=== PATIENT | female | born 1940 | race Caucasian/White ===

== ENCOUNTER → 2016-12-31 | Outpatient (CLI) | payer MEDICARE ==
--- NOTE | 2016-12-31 15:59 | US ---
EXAMINATION TYPE: US kidneys/renal and bladder DATE OF EXAM: 12/31/2016 COMPARISON: NONE CLINICAL HISTORY: N13.2 HYDRONEPHROSIS. Right back pain EXAM MEASUREMENTS: Right Kidney: 10.2 x 4.4 x 5.4 cm Left Kidney: 10.6 x 5.3 x 3.9 cm Right Kidney: multiple stones with largest = 1.4cm, anechoic area anteriorly = 3.8 x 2.4 x 3.7cm Left Kidney: probable stones lower pole, largest = 0.8cm Bladder: not fully distended Bilateral Jets seen: no Incidental finding: cholelithiasis IMPRESSION: 1. Right renal stones without hydronephrosis. 2. Cholelithiasis. 3. Left renal stones without hydronephrosis.
== END | disposition home or self-care (01) ==
LOC: RADUSWWP 14:54
PROVIDERS: ATTEND Internal Medicine Hematology & Oncology
DX: C34.91 Malignant neoplasm of unspecified part of right bronchus or lung (principal); E03.9 Hypothyroidism, unspecified; N20.0 Calculus of kidney; K80.20 Calculus of gallbladder without cholecystitis without obstruction
CPT/HCPCS: 76770

== ENCOUNTER 2019-08-23 21:12 | Inpatient (IN) | payer MEDICARE ==
[2019-08-23] MEDS ORDERED: SODIUM CHLORIDE 0.9% 1,000 ML IV STA (21:58)
[2019-08-23 22:15] LABS: Basophils # (A) 0.1 k/uL (0-0.2); Basophils % (A) 0 %; Eosinophils # (A) 0.2 k/uL (0-0.7); Eosinophils % (A) 1 %; HCT 41.9 % (34.0-46.0); HGB 13.5 gm/dL (11.4-16.0); Hypochromasia Slight; Lymphocytes # (A) 1.1 k/uL (1.0-4.8); Lymphocytes % (A) 7 %; MCH 28.8 pg (25.0-35.0); MCHC 32.3 g/dL (31.0-37.0); MCV 89.4 fL (80.0-100.0); Mean Platelet Volume 8.4; Monocytes % (A) 6 %; Neutrophils # (A) 12.8 k/uL (1.3-7.7); Neutrophils % (A) 84 %; Platelet Count 363 k/uL (150-450); RBC 4.68 m/uL (3.80-5.40); RDW 15.7 % (11.5-15.5); WBC 15.3 k/uL (3.8-10.6)
[2019-08-23 22:24] LABS: Albumin 3.9 g/dL (3.5-5.0); Calcium 9.3 mg/dL (8.4-10.2); Potassium 4.8 mmol/L (3.5-5.1); Total Bilirubin 1.3 mg/dL (0.2-1.3); Total Protein 7.3 g/dL (6.3-8.2)
--- NOTE | 2019-08-23 22:27 | XR ---
EXAMINATION TYPE: XR chest 2V DATE OF EXAM: 08/23/2019 COMPARISON: 04/29/2016 HISTORY: Difficulty breathing. TECHNIQUE: FINDINGS: There is extensive coarse interstitial infiltrate throughout the lungs. There is slight smiley vated right diaphragm. There is right shoulder prosthesis. There are chest leads. There is some bulki ness of the pulmonary selena. I do not suspect heart failure. IMPRESSION: Extensive pulmonary fibrosis similar to old exam. There is probably some bronchial adenop athy. Sarcoidosis is possible.
[2019-08-23 22:52] LABS: INR 1.1 (<1.2); Partial Thromboplastin Time 22.5 sec (22.0-30.0); Prothrombin Time 11.5 sec (9.0-12.0)
[2019-08-23] MEDS ORDERED: methylPREDNISolone SOD SUCCI 125 MG/2 ML VIAL IV STA (23:12)
[2019-08-23] MEDS ORDERED: cefTRIAXone IN SWFI 1,000 MG/10 ML SYRINGE IVP STA (23:12)
[2019-08-23] MEDS ORDERED: IPRATROPIUM-ALBUTEROL 3 ML NEB INHALATION STA (23:12)
--- NOTE | 2019-08-23 23:12 | ED ---
SOB HPI - General Chief Complaint: Shortness of Breath Stated Complaint: HERNAN, fever Time Seen by Provider: 08/23/19 21:44 Source: patient, family, RN notes reviewed, old records reviewed Mode of arrival: wheelchair Limitations: no limitations - History of Present Illness Initial Comments: This 79-year-old female history of COPD and interstitial lung disease who states she's had progressively worsening shortness of breath or past couple days with fever cough with green-yellow phlegm no overt chest pain however. She has had sweats today. States her temperature was up to 100.6 or higher. She was noted have 80% saturation on room air she does not use of grass or nebulizers she states or inhalers. She did recently have a left jugular vein clot and was treated [facility] approximately 2 weeks ago. No other complaints or modifying factors at this time MD Complaint: shortness of breath, cough - Related Data Allergies Allergy/AdvReac Type Severity Reaction Status Date / Time amlodipine Allergy Swelling Verified 08/23/19 21:40 atorvastatin Allergy Unknown Verified 08/23/19 21:40 meperidine [From Demerol] Allergy Nausea & Verified 08/23/19 21:40 Vomiting Review of Systems ROS Statement: Those systems with pertinent positive or pertinent negative responses have been documented in the HPI. ROS Other: All systems not noted in ROS Statement are negative. Past Medical History Past Medical History: Cancer, GERD/Reflux, Hyperlipidemia, Hypertension, Pneumonia Additional Past Medical History / Comment(s): lung cancer History of Any Multi-Drug Resistant Organisms: None Reported Past Surgical History: Joint Replacement Additional Past Surgical History / Comment(s): right upper lobe removal from lung cancer 2005, bilat knee, R shoulder Past Psychological History: No Psychological Hx Reported Smoking Status: Never smoker Past Alcohol Use History: Occasional Past Drug Use History: None Reported General Exam - General Exam Comments Initial Comments: This is a well-developed well-nourished awake alert oriented 3 female Limitations: no limitations General appearance: alert, anxious Head exam: Present: atraumatic, normocephalic, normal inspection Eye exam: Present: normal appearance, PERRL, EOMI. Absent: scleral icterus, conjunctival injection, periorbital swelling ENT exam: Present: normal exam, mucous membranes moist Neck exam: Present: normal inspection. Absent: tenderness, meningismus, lymphadenopathy Respiratory exam: Present: wheezes, decreased breath sounds. Absent: respiratory distress, rales, rhonchi, stridor Cardiovascular Exam: Present: regular rate, normal rhythm, normal heart sounds. Absent: systolic murmur, diastolic murmur, rubs, gallop, clicks GI/Abdominal exam: Present: soft, normal bowel sounds. Absent: distended, tenderness, guarding, rebound, rigid Extremities exam: Present: normal inspection, full ROM, normal capillary refill. Absent: tenderness, pedal edema, joint swelling, calf tenderness Back exam: Present: normal inspection Neurological exam: Present: alert, oriented X3, CN II-XII intact Psychiatric exam: Present: normal affect, normal mood Skin exam: Present: warm, intact, normal color, diaphoretic. Absent: rash Course Vital Signs 08/23/19 08/23/19 08/23/19 21:33 22:21 22:53 Temperature 99.7 F H 99.2 F Pulse Rate 96 Respiratory 22 20 18 Rate Blood Pressure 120/70 131/73 O2 Sat by Pulse 82 L 97 Oximetry Medical Decision Making - Medical Decision Making Reevaluation patient reveals she still dyspneic and wheezing x-ray shows evidence of interstitial lung disease no definitive pneumonia though somewhat was suspected. I did discuss findings with the patient she'll be admitted she has evidence of pneumonitis as well as asthmatic bronchitis and fever patient be admitted to Dr. Sanchez with Dr. Briceno on consult - Lab Data Result diagrams: 08/23/19 22:02 08/23/19 22:02 Lab Results 08/23/19 08/23/19 08/23/19 Range/Units 22:02 22:02 22:02 WBC 15.3 H (3.8-10.6) k/uL RBC 4.68 (3.80-5.40) m/uL Hgb 13.5 (11.4-16.0) gm/dL Hct 41.9 (34.0-46.0) % MCV 89.4 (80.0-100.0) fL MCH 28.8 (25.0-35.0) pg MCHC 32.3 (31.0-37.0) g/dL RDW 15.7 H (11.5-15.5) % Plt Count 363 (150-450) k/uL Neutrophils % 84 % Lymphocytes % 7 % Monocytes % 6 % Eosinophils % 1 % Basophils % 0 % Neutrophils # 12.8 H (1.3-7.7) k/uL Lymphocytes # 1.1 (1.0-4.8) k/uL Monocytes # 1.0 (0-1.0) k/uL Eosinophils # 0.2 (0-0.7) k/uL Basophils # 0.1 (0-0.2) k/uL Hypochromasia Slight PT 11.5 (9.0-12.0) sec INR 1.1 (<1.2) APTT 22.5 (22.0-30.0) sec Sodium 136 L (137-145) mmol/L Potassium 4.8 (3.5-5.1) mmol/L Chloride 99 (98-107) mmol/L Carbon Dioxide 25 (22-30) mmol/L Anion Gap 12 mmol/L BUN 25 H (7-17) mg/dL Creatinine 1.48 H (0.52-1.04) mg/dL Est GFR (CKD-EPI)AfAm 38 (>60 ml/min/1.73 sqM) Est GFR (CKD-EPI)NonAf 33 (>60 ml/min/1.73 sqM) Glucose 128 H (74-99) mg/dL Plasma Lactic Acid Ruben (0.7-2.0) mmol/L Calcium 9.3 (8.4-10.2) mg/dL Magnesium 2.0 (1.6-2.3) mg/dL Total Bilirubin 1.3 (0.2-1.3) mg/dL AST 24 (14-36) U/L ALT 15 (4-34) U/L Alkaline Phosphatase 178 H (38-126) U/L Creatine Kinase 82 (30-135) U/L Troponin I (0.000-0.034) ng/mL NT-Pro-B Natriuret Pep pg/mL Total Protein 7.3 (6.3-8.2) g/dL Albumin 3.9 (3.5-5.0) g/dL 08/23/19 08/23/19 08/23/19 Range/Units 22:02 22:02 22:02 WBC (3.8-10.6) k/uL RBC (3.80-5.40) m/uL Hgb (11.4-16.0) gm/dL Hct (34.0-46.0) % MCV (80.0-100.0) fL MCH (25.0-35.0) pg MCHC (31.0-37.0) g/dL RDW (11.5-15.5) % Plt Count (150-450) k/uL Neutrophils % % Lymphocytes % % Monocytes % % Eosinophils % % Basophils % % Neutrophils # (1.3-7.7) k/uL Lymphocytes # (1.0-4.8) k/uL Monocytes # (0-1.0) k/uL Eosinophils # (0-0.7) k/uL Basophils # (0-0.2) k/uL Hypochromasia PT (9.0-12.0) sec INR (<1.2) APTT (22.0-30.0) sec Sodium (137-145) mmol/L Potassium (3.5-5.1) mmol/L Chloride (98-107) mmol/L Carbon Dioxide (22-30) mmol/L Anion Gap mmol/L BUN (7-17) mg/dL Creatinine (0.52-1.04) mg/dL Est GFR (CKD-EPI)AfAm (>60 ml/min/1.73 sqM) Est GFR (CKD-EPI)NonAf (>60 ml/min/1.73 sqM) Glucose (74-99) mg/dL Plasma Lactic Acid Ruben 1.4 (0.7-2.0) mmol/L Calcium (8.4-10.2) mg/dL Magnesium (1.6-2.3) mg/dL Total Bilirubin (0.2-1.3) mg/dL AST (14-36) U/L ALT (4-34) U/L Alkaline Phosphatase (38-126) U/L Creatine Kinase (30-135) U/L Troponin I <0.012 (0.000-0.034) ng/mL NT-Pro-B Natriuret Pep 1340 pg/mL Total Protein (6.3-8.2) g/dL Albumin (3.5-5.0) g/dL - EKG Data -: EKG Interpreted by Ms EKG shows normal: sinus rhythm EKG Comments: Sinus tachycardia 102 QRS 90 QT since QTC 3:30/440 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
[2019-08-23] MEDS ORDERED: PNEUMONIA PROTOCOL UTILIZED 1 EACH MISC PO PRN (23:24)
[2019-08-23] MEDS ORDERED: AZITHROMYCIN 500 MG in SODIUM CHLORIDE 0.9% 250 ML IVPB STA (23:24)
[2019-08-23] MEDS: IPRATROPIUM-ALBUTEROL 3 ML NEB INHALATION SCH (23:37)
[2019-08-24 00:47] LABS: Appearance,Urine Cloudy (Clear); Bacteria,Urine Occasional /hpf; Bilirubin,Urine Negative (Negative); Blood,Urine Trace (Negative); Calcium Oxalate Crystals,Urine Few /hpf; Color,Urine Yellow; Glucose,Urine (UA) Negative (Negative); Hyaline Casts,Urine 3 /lpf (0-2); Ketones,Urine Negative (Negative); Leukocyte Esterase,Urine Large (Negative); Nitrite,Urine Negative (Negative); PH, Urine 6.5 (5.0-8.0); Protein,Urine 1+ (Negative); RBC,Urine 29 /hpf (0-5); Specific Gravity,Urine 1.014 (1.001-1.035); Squamous Epithelial Cell,Urine 3 /hpf (0-4); WBC,Urine 87 /hpf (0-5)
[2019-08-24] MEDS: SODIUM CHLORIDE 0.9% 1,000 ML IV SCH ×2 (00:48→10:41)
[2019-08-24] MEDS: methylPREDNISolone SOD SUCCI 125 MG/2 ML VIAL IV SCH ×5 (00:53→23:28)
[2019-08-24] MEDS: IPRATROPIUM-ALBUTEROL 3 ML NEB INHALATION SCH ×5 (06:03→21:29)
--- NOTE | 2019-08-24 07:14 | XR ---
EXAMINATION TYPE: XR chest 2V DATE OF EXAM: 08/24/2019 COMPARISON: Chest x-ray 08/23/2019, 04/29/2016 HISTORY: Pneumonia TECHNIQUE: Frontal and lateral views of the chest are obtained. FINDINGS: There is no pleural effusion or pneumothorax seen. The cardiac silhouette size is stable. Patchy perihilar density is present with prominence of interstitium, some and like areas of increa sed attenuation are present at the lung bases likely subsegmental atelectatic change. The osseous str uctures are intact, patient is status post right shoulder arthroplasty, lumbar fusion, there is an S- shaped thoracic lumbar scoliosis. There are overlying cardiac leads. Prominence of the pulmonary miguel ry could be indicative of pulmonary artery hypertension. IMPRESSION: Correlate for pulmonary artery hypertension. Possible interstitial lung disease, atelect asis or scarring, atelectasis. Additional findings above.
[2019-08-24] MEDS ORDERED: FUROSEMIDE 10 MG/ML 2 ML VIAL IV ONE (10:17)
--- NOTE | 2019-08-24 11:57 | P.CNPUL ---
History of Present Illness Consult date: 08/24/19 Requesting physician: Didi Sanchez Reason for consult: dyspnea, abnormal CXR/CT Chief complaint: Shortness of breath, fever, phlegm production History of present illness: This is a very pleasant 79-year-old female patient who follows with Dr. Redd as her primary care provider. She has a history of lung cancer with previous right upper lobe ectomy in 2006, hyperlipidemia, GERD, hypertension. Lifelong nonsmoker. She was recently found to have a blood clot in a blood vessel in the left neck and was placed on Eliquis. During this workup some pulmonary nodules were noted. She follows with Dr. Collier in our office for COPD. She is maintained on Symbicort, Incruse, albuterol. She was just there 08/17/2019. At that time she had recently had a CAT scan of the chest that Pepper Lind that mentioned possible lung nodules. He had set her up for a PET scan next week. She presented here to the emergency room yesterday with complaints of increasing shortness of breath, fever, greenish yellow sputum production. Chest x-ray shows possible pulmonary artery hypertension, interstitial lung disease, atelectasis or scarring. She was initiated on DuoNeb inhalations, IV Solu-Medro l, antibiotics in the form of ceftriaxone and azithromycin. She is seen today in consultation on the regular medical floor. She is awake and alert in no acute distress. She states she is feeling quite a bit better today as compared to yesterday. She is maintaining O2 saturations in the low 90s on 4 L/m per nasal cannula. She's afebrile. Hemodynamically stable. Urine culture pending. White count 15.3. Hemoglobin 13.5. Sodium 136. Potassium 4.8. Creatinine 1.48. Troponin negative. ProBNP 1340. Isaacs virus screen pending. Review of Systems REVIEW OF SYSTEMS: CONSTITUTIONAL: Denies any recent significant weight loss or weight gain. EYES: Denies change in vision. EARS, NOSE, MOUTH, THROAT: Denies headaches, denies sore throat. CARDIOVASCULAR: Denies chest pain, palpitations or syncopal episodes. RESPIRATORY: Positive for shortness of breath, cough, congestion no hemoptysis. GASTROINTESTINAL: Denies change in appetite, denies abdominal pain GENITOURINARY: Denies hematuria, denies infections. MUSKULOSKELETAL: Denies pain, denies swelling. INTEGUMENTARY: Denies rash, denies eczema. NEUROLOGICAL: Denies recent memory loss, no recent seizure activity. PSYCHIATRIC: Denies anxiety, denies depression. HEMATOLOGIC/LYMPHATIC: Denies anemia, denies enlarged lymph nodes. Past Medical History Past Medical History: Cancer, GERD/Reflux, Hyperlipidemia, Hypertension, Pneumonia Additional Past Medical History / Comment(s): lung cancer History of Any Multi-Drug Resistant Organisms: None Reported Past Surgical History: Joint Replacement Additional Past Surgical History / Comment(s): right upper lobe removal from lung cancer 2005, bilat knee, R shoulder Past Psychological History: No Psychological Hx Reported Smoking Status: Never smoker Past Alcohol Use History: Occasional Past Drug Use History: None Reported Medications and Allergies Home Medications Medication Instructions Recorded Confirmed Type Albuterol Inhaler [Ventolin Hfa 2 puff INHALATION RT-QID PRN 08/23/19 08/23/19 History Inhaler] Allopurinol [Zyloprim] 100 mg PO BID 08/23/19 08/23/19 History Apixaban [Eliquis] 5 mg PO BID 08/23/19 08/23/19 History Aspirin EC [Ecotrin Low Dose] 81 mg PO HS 08/23/19 08/23/19 History Budesonide/Formoterol Fumarate 2 puff INHALATION RT-BID 08/23/19 08/23/19 History [Symbicort 160-4.5 Mcg Inhaler] Cholecalciferol [Vitamin D3 (25 1,000 unit PO DAILY 08/23/19 08/23/19 History Mcg = 1000 Iu)] Cyanocobalamin (Vitamin B-12) 1,000 mcg PO DAILY 08/23/19 08/23/19 History [Vitamin B-12] Doxazosin [Cardura] 4 mg PO HS 08/23/19 08/23/19 History Furosemide [Lasix] 20 mg PO DAILY 08/23/19 08/23/19 History Levothyroxine Sodium [Synthroid] 150 mcg PO DAILY 08/23/19 08/23/19 History Montelukast Sodium [Singulair] 10 mg PO HS 08/23/19 08/23/19 History Omeprazole [PriLOSEC] 20 mg PO DAILY 08/23/19 08/23/19 History Pravastatin Sodium [Pravachol] 40 mg PO HS 08/23/19 08/23/19 History Tolterodine ER [Detrol LA] 4 mg PO DAILY 08/23/19 08/23/19 History Umeclidinium Sharon [Incruse 1 puff INHALATION RT-DAILY 08/23/19 08/23/19 History Ellipta] Vit C/E/Zn/Coppr/Lutein/Zeaxan 2 cap PO DAILY 08/23/19 08/23/19 History [Preservision Areds 2 Softgel] Allergies Allergy/AdvReac Type Severity Reaction Status Date / Time amlodipine Allergy Swelling Verified 08/23/19 23:43 atorvastatin Allergy Unknown Verified 08/23/19 23:43 meperidine [From Demerol] Allergy Nausea & Verified 08/23/19 23:43 Vomiting Physical Exam Vitals: Vital Signs Temp Pulse Pulse Resp BP BP Pulse Ox 08/24/19 08:00 82 18 08/24/19 06:18 88 08/24/19 06:10 82 08/24/19 03:46 97.6 F 82 18 144/83 92 L 08/24/19 00:15 98.3 F 77 20 139/79 97 08/23/19 23:51 90 08/23/19 23:43 90 08/23/19 23:35 98.2 F 114 H 20 154/82 94 L 08/23/19 23:26 91 135 H 135/87 97 08/23/19 22:53 99.2 F 96 18 131/73 97 08/23/19 22:21 20 08/23/19 21:33 99.7 F H 22 120/70 82 L Intake and Output 08/23/19 08/24/19 08/24/19 22:59 06:59 14:59 Intake Total 240 Output Total 900 Balance -900 240 Intake: Oral 240 Output: Urine 900 Other: # Voids 1 Weight 117.934 kg 117.934 kg GENERAL EXAM: Alert, active, very pleasant 79-year-old female patient, on 4 L nasal cannula comfortable in no apparent distress. HEAD: Normocephalic. EYES: Normal reaction of pupils, equal size. NOSE: Clear with pink turbinates. THROAT: No erythema or exudates. NECK: No masses, no JVD. CHEST: No chest wall deformity. LUNGS: Equal air entry with bilateral scattered rhonchi, end expiratory wheeze, crackles in the posterior bases CVS: S1 and S2 normal with no audible murmur, regular rhythm. ABDOMEN: No hepatosplenomegaly, normal bowel sounds, no guarding or rigidity. SPINE: No scoliosis or deformity SKIN: No rashes CENTRAL NERVOUS SYSTEM: No focal deficits, tone is normal in all 4 extremities. EXTREMITIES: There is no peripheral edema. No clubbing, no cyanosis. Peripheral pulses are intact. Results - Laboratory Findings CBC and BMP: 08/23/19 22:02 08/23/19 22:02 PT/INR, D-dimer PT 11.5 sec (9.0-12.0) 08/23/19 22:02 INR 1.1 (<1.2) 08/23/19 22:02 Abnormal lab findings: Abnormal Labs 08/23/19 08/23/19 08/23/19 21:58 22:02 22:02 WBC 15.3 H RDW 15.7 H Neutrophils # 12.8 H Sodium 136 L BUN 25 H Creatinine 1.48 H Glucose 128 H Alkaline Phosphatase 178 H Urine Appearance Cloudy H Urine Protein 1+ H Urine Blood Trace H Ur Leukocyte Esterase Large H Urine RBC 29 H Urine WBC 87 H Calcium Oxalate Crystal Few H Urine Bacteria Occasional H Hyaline Casts 3 H - Diagnostic Findings Chest x-ray: image reviewed Assessment and Plan Assessment: 1 Acute on chronic obstructive pulmonary disease, complicated by purulent tracheobronchitis. Chest x-ray revealing possible interstitial lung disease, pulmonary hypertension, atelectasis/scarring. 2 Acute hypoxic respiratory failure secondary to above 3 History of lung cancer status post right upper lobectomy and recent findings of pulmonary nodules on CAT scan done at [facility], PET scan pending for next week. 4 Recent diagnosis of a blood clot in the blood vessel of the left neck, currently on Eliquis 5 Hyperlipidemia 6 Hypertension 7 Osteoarthritis with previous joint replacements 8 Acute kidney injury, creatinine 1.48. Plan: The patient was seen and evaluated by Dr. Briceno Chest x-ray and labs reviewed CoVID 19 screen pending Obtain pro-calcitonin level Continue current treatment plan Give one dose of Lasix 20 mg IVP 1 Repeat chest x-ray in a.m. We will continue to follow and make further recommendations based on her clinical status. I, the cosigning physician, performed a history & physical examination of the patient. Lungs sounds with few scattered rhonchi, crackles in bilateral posterior bases, end expiratory wheeze, diminished. Maintaining good O2 saturations in the 90s on 4 L/m per nasal cannula. I discussed the assessment and plan of care with my nurse practitioner, Kristi Rodas. I attest to the above note as dictated by her.
[2019-08-24] MEDS ORDERED: VIT A,C & E-LUTEIN-MINERALS 1 EACH TAB PO SCH (13:30)
[2019-08-24] MEDS: OXYBUTYNIN 10 MG TAB.ER.24 PO SCH (15:12)
[2019-08-24] MEDS: LEVOTHYROXINE 75 MCG TAB PO SCH (15:12)
[2019-08-24] MEDS: PANTOPRAZOLE 40 MG TABLET PO SCH (15:12)
[2019-08-24] MEDS ORDERED: IPRATROPIUM-ALBUTEROL 3 ML NEB INHALATION PRN (15:46)
[2019-08-24] MEDS ORDERED: HYDROcodone/APAP 5-325MG 1 EACH TAB PO PRN (15:47)
--- NOTE | 2019-08-24 16:32 | CT ---
EXAMINATION TYPE: CT chest wo con DATE OF EXAM: 08/24/2019 COMPARISON: Radiographs same day HISTORY: 79-year-old female Interstitial pneumonia. TECHNIQUE: Contiguous axial scanning of the chest without IV contrast. Coronal and sagittal reconstru ctions performed. CT DLP: 847 mGycm Automated exposure control for dose reduction was used. FINDINGS: Heart normal size without pericardial effusion. Extensive three-vessel coronary artery calcifications are present. Additional aortic valvular calcifications. 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 Mild to moderate atherosclerotic arch calcifications with conventi onal arch vessel branching anatomy. Tortuous descending thoracic aorta. Aneurysmal distal descending thoracic aorta at 3.2 cm. Ectatic infrarenal abdominal aorta partially visualized measuring up to at least 2.9 cm. Underlying a neurysm lower down is not excluded. Partially visualized 1.7 cm calcification possibly within the right renal collecting system. Partiall y visualized gallstone measuring at least 9 mm. Breathing motion artifact in the abdomen. Large caliber to the main right and left pulmonary arteries at 3.2 and 3.1 cm, respectively, suggesti ng underlying pulmonary hypertension. Scattered nonenlarged and mildly enlarged mediastinal lymph nodes are present measuring up to 1.1 cm in the AP window and 1.3 cm in the low right paratracheal region. Patchy peripheral groundglass opacities. Some opacities also extend along the left upper lobe broncho vascular bundles. Some nodular areas are also present, for example in the posterior right lower lobe measuring 9 mm axial image 30, 8 mm anterior right midlung, axial image 21, and 1.5 x 1.1 cm in the a nterior left upper lobe, axial image 16. Fat-containing left Bochdalek hernia. Bones: Partially visualized reverse right shoulder arthroplasty. S-shaped scoliosis with extensive f usion hardware within the lumbar spine. IMPRESSION: 1. PATCHY PERIPHERAL INFILTRATES AND GROUNDGLASS WELL SCATTERED NODULAR AREAS. SOME GROUNDGLASS ALSO EXTENDS ALONG THE BRONCHOVASCULAR BUNDLES. DIFFERENTIAL CONSIDERATIONS INCLUDE ATYPICAL PNEUMON IAS (INCLUDING COVID PNEUMONIA) AND INTERSTITIAL PNEUMONITIS SUCH HEEL SEWER. CLINICALLY CORRELATE. 2. GIVEN THE MORE NODULAR AREAS MEASURING UP TO 1.5 CM, FOLLOW-UP IN 3 MONTHS AFTER TREATMENT TO ENSU RE CLEARANCE. 3. BORDERLINE AND MILDLY ENLARGED MEDIASTINAL LYMPH NODES MEASURING UP TO 1.3 CM, PROBABLY REACTIVE. THESE SHOULD ALSO BE REASSESSED AT THE 3 MONTH FOLLOW-UP. 4. 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
--- NOTE | 2019-08-24 17:09 | HP ---
HISTORY AND PHYSICAL DATE OF SERVICE: 08/24/2019 CHIEF COMPLAINT: Shortness of breath and fever. HISTORY OF PRESENT ILLNESS: This 79-year-old woman, being followed Dr. Oscar Redd in the outpatient setting, is living in the [facility]. The patient has a previous history of hypertension, hyperlipidemia, history of pneumonia, lung cancer, GERD. Patient has a history of apparent interstitial lung disease also. Patient worsening of her shortness of breath and fever for the last several days. The patient came to [facility]. Saturation was only 80% oxygen and temperature was 100.6. The patient on evaluation white count is elevated at 15.3, and creatinine is 1.48. The baseline creatinine was 1.27. The UA was also abnormal. There is no history of any recent travel at this time. She is being closely monitored. The most recent chest x-ray, which was personally reviewed by me, showed bilateral shadows indicating possibly pneumonia and interstitial pneumonia bilateral, right more the left. PAST MEDICAL HISTORY: Reviewed. REVIEW OF SYSTEMS: CARDIOVASCULAR SYSTEM: As mentioned earlier. GI: As mentioned earlier. : No dysuria or retention. NERVOUS SYSTEM: No numbness or weakness. CURRENT MEDICATIONS: 1. DuoNeb q.i.d. 2. Zyloprim. 3. Eliquis. 4. Aspirin. 5. Zithromax. 6. Rocephin 1 gram. 7. Cardura. 8. Synthroid. 9. Solu-Medrol. 10.Ditropan. 11.Pravachol. PHYSICAL EXAM: Patient is alert, oriented x3. Pulse 76, blood pressure 140/56 respiration 20, temp normal, pulse ox 98% on 4 L. HEENT: Conjunctivae normal. Oral mucosa moist. NECK: No jugular venous distention. No carotid bruits. No lymph node enlargement. CARDIOVASCULAR SYSTEMS: S1 and S2. RESPIRATION: Breath sounds diminished at the bases with scattered rhonchi and expiratory wheezing. ABDOMEN: Soft, obese, nontender. LEGS: No edema, no swelling. NERVOUS SYSTEM: No focal deficits. LAB STUDIES: WBC 15.2, sodium 136, creatinine is 1.48. ASSESSMENT: 1. Chronic obstructive pulmonary disease with acute exacerbation with bilateral pneumonia, possibly interstitial pneumonia, possibly gram-negative pneumonia with acute hypoxic respiratory failure. 2. Increased WBC. 3. Hyponatremia. 4. Increased creatinine with acute renal failure with acute on chronic renal failure with chronic kidney disease, possible stage III baseline. 5. Rule out urinary tract infection. 6. History of gastroesophageal reflux disease. 7. History of hypertension. 8. History of hyperlipidemia. 9. History of pneumonia. 10.History of lung cancer. 11.History of right upper lobe lobectomy for lung cancer in 2005. 12.Degenerative joint disease. 13.Obesity with body mass index of 38.4. RECOMMENDATIONS AND DISCUSSION: This is an 79-year-old woman who presented with multiple complex medical issues, we will monitor the patient closely. Continue the current management and continue the steroids, current bronchodilators, empiric antibiotics. Also recommend a CT scan of the chest. Otherwise, closely follow with Pulmonary. DVT prophylaxis. Guarded prognosis. Further recommendations to follow. MMODL / IJN: [id number] /
[2019-08-24] MEDS: FUROSEMIDE 10 MG/ML 4 ML VIAL IV SCH (18:01)
[2019-08-24] MEDS: CYANOCOBALAMIN 500 MCG TAB PO SCH (18:05)
[2019-08-24] MEDS: ASPIRIN 81 MG PO SCH (19:59)
[2019-08-24] MEDS: DOXAZOSIN 4 MG TAB PO SCH (19:59)
[2019-08-24] MEDS: APIXABAN 5 MG TAB PO SCH (19:59)
[2019-08-24] MEDS: ALLOPURINOL 100 MG TAB PO SCH (19:59)
[2019-08-24] MEDS: MONTELUKAST 10 MG TAB PO SCH (19:59)
[2019-08-24] MEDS: PRAVASTATIN SODIUM 40 MG TAB PO SCH (19:59)
[2019-08-24] MEDS: FORMOTEROL FUMARATE 20 MCG/2 ML NEBU INHALATION SCH (21:29)
[2019-08-24] MEDS: BUDESONIDE 1 MG/2 ML NEBU INHALATION SCH (21:29)
[2019-08-24] MEDS: AZITHROMYCIN 500 MG TAB PO SCH (23:29)
[2019-08-25] MEDS: IPRATROPIUM-ALBUTEROL 3 ML NEB INHALATION SCH ×7 (00:27→19:31)
[2019-08-25] MEDS: LEVOTHYROXINE 75 MCG TAB PO SCH (06:32)
[2019-08-25] MEDS: PANTOPRAZOLE 40 MG TABLET PO SCH (06:32)
[2019-08-25] MEDS: methylPREDNISolone SOD SUCCI 125 MG/2 ML VIAL IV SCH ×4 (06:32→23:17)
[2019-08-25 07:14] LABS: Anisocytosis Slight; Basophils % (A) 0 %; Eosinophils % (A) 0 %; HCT 40.4 % (34.0-46.0); HGB 12.3 gm/dL (11.4-16.0); Hypochromasia Slight; Lymphocytes # (A) 0.7 k/uL (1.0-4.8); Lymphocytes % (A) 6 %; MCH 27.2 pg (25.0-35.0); MCHC 30.4 g/dL (31.0-37.0); MCV 89.7 fL (80.0-100.0); Mean Platelet Volume 8.2; Monocytes # (A) 0.4 k/uL (0-1.0); Monocytes % (A) 4 %; Neutrophils # (A) 9.8 k/uL (1.3-7.7); Neutrophils % (A) 89 %; Platelet Count 398 k/uL (150-450)
[2019-08-25 07:21] LABS: Calcium 8.9 mg/dL (8.4-10.2); Potassium 4.5 mmol/L (3.5-5.1)
[2019-08-25] MEDS: FORMOTEROL FUMARATE 20 MCG/2 ML NEBU INHALATION SCH ×2 (08:05→19:31)
[2019-08-25] MEDS: BUDESONIDE 1 MG/2 ML NEBU INHALATION SCH ×2 (08:05→19:31)
[2019-08-25] MEDS: FUROSEMIDE 10 MG/ML 4 ML VIAL IV SCH (08:59)
[2019-08-25] MEDS: OXYBUTYNIN 10 MG TAB.ER.24 PO SCH (09:00)
[2019-08-25] MEDS: CYANOCOBALAMIN 500 MCG TAB PO SCH (09:00)
[2019-08-25] MEDS: ALLOPURINOL 100 MG TAB PO SCH ×2 (09:00→21:00)
[2019-08-25] MEDS ORDERED: CHOLECALCIFEROL 1,000 UNIT TAB PO SCH (09:00)
[2019-08-25] MEDS: APIXABAN 5 MG TAB PO SCH ×2 (09:00→19:43)
--- NOTE | 2019-08-25 09:10 | XR ---
EXAMINATION TYPE: XR chest 1V portable DATE OF EXAM: 08/25/2019 COMPARISON: 08/24/2019 INDICATION: Short of breath, pneumonia TECHNIQUE: Single frontal view of the chest is obtained. FINDINGS: The heart size is normal. The pulmonary vasculature is normal. There is some mild patchy infiltrate through the right peripheral lung. This is similar to prior stud y. Consider pneumonia. Consider atypical pneumonia. Diaphragm appears stable. A focal eventration is present. Scoliosis is noted within the thoracic spine. Prominence of the main pulmonary arteries whi ch can be associated with pulmonary hypertension. Some surgical clips may be at the right hilar regio n IMPRESSION: 1. Patchy infiltrates in the periphery of the right lung. Correlate for pneumonia and atypical pneumo kali.
--- NOTE | 2019-08-25 13:22 | P.PN ---
Subjective Progress Note Date: 08/25/19 Principal diagnosis: Community-acquired pneumonia of the right lung This is a very pleasant 79-year-old female patient who follows with Dr. Redd as her primary care provider. She has a history of lung cancer with previous right upper lobe ectomy in 2006, hyperlipidemia, GERD, hypertension. Lifelong nonsmoker. She was recently found to have a blood clot in a blood vessel in the left neck and was placed on Eliquis. During this workup some pulmonary nodules were noted. She follows with Dr. Collier in our office for COPD. She is maintained on Symbicort, Incruse, albuterol. She was just there 08/17/2019. At that time she had recently had a CAT scan of the chest that Pepper Lind that mentioned possible lung nodules. He had set her up for a PET scan next week. She presented here to the emergency room yesterday with complaints of increasing shortness of breath, fever, greenish yellow sputum production. Chest x-ray shows possible pulmonary artery hypertension, interstitial lung disease, atelectasis or scarring. She was initiated on DuoNeb inhalations, IV Solu- Medrol, antibiotics in the form of ceftriaxone and azithromycin. She is seen today in consultation on the regular medical floor. She is awake and alert in no acute distress. She states she is feeling quite a bit better today as compared to yesterday. She is maintaining O2 saturations in the low 90s on 4 L/m per nasal cannula. She's afebrile. Hemodynamically stable. Urine culture pending. White count 15.3. Hemoglobin 13.5. Sodium 136. Potassium 4.8. Creatinine 1.48. Troponin negative. ProBNP 1340. Isaacs virus screen pending. The patient is seen today 08/25/2019 in follow-up on the regular medical floor. She is currently sitting up in a chair at the bedside. Awake and alert in no acute distress. She continues with use nonproductive cough. No fever chills. Maintain O2 saturations in the 90s on 2 L/m per nasal cannula. She's afebrile. Hemodynamically stable. Urine culture positive for group D enterococcus, Pseudomonas species, Aerococcus urinae. Blood culture reveals no growth to date. White count 11.0. Hemoglobin 12.3. Sodium 139. Potassium 4.5. Creatin ine 1.36. Isaacs virus not detected. Remains on ceftriaxone and azithromycin along with IV Solu-Medrol and bronchodilators. Anticoagulated with Eliquis. Objective - Vital Signs Vital signs: Vital Signs Temp 97.6 F 08/25/19 08:45 Pulse 90 08/25/19 12:13 Resp 18 08/25/19 12:13 BP 138/68 08/25/19 08:45 Pulse Ox 94 L 08/25/19 08:45 Intake & Output 08/24/19 08/25/19 08/25/19 18:59 06:59 18:59 Intake Total 720 780 Output Total 375 Balance 345 780 Intake: Oral 720 780 Output: Urine 375 Other: Voiding Method Toilet # Voids 3 2 - Exam GENERAL EXAM: Alert, active, very pleasant 79-year-old female patient, on 2 L nasal cannula comfortable in no apparent distress. HEAD: Normocephalic. EYES: Normal reaction of pupils, equal size. NOSE: Clear with pink turbinates. THROAT: No erythema or exudates. NECK: No masses, no JVD. CHEST: No chest wall deformity. LUNGS: Equal air entry with bilateral scattered rhonchi, end expiratory wheeze, crackles in the posterior bases CVS: S1 and S2 normal with no audible murmur, regular rhythm. ABDOMEN: No hepatosplenomegaly, normal bowel sounds, no guarding or rigidity. SPINE: No scoliosis or deformity SKIN: No rashes CENTRAL NERVOUS SYSTEM: No focal deficits, tone is normal in all 4 extremities. EXTREMITIES: There is no peripheral edema. No clubbing, no cyanosis. Peripheral pulses are intact. - Labs CBC & Chem 7: 08/25/19 06:20 08/25/19 06:20 Labs: Abnormal Lab Results - Last 24 Hours (Table) 08/23/19 08/25/19 08/25/19 Range/Units 22:02 06:20 06:20 WBC 11.0 H (3.8-10.6) k/uL MCHC 30.4 L (31.0-37.0) g/dL RDW 16.0 H (11.5-15.5) % Neutrophils # 9.8 H (1.3-7.7) k/uL Lymphocytes # 0.7 L (1.0-4.8) k/uL BUN 35 H (7-17) mg/dL Creatinine 1.36 H (0.52-1.04) mg/dL Glucose 195 H (74-99) mg/dL Procalcitonin 0.29 H (0.02-0.09) ng/mL Microbiology - Last 24 Hours (Table) 08/23/19 21:58 Urine Culture - Preliminary Urine,Clean Catch Group D Enterococcus Pseudomonas spec Aerococcus urinae 08/23/19 22:38 Blood Culture - Preliminary Blood No Growth after 24 hours Assessment and Plan Assessment: 1 Acute on chronic obstructive pulmonary disease, complicated by purulent tracheobronchitis. Computed tomography scan of the chest reveals patchy peripheral infiltrates and ground glass as well as scattered nodular areas. Some ground glass also extends along the bronchovascular bundles. Differential considerations include atypical pneumonias and interstitial pneumonitis. Covid screen negative. There is also enlarged mediastinal lymph nodes measuring up to 1.3 cm. 2 Acute hypoxic respiratory failure secondary to above 3 History of lung cancer status post right upper lobectomy and recent findings of pulmonary nodules on CAT scan, PET scan pending for next week. 4 Recent diagnosis of a blood clot in the blood vessel of the left neck, currently on Eliquis 5 Hyperlipidemia 6 Hypertension 7 Osteoarthritis with previous joint replacements 8 Acute kidney injury, creatinine 1.48. Plan: The patient was seen and evaluated by Dr. Briceno CAT scan, Chest x-ray and labs reviewed CoVID 19 ruled out Pro-calcitonin 0.29 Continue current treatment plan Titrate down the FiO2 as tolerated We will continue to follow and make further recommendations based on her clinical status. I, the cosigning physician, performed a history & physical examination of the patient. Lungs sounds with few scattered rhonchi, crackles in bilateral posterior bases, end expiratory wheeze, diminished. Maintaining good O2 saturations in the 90s on 2 L/m per nasal cannula. I discussed the assessment and plan of care with my nurse practitioner, Kristi Rodas. I attest to the above note as dictated by her.
[2019-08-25] MEDS: MONTELUKAST 10 MG TAB PO SCH (19:43)
[2019-08-25] MEDS: PRAVASTATIN SODIUM 40 MG TAB PO SCH (19:43)
[2019-08-25] MEDS: DOXAZOSIN 4 MG TAB PO SCH (19:43)
[2019-08-25] MEDS: ASPIRIN 81 MG PO SCH (19:43)
[2019-08-25] MEDS ORDERED: VIT A,C & E-LUTEIN-MINERALS 1 EACH TAB PO SCH (21:00)
--- NOTE | 2019-08-25 22:53 | P.CONS ---
History of Present Illness - Reason for Consult Consult date: 08/25/19 Pneumonia and a question of COVID19 Requesting physician: Fabiana Pimentel - Chief Complaint Shortness of breath and cough few days - History of Present Illness Patient is 79 year female with a past medical history significant for lung cancer in this patient status post right upper lobectomy in 2005 in this patient history of COPD as well she presented to [facility] ER on 08/23/2019 with a chief complaints of increasing shortness of breath to be getting worse for the last few days patient also have a cough which has been greatly density and has been bringing up some yellowish to green sputum denies having hemoptysis or chest pain. The patient did have some chills but denies high-grade fever with asymptomatic the patient was well treated by the physician on arrival to the ER patient did have low-grade fever of 99.7F patient did have elevated white count of 15,000 chest x-ray with some infiltrate CT of the chest did show some peripheral groundglass opacities patient also have a positive UA patient has been admitted hospital had been started on steroids bronchodilator Rocephin and Zithromax infectious disease was consulted today with concern for possible pneumonia and coordinate infection, as of today's evaluation of the patient overall breathing has improved and the cough is decreased intensity and further fever and white count had shown a downward trend as well Review of Systems Positive point has been mentioned in the HPI rest of the systems are negative Past Medical History Past Medical History: Cancer, GERD/Reflux, Hyperlipidemia, Hypertension, Pneumonia Additional Past Medical History / Comment(s): lung cancer History of Any Multi-Drug Resistant Organisms: None Reported Past Surgical History: Joint Replacement Additional Past Surgical History / Comment(s): right upper lobe removal from lung cancer 2005, bilat knee, R shoulder Past Psychological History: No Psychological Hx Reported Smoking Status: Never smoker Past Alcohol Use History: Occasional Past Drug Use History: None Reported Medications and Allergies Home Medications Medication Instructions Recorded Confirmed Type Albuterol Inhaler [Ventolin Hfa 2 puff INHALATION RT-QID PRN 08/23/19 08/23/19 History Inhaler] Allopurinol [Zyloprim] 100 mg PO BID 08/23/19 08/23/19 History Apixaban [Eliquis] 5 mg PO BID 08/23/19 08/23/19 History Aspirin EC [Ecotrin Low Dose] 81 mg PO HS 08/23/19 08/23/19 History Budesonide/Formoterol Fumarate 2 puff INHALATION RT-BID 08/23/19 08/23/19 History [Symbicort 160-4.5 Mcg Inhaler] Cholecalciferol [Vitamin D3 (25 1,000 unit PO DAILY 08/23/19 08/23/19 History Mcg = 1000 Iu)] Cyanocobalamin (Vitamin B-12) 1,000 mcg PO DAILY 08/23/19 08/23/19 History [Vitamin B-12] Doxazosin [Cardura] 4 mg PO HS 08/23/19 08/23/19 History Furosemide [Lasix] 20 mg PO DAILY 08/23/19 08/23/19 History Levothyroxine Sodium [Synthroid] 150 mcg PO DAILY 08/23/19 08/23/19 History Montelukast Sodium [Singulair] 10 mg PO HS 08/23/19 08/23/19 History Omeprazole [PriLOSEC] 20 mg PO DAILY 08/23/19 08/23/19 History Pravastatin Sodium [Pravachol] 40 mg PO HS 08/23/19 08/23/19 History Tolterodine ER [Detrol LA] 4 mg PO DAILY 08/23/19 08/23/19 History Umeclidinium [place] [Incruse 1 puff INHALATION RT-DAILY 08/23/19 08/23/19 History Ellipta] Vit C/E/Zn/Coppr/Lutein/Zeaxan 2 cap PO DAILY 08/23/19 08/23/19 History [Preservision Areds 2 Softgel] Allergies Allergy/AdvReac Type Severity Reaction Status Date / Time amlodipine Allergy Swelling Verified 08/23/19 23:43 atorvastatin Allergy Unknown Verified 08/23/19 23:43 meperidine [From Demerol] Allergy Nausea & Verified 08/23/19 23:43 Vomiting Physical Exam Vitals: Vital Signs Temp Pulse Pulse Resp BP Pulse Ox 08/25/19 12:13 90 18 08/25/19 12:04 88 18 08/25/19 08:45 97.6 F 92 18 138/68 94 L 08/25/19 08:31 90 18 08/25/19 08:20 80 18 08/25/19 08:05 79 18 98 08/25/19 04:30 80 08/25/19 04:20 96 08/25/19 04:18 80 08/25/19 00:27 81 08/24/19 23:48 98.1 F 85 18 133/78 91 L 08/24/19 23:44 85 20 08/24/19 21:57 78 08/24/19 21:44 78 08/24/19 21:43 78 08/24/19 21:29 78 94 L 08/24/19 16:21 74 08/24/19 16:00 20 08/24/19 15:00 76 20 114/57 98 Intake and Output 08/24/19 08/25/19 08/25/19 22:59 06:59 14:59 Intake Total 240 780 Output Total 375 Balance -135 780 Intake: Oral 240 780 Output: Urine 375 Other: Voiding Method Toilet # Voids 1 2 GENERAL DESCRIPTION: An elderly female up in the chair, no distress. No tachypnea or accessory muscle of respiration use. HEENT: Shows Pallor , no scleral icterus. Oral mucous membrane is dry. No pharyngeal erythema or thrush NECK: Trachea central, no thyromegaly. LUNGS: Unlabored breathing. Decreased intensity present with occasional wheeze no crackle. HEART: S1, S2, regular rate and rhythm. No loud murmur ABDOMEN: Soft, no tenderness , guarding or rigidity, no organomegaly EXTREMITIES: No edema of feet. SKIN: No rash, no masses palpable. NEUROLOGICAL: The patient is awake, alert, oriented x3, mood and affect normal. Results CBC & Chem 7: 08/25/19 06:20 08/25/19 06:20 Labs: Abnormal Lab Results - Last 24 Hours (Table) 08/23/19 08/25/19 08/25/19 Range/Units 22:02 06:20 06:20 WBC 11.0 H (3.8-10.6) k/uL MCHC 30.4 L (31.0-37.0) g/dL RDW 16.0 H (11.5-15.5) % Neutrophils # 9.8 H (1.3-7.7) k/uL Lymphocytes # 0.7 L (1.0-4.8) k/uL BUN 35 H (7-17) mg/dL Creatinine 1.36 H (0.52-1.04) mg/dL Glucose 195 H (74-99) mg/dL Procalcitonin 0.29 H (0.02-0.09) ng/mL Microbiology - Last 24 Hours (Table) 08/23/19 21:58 Urine Culture - Preliminary Urine,Clean Catch Group D Enterococcus Pseudomonas spec Aerococcus urinae 08/23/19 22:38 Blood Culture - Preliminary Blood No Growth after 24 hours Assessment and Plan Assessment: 1- patient presented to hospital with increasing shortness of breath or cough along with purulent sputum and this patient underlying COPD likely descending tube is visualized take a bronchitis underlying pneumonia cannot be entirely excluded for likely bacterial and skin not behaving as well pneumonia in this patient who did not have any lymphopenia and has already shown some clinical improvement on admission by therapy of Rocephin and Zithromax likely represent ing community-acquired pneumonia 2-positive UA with multiple pathogens on urine culture with a question of possible colonization versus contamination patient didn't have any significant urinary symptoms (1) Pneumonitis Current Visit: Yes Status: Acute Code(s): J18.9 - PNEUMONIA, UNSPECIFIED ORGANISM SNOMED Code(s): 624185057 Plan: 1-we will try to obtain sputum for Gram stain and culture 2-Rocephin 1 g and Zithromax to continue We will follow on clinical condition and cultures to further adjust medication if needed Thank you for this consultation will follow this patient with you Time with Patient: Greater than 30
[2019-08-25] MEDS: AZITHROMYCIN 500 MG TAB PO SCH (23:17)
--- NOTE | 2019-08-25 23:54 | PN ---
PROGRESS NOTE DATE OF SERVICE: 08/25/2019 This 79-year-old woman was admitted with COPD exacerbation also bilateral pneumonia is being closely monitored at this time. The patient also had possible interstitial pneumonia. The chest x-ray was reviewed, multiple consultants are following the patient. The patient is on broad-spectrum IV antibiotics. Covid 19 is negative at this time. UA shows some abnormalities as well. The cultures are negative. The urine culture group D Enterococcus, Pseudomonas and Aerococcus. Past medical history reviewed. REVIEW OF SYSTEMS: Cardiovascular: No angina or palpitations. Respiration as mentioned earlier. GI as mentioned earlier. : No dysuria. NERVOUS SYSTEM: As mentioned earlier. CURRENT MEDICATIONS: Reviewed and include: [place] 5 mg, DuoNeb, q.i.d. and p.r.n., Zyloprim, Eliquis, aspirin, Zithromax, Pulmicort, Rocephin, vitamin B12, Cardura, Perforomist, Lasix, Synthroid, Solu-Medrol IV, Ditropan XL and Protonix, Prevacid. PHYSICAL EXAM: Patient is alert and oriented x3. The pulse is 96. Blood pressure 142/60, respiration 18, temperature 97.2, pulse ox 98% on room air. HEENT: Conjunctivae normal. NECK: No JVD. CARDIOVASCULAR: S1, S2 muffled. RESPIRATIONS: Breath sounds diminished in the bases. A few scattered rhonchi and crackles. ABDOMEN: Soft, nontender. LEGS: No edema. No swelling. Nervous system: No focal deficits. LABS: At this time shows WBC 11, hemoglobin 12.3, creatinine is 1.36. ASSESSMENT: 1. Chronic obstructive pulmonary disease exacerbation with bilateral pneumonia possibly interstitial pneumonia possibly gram-negative pneumonia with acute hypoxic respiratory failure. 2. Increased WBC. 3. Possible urinary tract infection with polymicrobial jose including group D Enterococcus, Pseudomonas and Aerococcus urinae. 4. Increased creatinine with acute renal failure with acute on chronic renal failure with chronic kidney disease, possibly stage III baseline. 5. History of gastroesophageal reflux disease. 6. Hypertension. 7. Hyperlipidemia. 8. History of pneumonia. 9. History of lung cancer. 10.History of right upper lobe lobectomy, lung cancer in 2005. 11.Degenerative joint disease. 12.Obesity with body mass of 38.4. RECOMMENDATIONS AND DISCUSSION: I recommend to continue current medications, symptomatic treatment. Continue with antibiotics. Continue the bronchodilators. Infectious Disease and Pulmonary have been consulted. Further recommendations to follow. Prognosis guarded. Discussed with the patient who understands and agrees. MMODL / IJN: [id number] /
[2019-08-26] MEDS: IPRATROPIUM-ALBUTEROL 3 ML NEB INHALATION SCH ×6 (00:10→20:24)
[2019-08-26] MEDS: methylPREDNISolone SOD SUCCI 125 MG/2 ML VIAL IV SCH ×3 (06:04→17:09)
[2019-08-26] MEDS: LEVOTHYROXINE 75 MCG TAB PO SCH (06:04)
[2019-08-26] MEDS: PANTOPRAZOLE 40 MG TABLET PO SCH (06:04)
[2019-08-26] MEDS: FORMOTEROL FUMARATE 20 MCG/2 ML NEBU INHALATION SCH ×2 (07:27→20:24)
[2019-08-26] MEDS: BUDESONIDE 1 MG/2 ML NEBU INHALATION SCH ×2 (07:27→20:24)
[2019-08-26 07:29] LABS: Basophils % (A) 0 %; Eosinophils % (A) 0 %; HCT 40.2 % (34.0-46.0); HGB 12.6 gm/dL (11.4-16.0); Hypochromasia Slight; Lymphocytes # (A) 0.7 k/uL (1.0-4.8); Lymphocytes % (A) 6 %; MCH 28.5 pg (25.0-35.0); MCHC 31.4 g/dL (31.0-37.0); MCV 90.5 fL (80.0-100.0); Mean Platelet Volume 7.7; Monocytes # (A) 0.3 k/uL (0-1.0); Monocytes % (A) 3 %; Neutrophils # (A) 10.4 k/uL (1.3-7.7); Neutrophils % (A) 90 %; Platelet Count 414 k/uL (150-450); RBC 4.44 m/uL (3.80-5.40); RDW 15.8 % (11.5-15.5); WBC 11.5 k/uL (3.8-10.6)
[2019-08-26 07:44] LABS: Calcium 8.9 mg/dL (8.4-10.2); Potassium 4.7 mmol/L (3.5-5.1)
[2019-08-26] MEDS: FUROSEMIDE 10 MG/ML 4 ML VIAL IV SCH (08:33)
[2019-08-26] MEDS: OXYBUTYNIN 10 MG TAB.ER.24 PO SCH (08:33)
[2019-08-26] MEDS: ALLOPURINOL 100 MG TAB PO SCH ×2 (08:33→20:31)
[2019-08-26] MEDS: APIXABAN 5 MG TAB PO SCH ×2 (08:33→20:31)
[2019-08-26 12:07] LABS: Glucose,Whole Blood 223 mg/dL (75-99)
--- NOTE | 2019-08-26 13:04 | P.PN ---
Subjective Progress Note Date: 08/26/19 Principal diagnosis: Community-acquired pneumonia of the right lung This is a very pleasant 79-year-old female patient who follows with Dr. Redd as her primary care provider. She has a history of lung cancer with previous right upper lobe ectomy in 2006, hyperlipidemia, GERD, hypertension. Lifelong nonsmoker. She was recently found to have a blood clot in a blood vessel in the left neck and was placed on Eliquis. During this workup some pulmonary nodules were noted. She follows with Dr. Collier in our office for COPD. She is maintained on Symbicort, Incruse, albuterol. She was just there 08/17/2019. At that time she had recently had a CAT scan of the chest that Pepper Lind that mentioned possible lung nodules. He had set her up for a PET scan next week. She presented here to the emergency room yesterday with complaints of increasing shortness of breath, fever, greenish yellow sputum production. Chest x-ray shows possible pulmonary artery hypertension, interstitial lung disease, atelectasis or scarring. She was initiated on DuoNeb inhalations, IV Solu- Medrol, antibiotics in the form of ceftriaxone and azithromycin. She is seen today in consultation on the regular medical floor. She is awake and alert in no acute distress. She states she is feeling quite a bit better today as compared to yesterday. She is maintaining O2 saturations in the low 90s on 4 L/m per nasal cannula. She's afebrile. Hemodynamically stable. Urine culture pending. White count 15.3. Hemoglobin 13.5. Sodium 136. Potassium 4.8. Creatinine 1.48. Troponin negative. ProBNP 1340. Isaacs virus screen pending. The patient is seen today 08/25/2019 in follow-up on the regular medical floor. She is currently sitting up in a chair at the bedside. Awake and alert in no acute distress. She continues with use nonproductive cough. No fever chills. Maintain O2 saturations in the 90s on 2 L/m per nasal cannula. She's afebrile. Hemodynamically stable. Urine culture positive for group D enterococcus, Pseudomonas species, Aerococcus urinae. Blood culture reveals no growth to date. White count 11.0. Hemoglobin 12.3. Sodium 139. Potassium 4.5. Creatin ine 1.36. Isaacs virus not detected. Remains on ceftriaxone and azithromycin along with IV Solu-Medrol and bronchodilators. Anticoagulated with Eliquis. The patient is seen today August 26, 2019 in follow-up on the regular medical floor. She is awake and alert in no acute distress. Sitting up in a chair at the bedside. No worsening shortness of breath, cough or congestion. No fever chills or night sweats. Maintaining O2 saturation in the 90s on 2 L/m per nasal cannula. She remains afebrile. Hemodynamically stable. Urine culture positive for group D enterococcus, gram-negative bacilli, Aerococcus urinae. White count 11.5. Hemoglobin 12.6. Creatinine 1.34. Sodium 137. Potassium 4.7. Glucose 228. Objective - Vital Signs Vital signs: Vital Signs Temp 98 F 08/26/19 07:00 Pulse 90 08/26/19 11:07 Resp 18 08/26/19 08:00 BP 145/73 08/26/19 07:00 Pulse Ox 93 L 08/26/19 07:00 Intake & Output 08/25/19 08/26/19 08/26/19 18:59 06:59 18:59 Intake Total 1370 440 280 Output Total 350 Balance 1370 440 -70 Intake: IV 50 cefTRIAXone 1 gm In 50 Sodium Chloride 0.9% 50 ml @ 100 mls/hr IVPB Q24H [facility] Rx#:[id number] Oral 1370 440 230 Output: Urine 350 Other: Voiding Method Toilet Toilet # Voids 2 2 1 - Exam GENERAL EXAM: Alert, active, very pleasant 79-year-old female patient, on 2 L nasal cannula comfortable in no apparent distress. HEAD: Normocephalic. EYES: Normal reaction of pupils, equal size. NOSE: Clear with pink turbinates. THROAT: No erythema or exudates. NECK: No masses, no JVD. CHEST: No chest wall deformity. LUNGS: Equal air entry with crackles in the posterior bases CVS: S1 and S2 normal with no audible murmur, regular rhythm. ABDOMEN: No hepatosplenomegaly, normal bowel sounds, no guarding or rigidity. SPINE: No scoliosis or deformity SKIN: No rashes CENTRAL NERVOUS SYSTEM: No focal deficits, tone is normal in all 4 extremities. EXTREMITIES: There is no peripheral edema. No clubbing, no cyanosis. Peripheral pulses are intact. - Labs CBC & Chem 7: 08/26/19 07:04 08/26/19 07:04 Labs: Abnormal Lab Results - Last 24 Hours (Table) 08/26/19 08/26/19 08/26/19 Range/Units 07:04 07:04 11:56 WBC 11.5 H (3.8-10.6) k/uL RDW 15.8 H (11.5-15.5) % Neutrophils # 10.4 H (1.3-7.7) k/uL Lymphocytes # 0.7 L (1.0-4.8) k/uL BUN 42 H (7-17) mg/dL Creatinine 1.34 H (0.52-1.04) mg/dL Glucose 228 H (74-99) mg/dL POC Glucose (mg/dL) 223 H (75-99) mg/dL Microbiology - Last 24 Hours (Table) 08/23/19 21:58 Urine Culture - Preliminary Urine,Clean Catch Group D Enterococcus Gram Neg Bacilli Aerococcus urinae 08/23/19 22:38 Blood Culture - Preliminary Blood No Growth after 48 hours Assessment and Plan Assessment: 1 Acute on chronic obstructive pulmonary disease, complicated by purulent tracheobronchitis. Computed tomography scan of the chest reveals patchy peripheral infiltrates and ground glass as well as scattered nodular areas. Some ground glass also extends along the bronchovascular bundles. Differential considerations include atypical pneumonias and interstitial pneumonitis. Covid screen negative. There is also enlarged mediastinal lymph nodes measuring up to 1.3 cm. 2 Acute hypoxic respiratory failure secondary to above 3 History of lung cancer status post right upper lobectomy and recent findings of pulmonary nodules on CAT scan, PET scan pending for next week. 4 Recent diagnosis of a blood clot in the blood vessel of the left neck, currently on Eliquis 5 Hyperlipidemia 6 Hypertension 7 Osteoarthritis with previous joint replacements 8 Acute kidney injury, creatinine 1.34. Plan: The patient was seen and evaluated by Dr. Briceno Repeat chest x-ray in a.m. Continue current treatment plan Titrate down the FiO2 as tolerated Probable discharge in the a.m. We will continue to follow and make further recommendations based on her clinical status. I, the cosigning physician, performed a history & physical examination of the patient. Lungs sounds with crackles in bilateral posterior bases, diminished. Maintaining good O2 saturations in the 90s on 2 L/m per nasal cannula. I discussed the assessment and plan of care with my nurse practitioner, Kristi Rodas. I attest to the above note as dictated by her.
[2019-08-26] MEDS: INSULIN ASPART (NovoLOG) 100 UNIT/ML VIAL SQ SCH ×2 (17:08→20:31)
[2019-08-26 17:18] LABS: Glucose,Whole Blood 215 mg/dL (75-99)
[2019-08-26 20:16] LABS: Glucose,Whole Blood 179 mg/dL (75-99)
[2019-08-26] MEDS: ASPIRIN 81 MG PO SCH (20:30)
[2019-08-26] MEDS: PRAVASTATIN SODIUM 40 MG TAB PO SCH (20:30)
[2019-08-26] MEDS: MONTELUKAST 10 MG TAB PO SCH (20:31)
[2019-08-26] MEDS: DOXAZOSIN 4 MG TAB PO SCH (20:31)
[2019-08-26] MEDS ORDERED: CHOLECALCIFEROL 1,000 UNIT TAB PO SCH (21:00)
[2019-08-26] MEDS ORDERED: CYANOCOBALAMIN 500 MCG TAB PO SCH (21:00)
[2019-08-26] MEDS ORDERED: VIT A,C & E-LUTEIN-MINERALS 1 EACH TAB PO SCH (21:00)
[2019-08-26] MEDS: AZITHROMYCIN 500 MG TAB PO SCH (23:16)
[2019-08-26] MEDS: methylPREDNISolone SOD SUCCI 40 MG/ML 1 ML VIAL IV SCH (23:16)
[2019-08-27] MEDS: IPRATROPIUM-ALBUTEROL 3 ML NEB INHALATION SCH ×5 (00:38→16:21)
--- NOTE | 2019-08-27 04:45 | PN ---
PROGRESS NOTE DATE OF SERVICE: 08/26/2019 This 79-year-old woman who was admitted with COPD acute exacerbation also had possible interstitial pneumonia. The patient has been closely monitored. No chest pain. No palpitations. No fever. Patient on broad spectrum IV antibiotics. PHYSICAL EXAMINATION: On exam, alert and oriented x3. Pulse is 69, blood pressure 143/90, respiration 18, temperature 98.4, pulse ox 93% on 2 L. HEENT: Conjunctivae normal. NECK: No jugular venous distention. CARDIOVASCULAR: S1, S2 muffled. RESPIRATORY: Breath sounds diminished at the bases. A few scattered rhonchi. ABDOMEN: Soft, nontender. NERVOUS SYSTEM: No focal deficits. LABS: WBC 11.5 and creatinine is 1.34. Accu-Cheks noted. ASSESSMENT: 1. Chronic obstructive pulmonary disease acute exacerbation with bilateral pneumonia, possibly interstitial pneumonia possibly gram-negative pneumonia with acute hypoxic respiratory failure. 2. Increased WBC. 3. Possible urinary tract infection with polymicrobial jose including group D Enterococcus, Pseudomonas, Aerococcus in the urine. 4. Increased creatinine with acute renal failure with acute on chronic renal failure with chronic kidney disease possibly stage 3 baseline. 5. History of gastroesophageal reflux disease. 6. Hypertension. 7. Hyperlipidemia. 8. History of pneumonia. 9. History of lung cancer. 10.History of right upper lobectomy, lung cancer in 2005. 11.Degenerative joint disease. 12.Obesity with body mass index of 38.4. RECOMMENDATIONS AND DISCUSSION: This 79-year-old woman presented with multiple complex medical issues, we will monitor the patient closely. Continue the current medications, continue symptomatic treatment. Otherwise at this time I recommend continue the antibiotics. Continue with bronchodilators. Closely follow with Pulmonary. Cut down the IV steroids. Repeat chest x-ray has been ordered for the morning. Guarded prognosis. Further recommendations to follow. MMODL / IJN: [id number] /
[2019-08-27 06:05] LABS: Glucose,Whole Blood 156 mg/dL (75-99)
[2019-08-27] MEDS: PANTOPRAZOLE 40 MG TABLET PO SCH (06:28)
[2019-08-27] MEDS: LEVOTHYROXINE 75 MCG TAB PO SCH (06:29)
[2019-08-27] MEDS: INSULIN ASPART (NovoLOG) 100 UNIT/ML VIAL SQ SCH ×2 (06:29→12:38)
--- NOTE | 2019-08-27 07:01 | PN ---
PROGRESS NOTE DATE OF SERVICE: 08/26/2019 REASON FOR FOLLOWUP: Pneumonia. INTERVAL HISTORY: The patient is currently afebrile. The patient is breathing comfortably. The patient denies having any chest pain or shortness of breath. Cough has decreased in intensity with occasional sputum production. No hemoptysis. No nausea, no vomiting. No abdominal pain. No diarrhea. PHYSICAL EXAMINATION: Blood pressure 143/90 with a pulse of 92, temperature 98.4. She is 93% on 2 L nasal cannula. General description is an elderly female up in the chair in no distress. RESPIRATORY SYSTEM: Unlabored breathing, decreased intensity of breath sounds. No wheeze. HEART: S1, S2. Regular rate and rhythm. ABDOMEN: Soft, no tenderness. LABS: Hemoglobin is 12.6, white count 11.5, BUN of 42, creatinine 1.34. Urine with multiple pathogen. DIAGNOSTIC IMPRESSION AND PLAN: 1. Patient admitted to the hospital with fever, shortness of breath, cough with sputum production, likely representing a tracheobronchitis/early pneumonia. Sputum has been obtained. Culture will be followed. Continue Rocephin and Zithromax. 2. Patient with positive urine culture with multiple pathogen. Patient with no urinary symptoms likely contamination versus colonization. No specific treatment for the same. MMODL / IJN: [id number] /
[2019-08-27 07:15] LABS: Basophils # (A) 0.1 k/uL (0-0.2); Basophils % (A) 0 %; Eosinophils # (A) 0.1 k/uL (0-0.7); Eosinophils % (A) 1 %; HGB 13.6 gm/dL (11.4-16.0); Hypochromasia Slight; Lymphocytes # (A) 0.8 k/uL (1.0-4.8); Lymphocytes % (A) 6 %; MCH 28.7 pg (25.0-35.0); MCHC 31.6 g/dL (31.0-37.0); MCV 90.7 fL (80.0-100.0); Mean Platelet Volume 8.2; Monocytes # (A) 0.5 k/uL (0-1.0); Monocytes % (A) 4 %; Neutrophils # (A) 11.6 k/uL (1.3-7.7); Neutrophils % (A) 89 %; Platelet Count 464 k/uL (150-450); RBC 4.74 m/uL (3.80-5.40); RDW 15.8 % (11.5-15.5); WBC 13.1 k/uL (3.8-10.6)
[2019-08-27 07:26] LABS: Potassium 4.9 mmol/L (3.5-5.1)
--- NOTE | 2019-08-27 07:37 | XR ---
EXAMINATION TYPE: XR chest 1V portable DATE OF EXAM: 08/27/2019 HISTORY: Shortness of breath. COMPARISON: 08/25/2019 TECHNIQUE: Single view of the chest is submitted. FINDINGS: Demonstrated are scattered senescent parenchymal change. Improved aeration right lower lobe. The heart is stable. Hilar and mediastinal structures are within normal limits. Degenerative changes are seen of the dorsal spine. IMPRESSION: 1. Improved aeration right lower lobe.
[2019-08-27] MEDS: FORMOTEROL FUMARATE 20 MCG/2 ML NEBU INHALATION SCH (07:59)
[2019-08-27] MEDS: BUDESONIDE 1 MG/2 ML NEBU INHALATION SCH (07:59)
[2019-08-27] MEDS: FUROSEMIDE 10 MG/ML 4 ML VIAL IV SCH (08:12)
[2019-08-27] MEDS: methylPREDNISolone SOD SUCCI 40 MG/ML 1 ML VIAL IV SCH (08:12)
[2019-08-27] MEDS: OXYBUTYNIN 10 MG TAB.ER.24 PO SCH (08:12)
[2019-08-27] MEDS: APIXABAN 5 MG TAB PO SCH (08:12)
[2019-08-27] MEDS: ALLOPURINOL 100 MG TAB PO SCH (08:12)
[2019-08-27 09:25] VITALS: BP 128/83; RESP 20; TEMP 97.8
[2019-08-27 11:45] VITALS: PULSE 80
[2019-08-27 12:00] LABS: Glucose,Whole Blood 171 mg/dL (75-99)
--- NOTE | 2019-08-27 14:31 | PN ---
PROGRESS NOTE DATE OF SERVICE: 08/27/2019 REASON FOR FOLLOWUP: Tracheobronchitis/pneumonia, community-acquired. INTERVAL HISTORY: Patient is currently afebrile, patient is breathing more comfortably. Patient denies having any chest pain. Cough has decreased in intensity, not bringing up any sputum. No nausea, vomiting. No abdominal pain, no diarrhea. PHYSICAL EXAMINATION: Blood pressure 120/83 with a pulse of 81, temperature is 97.8. She is 97% on 2 L nasal cannula. General description is an elderly female up in the chair, in no distress. RESPIRATORY SYSTEM: Unlabored breathing, decreased breath sounds at the base, no wheeze. HEART: S1, S2. Regular rate and rhythm. ABDOMEN: Soft, nontender. LABS: Hemoglobin is 13.8, white count 13.9, BUN of 45, creatinine 1.30. Urine with multiple pathogen. Sputum cultures currently pending. DIAGNOSTIC IMPRESSION AND PLAN: Patient admitted to the hospital with shortness of breath. Cough, fevers, concern for tracheobronchitis/pneumonia community-acquired. The patient has shown overall clinical improvement on Rocephin and Zithromax, plan to finish therapy with oral Ceftin as the patient seems to be insisting on going home. Chest x-ray this morning did show improved aeration of the right lower lobe. MMODL / IJN: [id number] /
--- NOTE | 2019-08-27 14:37 | P.PN ---
Subjective Progress Note Date: 08/27/19 Principal diagnosis: Community-acquired pneumonia of the right lung This is a very pleasant 79-year-old female patient who follows with Dr. Redd as her primary care provider. She has a history of lung cancer with previous right upper lobe ectomy in 2006, hyperlipidemia, GERD, hypertension. Lifelong nonsmoker. She was recently found to have a blood clot in a blood vessel in the left neck and was placed on Eliquis. During this workup some pulmonary nodules were noted. She follows with Dr. Collier in our office for COPD. She is maintained on Symbicort, Incruse, albuterol. She was just there 08/17/2019. At that time she had recently had a CAT scan of the chest that Pepper Lind that mentioned possible lung nodules. He had set her up for a PET scan next week. She presented here to the emergency room yesterday with complaints of increasing shortness of breath, fever, greenish yellow sputum production. Chest x-ray shows possible pulmonary artery hypertension, interstitial lung disease, atelectasis or scarring. She was initiated on DuoNeb inhalations, IV Solu- Medrol, antibiotics in the form of ceftriaxone and azithromycin. She is seen today in consultation on the regular medical floor. She is awake and alert in no acute distress. She states she is feeling quite a bit better today as compared to yesterday. She is maintaining O2 saturations in the low 90s on 4 L/m per nasal cannula. She's afebrile. Hemodynamically stable. Urine culture pending. White count 15.3. Hemoglobin 13.5. Sodium 136. Potassium 4.8. Creatinine 1.48. Troponin negative. ProBNP 1340. Isaacs virus screen pending. The patient is seen today 08/25/2019 in follow-up on the regular medical floor. She is currently sitting up in a chair at the bedside. Awake and alert in no acute distress. She continues with use nonproductive cough. No fever chills. Maintain O2 saturations in the 90s on 2 L/m per nasal cannula. She's afebrile. Hemodynamically stable. Urine culture positive for group D enterococcus, Pseudomonas species, Aerococcus urinae. Blood culture reveals no growth to date. White count 11.0. Hemoglobin 12.3. Sodium 139. Potassium 4.5. Creatin ine 1.36. Isaacs virus not detected. Remains on ceftriaxone and azithromycin along with IV Solu-Medrol and bronchodilators. Anticoagulated with Eliquis. The patient is seen today August 26, 2019 in follow-up on the regular medical floor. She is awake and alert in no acute distress. Sitting up in a chair at the bedside. No worsening shortness of breath, cough or congestion. No fever chills or night sweats. Maintaining O2 saturation in the 90s on 2 L/m per nasal cannula. She remains afebrile. Hemodynamically stable. Urine culture positive for group D enterococcus, gram-negative bacilli, Aerococcus urinae. White count 11.5. Hemoglobin 12.6. Creatinine 1.34. Sodium 137. Potassium 4.7. Glucose 228. On 08/27/2019 patient seen in follow-up on selective care unit, is awake and al ert, she is currently on 2 L of oxygen, pulse ox of 97%, hemodynamically stable, afebrile, respirations and nonlabored. Today's chest x-ray shows improved aeration of the right lower lobe. Patient is on a combination of azithromycin and Rocephin, no fever or chills. Urine culture showed Enterococcus faecalis, pseudomonas aeruginosa, and Aerococcus urinary, sputum culture and blood cultures have shown no growth so far. Gram stain of the sputum showed few PMNs, few gram-positive cocci. Final culture is pending. Objective - Vital Signs Vital signs: Vital Signs Temp 97.8 F 08/27/19 08:00 Pulse 80 08/27/19 11:44 Resp 20 08/27/19 08:00 BP 128/83 08/27/19 08:00 Pulse Ox 97 08/27/19 08:00 Intake & Output 08/26/19 08/27/19 08/27/19 18:59 06:59 18:59 Intake Total 502 960 Output Total 1050 180 Balance -548 -180 960 Intake: IV 50 cefTRIAXone 1 gm In 50 Sodium Chloride 0.9% 50 ml @ 100 mls/hr IVPB Q24H [facility] Rx#:[id number] Oral 452 960 Output: Urine 1050 180 Other: Voiding Method Toilet Toilet # Voids 1 1 1 # Bowel Movements 0 - Exam GENERAL EXAM: Alert, very pleasant, 79-year-old white female, on 2 L of oxygen pulse ox of 97% comfortable in no apparent distress. HEAD: Normocephalic/atraumatic. EYES: Normal reaction of pupils, equal size. Conjunctiva pink, sclera white. NOSE: Clear with pink turbinates. THROAT: No erythema or exudates. NECK: No masses, no JVD, no thyroid enlargement, no adenopathy. CHEST: No chest wall deformity. Symmetrical expansion. LUNGS: Equal air entry with no crackles, wheeze, rhonchi or dullness. CVS: Regular rate and rhythm, normal S1 and S2, no gallops, no murmurs, no rubs ABDOMEN: Soft, nontender. No hepatosplenomegaly, normal bowel sounds, no guarding or rigidity. EXTREMITIES: No clubbing, no edema, no cyanosis, 2+ pulses and upper and lower extremities. MUSCULOSKELETAL: Muscle strength and tone normal. SPINE: No scoliosis or deformity SKIN: No rashes CENTRAL NERVOUS SYSTEM: Alert and oriented -3. No focal deficits, tone is normal in all 4 extremities. PSYCHIATRIC: Alert and oriented -3. Appropriate affect. Intact judgment and insight. - Labs CBC & Chem 7: 08/27/19 06:32 08/27/19 06:32 Labs: Abnormal Lab Results - Last 24 Hours (Table) 08/26/19 08/26/19 08/27/19 Range/Units 17:04 20:15 06:04 WBC (3.8-10.6) k/uL RDW (11.5-15.5) % Plt Count (150-450) k/uL Neutrophils # (1.3-7.7) k/uL Lymphocytes # (1.0-4.8) k/uL BUN (7-17) mg/dL Creatinine (0.52-1.04) mg/dL Glucose (74-99) mg/dL POC Glucose (mg/dL) 215 H 179 H 156 H (75-99) mg/dL 08/27/19 08/27/19 08/27/19 Range/Units 06:32 06:32 11:57 WBC 13.1 H (3.8-10.6) k/uL RDW 15.8 H (11.5-15.5) % Plt Count 464 H (150-450) k/uL Neutrophils # 11.6 H (1.3-7.7) k/uL Lymphocytes # 0.8 L (1.0-4.8) k/uL BUN 45 H (7-17) mg/dL Creatinine 1.30 H (0.52-1.04) mg/dL Glucose 159 H (74-99) mg/dL POC Glucose (mg/dL) 171 H (75-99) mg/dL Microbiology - Last 24 Hours (Table) 08/23/19 21:58 Urine Culture - Final Urine,Clean Catch Enterococcus faecalis Pseudomonas aeruginosa Aerococcus urinae 08/26/19 16:30 Gram Stain - Preliminary Sputum Sputum Culture - Preliminary 08/23/19 22:38 Blood Culture - Preliminary Blood No Growth after 72 hours Assessment and Plan Plan: Assessment: 1 Acute on chronic obstructive pulmonary disease, complicated by purulent trac heobronchitis. Computed tomography scan of the chest reveals patchy peripheral infiltrates and ground glass as well as scattered nodular areas. Some ground glass also extends along the bronchovascular bundles. Differential considerations include atypical pneumonias and interstitial pneumonitis. Covid screen negative. There is also enlarged mediastinal lymph nodes measuring up to 1.3 cm. 2 Acute hypoxic respiratory failure secondary to above 3 History of lung cancer status post right upper lobectomy and recent findings of pulmonary nodules on CAT scan, PET scan pending for next week. 4 Recent diagnosis of a blood clot in the blood vessel of the left neck, currently on Eliquis 5 Hyperlipidemia 6 Hypertension 7 Osteoarthritis with previous joint replacements 8 Acute kidney injury, creatinine 1.34. 9 acute urinary tract infection with cultures positive for Enterococcus faecalis, pseudomonas aeruginosa, Aerococcus urinae Plan: Urine cultures have been noted, which antibiotic coverage to Levaquin, discontinue Zithromax and Rocephin, his chest x-ray shows improved aeration of the right lower lobe, clinical patient remains stable, patient could be considered for discharge home today. Needs outpatient follow-up in the office with Dr. Lewis in 7-10 days. No acute events overnight. I performed a history & physical examination of the patient and discussed their management with my nurse practitioner, Sue Haddad. I reviewed the nurse practitioner's note and agree with the documented findings and plan of care. Lung sounds are positive for diminished breath sounds. The findings and the impression was discussed with the patient. I attest to the documentation by the nurse practitioner. Time with Patient: Less than 30
--- NOTE | 2019-08-27 23:23 | DS ---
DISCHARGE SUMMARY DATE OF SERVICE: 08/27/2019 FINAL DIAGNOSES: 1. Chronic obstructive pulmonary disease exacerbation, acute exacerbation, with bilateral pneumonia, possibly interstitial pneumonia, possibly Gram-negative pneumonia, with acute hypoxic respiratory failure. 2. COVID-19 ruled out. 3. Increased white count. 4. Possible acute urinary tract infection with polymicrobial jose, including group B Enterococcus, Pseudomonas and Aerococcus in the urine on presentation. 5. Increased creatinine with acute renal failure with acute on chronic renal failure with chronic kidney disease, possibly stage 3 baseline. 6. History of gastroesophageal reflux disease. 7. Hypertension. 8. Hyperlipidemia. 9. History of pneumonia. 10.History of lung cancer. 11.History of right upper lobectomy for lung cancer in 2005. 12.History of degenerative joint disease. 13.Obesity with body mass index of 38.4. DISCHARGE DISPOSITION: The patient will be discharged in stable condition with guarded prognosis. Discharge cleared by Pulmonary. HISTORY OF PRESENT ILLNESS: This 79-year-old woman with a past medical history of multiple medical problems was admitted with COPD, acute exacerbation, as well as bilateral pneumonia. The patient also had multiple other medical problems, as mentioned above. Patient was treated with antibiotics and bronchodilators and steroids. Patient improved significantly. Dr. Brcieno and Dr. Collier saw the patient and cleared the patient for discharge. The most recent chest x-ray was evaluated and shows significant clearing, and the patient was recommended outpatient followup. Total time taken 35 minutes. On exam, vitals are stable. CARDIOVASCULAR SYSTEM: S1, S2 muffled. ABDOMEN: Soft. RESPIRATORY SYSTEM: A few rhonchi. NERVOUS SYSTEM: No focal deficit. DISCHARGE ADVICE AND MEDICATIONS: 1. Diet is cardiac. 2. Activity limited until followup. 3. Follow up with Dr. Redd in 1-2 days. 4. Follow up with Dr. Collier as recommended. 5. Cardura 4 mg at bedtime. 6. Detrol LA 4 mg p.o. daily. 7. Ecotrin 81 mg at bedtime. 8. Eliquis 5 mg p.o. b.i.d. 9. Incruse Ellipta 1 b.i.d. 10.Pravachol 40 mg at bedtime. 11.Vitamin E, zinc, copper, lutein daily. 12.Prilosec 20 mg p.o. daily. 13.Singulair 10 mg at bedtime. 14.Symbicort 2 puffs b.i.d. 15.Synthroid 150 mcg p.o. daily. 16.Albuterol p.r.n. 17.Vitamin B12 1000 mcg p.o. daily. 18.Vitamin D3 1000 daily. 19.Zyloprim 100 mg p.o. b.i.d. 20.Ceftin 500 mg p.o. b.i.d. for 5 days. 21.DuoNeb q.i.d. and p.r.n. 22.Lasix 40 mg p.o. daily. 23.Prednisone taper: 40 mg daily for 3 days, 30 for 3 days, 20 for 3 days, 10 for 3 days. 24.Zithromax 500 mg p.o. daily for 5 days. Once again, the patient will be discharged in stable condition with guarded prognosis. MMREBECA / RAMA: [id number] /
[2019-08-28] MEDS ORDERED: LEVOFLOXACIN 750 MG TAB PO SCH (09:00)
== END 2019-08-27 17:28 | disposition home or self-care (01) | DRG 177 ==
LOC: EC 21:12 → 4SSUR 23:24 → 3SCARD 23:37
PROVIDERS: ADMIT Internal Medicine; ATTEND Internal Medicine
DX: J15.6 Pneumonia due to other Gram-negative bacteria (principal); J96.01 Acute respiratory failure with hypoxia; N17.9 Acute kidney failure, unspecified; E87.1 Hypo-osmolality and hyponatremia; J84.9 Interstitial pulmonary disease, unspecified; J44.0 Chronic obstructive pulmonary disease with (acute) lower respiratory infection; J44.1 Chronic obstructive pulmonary disease with (acute) exacerbation; N39.0 Urinary tract infection, site not specified; Z20.828 Contact with and (suspected) exposure to other viral communicable diseases; N18.3 Chronic kidney disease, stage 3 (moderate); I12.9 Hypertensive chronic kidney disease with stage 1 through stage 4 chronic kidney disease, or unspecified chronic kidney disease; E78.5 Hyperlipidemia, unspecified; K21.9 Gastro-esophageal reflux disease without esophagitis; M19.90 Unspecified osteoarthritis, unspecified site; E66.9 Obesity, unspecified; B95.2 Enterococcus as the cause of diseases classified elsewhere; R59.0 Localized enlarged lymph nodes; R91.8 Other nonspecific abnormal finding of lung field; B96.5 Pseudomonas (aeruginosa) (mallei) (pseudomallei) as the cause of diseases classified elsewhere; Z68.38 Body mass index [BMI] 38.0-38.9, adult; Z79.899 Other long term (current) drug therapy; Z79.01 Long term (current) use of anticoagulants; Z79.51 Long term (current) use of inhaled steroids; Z79.890 Hormone replacement therapy; Z85.118 Personal history of other malignant neoplasm of bronchus and lung; Z87.01 Personal history of pneumonia (recurrent); Z90.2 Acquired absence of lung [part of]; Z96.653 Presence of artificial knee joint, bilateral; Z96.611 Presence of right artificial shoulder joint; Z86.718 Personal history of other venous thrombosis and embolism; Z88.5 Allergy status to narcotic agent; Z88.8 Allergy status to other drugs, medicaments and biological substances
CPT/HCPCS: 36415; 71045; 71046; 71250; 80048; 80053; 81001; 82550; 83605; 83735; 83880; 84145; 84484; 85025; 85610; 85730; 87040; 87070; 87077; 87086; 87186; 87205; 93005; 94640; 94760; 96361; 96374; 96375; 99285

== ENCOUNTER → 2019-08-31 | Outpatient (CLI) | payer MEDICARE ==
--- NOTE | 2019-09-02 09:45 | PE ---
Nuclear medicine PET/CT HISTORY: Lung nodule, lung cancer, subsequent Patient received 11.2 mCi F-18 FDG intravenously in delayed scanning was performed from skull base to the mid thighs. An attenuation correction, localization CT scan was also performed. Correlation to chest CT 08/24/2019 Neck and chest: There is no evident cervical or supraclavicular adenopathy. No mediastinal, axillary, or hilar adenopathy. Left upper lobe lung nodule does show some metabolic uptake. Additional nodules seen at the lung bases may be due to small to show hypermetabolic uptake. There is no pleural or per icardial effusion. Small prevascular node is present. Retrocaval pretracheal node may be enlarged how ever no definite uptake identified. There are coronary calcifications present. Prominence of pulmonar y artery may be indicative of pulmonary artery hypertension. Ascending aorta is aneurysmal. Proximal descending aorta is also aneurysmal. ABDOMEN: The adrenal glands show no mass. Postop changes are noted to the lumbar spine causing streak artifact. Dependent hyperdensity within the gallbladder consistent with stone. There is no retroperi toneal adenopathy or ascites. No suspicious uptake. Abdominal aortic aneurysm is present in the infra renal location measuring 4.2 cm. Nonobstructive renal calculi present within the bilateral kidneys, s izable calcification present in the right renal pelvis. Bones show no suspicious uptake. Degenerative disc changes and facet arthropathy, spinal curvature no jose ramon in the lumbar spine. IMPRESSION: Suspicious uptake left upper lobe lung mass. Bilateral lung nodules. Nephrolithiasis, cho lelithiasis. Aortic aneurysm. Coronary artery disease. Possible pulmonary artery hypertension. Additi onal findings above.
== END | disposition home or self-care (01) ==
LOC: RADPETMAIN 09:52
PROVIDERS: ATTEND Internal Medicine Critical Care Medicine
DX: R91.8 Other nonspecific abnormal finding of lung field (principal); N20.0 Calculus of kidney; K80.20 Calculus of gallbladder without cholecystitis without obstruction; I71.4 Abdominal aortic aneurysm, without rupture; I25.10 Atherosclerotic heart disease of native coronary artery without angina pectoris; I71.2 Thoracic aortic aneurysm, without rupture; Z98.890 Other specified postprocedural states; M51.36 Other intervertebral disc degeneration, lumbar region; M43.8X6 Other specified deforming dorsopathies, lumbar region; M47.816 Spondylosis without myelopathy or radiculopathy, lumbar region
CPT/HCPCS: 78815; A9552

== ENCOUNTER → 2019-11-27 | Outpatient (CLI) | payer MEDICARE ==
--- NOTE | 2019-11-27 15:41 | CT ---
EXAMINATION TYPE: CT chest w con DATE OF EXAM: 11/27/2019 COMPARISON: 08/24/2019 HISTORY: Lung cancer. CT DLP: 535.6 mGycm, Automated exposure control for dose reduction was used. CONTRAST: Performed injected with 80 mL of Isovue M300. TECHNIQUE: Axial images were obtained at 5 mm thick sections. Reconstructed images are reviewed on [employer] computer in the coronal plane. FINDINGS: Thyroid is not well visualized. There is a 0.8 cm transverse dimension nodule within the lateral left upper lung field. This is stabl e from comparison. Left perihilar infiltrate is diminished over the interval. No enlarged mediastinal or hilar adenopathy is evident. The ascending aorta diameter at the level o f the main pulmonary artery is 4.5 cm. The main pulmonary artery diameter at the bifurcation is 4.9 cm. Correlate for pulmonary hypertension. Coronary artery calcification is present. Limited CT sections are obtained through the upper abdomen. Abdomen is essentially unremarkable. IMPRESSIONS: 1. CT chest is stable from August 2019. 2. Aneurysmal dilatation of the descending thoracic aorta measuring 4.5 cm.
== END | disposition home or self-care (01) ==
LOC: RADCTMAIN 11:41
PROVIDERS: ATTEND Internal Medicine Hematology & Oncology
DX: Z03.89 Encounter for observation for other suspected diseases and conditions ruled out (principal); C34.11 Malignant neoplasm of upper lobe, right bronchus or lung; I71.2 Thoracic aortic aneurysm, without rupture; Z88.5 Allergy status to narcotic agent; Z88.8 Allergy status to other drugs, medicaments and biological substances
CPT/HCPCS: 82565; 84520; 71260; 36415; Q9967

== ENCOUNTER → 2020-03-04 | Outpatient (CLI) | payer MEDICARE ==
--- NOTE | 2020-03-04 14:35 | CT ---
EXAMINATION TYPE: CT chest wo con DATE OF EXAM: 03/04/2020 COMPARISON: 11/27/2019 HISTORY: Lung CA CT DLP: 750 mGycm. Automated Exposure Control for Dose Reduction was Utilized. TECHNIQUE: CT scan of the thorax is performed without IV contrast. FINDINGS: LUNGS: Diffuse emphysematous changes are noted. There is a spiculated nodule measuring 1.4 x 1.4 cm and previously measuring 0.8 cm in the left upper lobe. Apical pleural thickening is seen. Subpleural density is seen in the anterior segment of the right up per lobe is stable and has a linear configuration therefore likely inflammatory. There is an addition al nodule within the medial segment of the right lower lobe which is stable in appearance measuring 7 mm. Lateral right lower lobe nodule also appears stable measuring 5 mm. No pleural effusion or conso lidation and minimal pneumonia. Subsegmental areas of consolidation are most typical of scarring or a telectasis.. MEDIASTINUM: Lack of IV contrast is noted to limit evaluation for mediastinal and especially hilar ad enopathy. There is shotty mediastinal lymphadenopathy with a lymph node in the pretracheal space whic h measures pathologic measuring a short axis of 1.1 cm and previously measuring 1 cm.. Ascending aort a measures 4.5 cm compatible with mild aneurysmal dilation. Dense coronary artery calcification noted . Pulmonary artery measures 4.9 cm correlate for pulmonary arterial hypertension. OTHER: Postsurgical change right shoulder. Evidence of previous vertebroplasty and postsurgical roman e involving the vertebral column multilevel severe degenerative changes hypertrophic spurring. Gallst one noted.. IMPRESSION: 1. There is been interval increase in size of a spiculated mass within the left upper lobe now measur ing 1.4 x 1.4 cm and previously measuring 0.8 x 1.1 cm. There are 2 additional pulmonary nodules are stable. There are 3 COPD reports stable ascending aortic aneurysm measuring approximately 4.5 cm
== END | disposition home or self-care (01) ==
LOC: RADCTMAIN 13:21
PROVIDERS: ATTEND Internal Medicine Hematology & Oncology
DX: Z03.89 Encounter for observation for other suspected diseases and conditions ruled out (principal); C34.11 Malignant neoplasm of upper lobe, right bronchus or lung; R91.8 Other nonspecific abnormal finding of lung field; J44.9 Chronic obstructive pulmonary disease, unspecified; I71.2 Thoracic aortic aneurysm, without rupture; Z88.5 Allergy status to narcotic agent; Z88.8 Allergy status to other drugs, medicaments and biological substances
CPT/HCPCS: 71250

== ENCOUNTER → 2020-03-21 | Outpatient (CLI) | payer MEDICARE ==
--- NOTE | 2020-03-22 10:59 | PE ---
Nuclear medicine PET/CT HISTORY: Lung carcinoma, subsequent, R 91.1 Patient received 11.9 mCi F-18 FDG intravenously in delayed scanning was performed from the skull bas e to the mid thighs. Localization and attenuation correction CT scan was performed. Correlation to prior nuclear medicine PET/CT dated 08/31/2019 Chest and neck: Left upper lobe lung nodule shows mild hypermetabolic uptake, SUV 4.1 as compared to prior exam where SUV was 2.3. There is central calcification, the nodule measures approximately 17 mm on both exams but is somewhat more well-defined, rounded on today's exam as compared to prior PET/CT 08/31/2019 There are additional subpleural nodules, in the right lower lobe laterally the subpleural location on axial image 106 nodule measures approximately 6 mm, in the subpleural location in the rig ht lower lobe on axial image 97, 6 mm soft tissue nodular density, upper right lung shows irregular s oft tissue on axial image #68 measuring 9 mm, no associated uptake, there are parenchymal bands, post op changes to the right lung. Findings are similar to prior exam. There is no supraclavicular or cerv ical adenopathy. No mediastinal, axillary, or hilar adenopathy. No pleural pericardial effusion. The ascending aorta measures 4.5 cm. There are coronary artery calcifications. Prominence of the pulm onary artery suggests pulmonary artery hypertension. ABDOMEN: No hypermetabolic uptake. No evident adrenal mass. There is streak artifact from patient's h ardware in the spine. Calcifications associated with the right kidney and left kidney, there is a gal lstone suspected, no evident liver mass or ascites. No retroperitoneal adenopathy. No pelvic adenopat hy. Osseous structures show no suspicious uptake. Postop change noted to the right shoulder. Degenerative disc change and facet arthropathy in the lower lumbar spine. IMPRESSION: Findings are similar to prior exam, mild hypermetabolic uptake, findings could possibly r epresent granuloma with central calcification. Additional follow-up suggested.
== END | disposition home or self-care (01) ==
LOC: RADPETMAIN 12:03
PROVIDERS: ATTEND Internal Medicine Hematology & Oncology
DX: R91.8 Other nonspecific abnormal finding of lung field (principal); R91.1 Solitary pulmonary nodule; Z92.21 Personal history of antineoplastic chemotherapy
CPT/HCPCS: 78815; A9552

== ENCOUNTER → 2021-05-04 | Outpatient (CLI) | payer MEDICARE ==
--- NOTE | 2021-05-04 21:59 | CT ---
EXAMINATION TYPE: CT chest w con DATE OF EXAM: 05/04/2021 COMPARISON: Prior chest CT March 04, 2020 and older studies HISTORY: f/u nodules, hx of lung ca CT DLP: 736 mGycm. Automated Exposure Control for Dose Reduction was Utilized. TECHNIQUE: CT scan of the thorax is performed following with IV Contrast, patient injected with 80cc mL of Isovue 300. FINDINGS: LUNGS: Mild to moderate underlying emphysematous change redemonstrated. Stable right apical linear sc arring. Increased interstitial markings bilaterally. Enlarging left upper lobe lobulated 3.3 x 2.9 cm mass axial image 12 from prior studies. Mild scattered linear scarring redemonstrated. Stable home care administrator ior medial 6 mm right lower lobe nodule image 26 from prior studies. Stable 7 x 6 mm peripheral right lower lobe nodule axial image 34 from prior studies. No pleural effusion or pneumothorax seen bilate rally. MEDIASTINUM: Stable mild cardiomegaly. Calcification of the aortic valve redemonstrated. At least mod erate coronary artery calcification in the LAD distribution. Moderate right atrial and right ventricu lar dilatation. Markedly Enlarged pulmonary arteries again seen. Persistent prominent and somewhat en larged prevascular, AP window lymph nodes along with paratracheal and subcarinal lymph nodes unchange d from prior studies. Stable ascending aortic aneurysmal to 4.2 cm. OTHER: Metallic hardware from right shoulder surgery causes streak artifact limiting evaluation in th e upper thorax. Surgical change lumbar spine is partially imaged. There is left-sided renal calculi p artially imaged. Intraluminal gallstones partially imaged on the last images. IMPRESSION: Interval continued enlargement of the left upper lobe mass strongly suspicious for neopla sm. Consider repeat PET/CT and/or sampling.
== END | disposition home or self-care (01) ==
LOC: RADCTMAIN 15:30
PROVIDERS: ATTEND Internal Medicine Critical Care Medicine
DX: R91.1 Solitary pulmonary nodule (principal)
CPT/HCPCS: 82565; 84520; 71260; 36415; Q9967

== ENCOUNTER → 2021-08-03 | Outpatient (CLI) | payer MEDICARE ==
--- NOTE | 2021-08-03 12:57 | CT ---
EXAMINATION TYPE: CT chest w con DATE OF EXAM: 08/03/2021 COMPARISON: CT dated 05/04/2021 HISTORY: Follow up of lung cancer CT DLP: 650.8 mGycm Automated exposure control for dose reduction was used. TECHNIQUE: CT scan of the chest is performed with IV Contrast, patient injected with 70 mL of Isovue 300. FINDINGS: LUNGS: Interval regression of the spiculated lesion in the left upper lobe measuring 24 x 26 mm kati red to 29 x 33 mm previously. Stable right lower lobe nodules measuring up to 8mm. Stable postsurgica l changes in the right lung. No new suspicious or progressive lung lesion. Patent trachea and main br onchi. No pleural effusion. MEDIASTINUM: Regressing mediastinal lymph nodes. For example, a right paratracheal lymph node measure s 15 mm compared to 20 mm previously. A prevascular lymph node measures 7 mm compared to 12 mm previo usly. No progressive lymph nodes seen in the chest. 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 Coronary and arterial atherosclerotic calcifications. No gross cardiomegaly. No pericardial effusion. OTHER: Artifactual images of the upper abdomen due to spinal fixation. Atrophic pancreas. Bilateral renal calculi with renal atrophic changes more on the left side. Right humeral head prosthesis. Degen erative changes of the thoracic spine. No gross aggressive bone lesion. IMPRESSION: Regressing left upper lobe spiculated lesion as well as mediastinal lymphadenopathy as described abov e. Stable right lower lobe pulmonary nodules. No new suspicious or progressive lung lesion. No progressive lymphadenopathy in the chest. Other inte rval changes and incidental findings as described above.
== END | disposition home or self-care (01) ==
LOC: RADCTMAIN 09:01
PROVIDERS: ATTEND Radiology Radiation Oncology
DX: C34.90 Malignant neoplasm of unspecified part of unspecified bronchus or lung (principal); R59.0 Localized enlarged lymph nodes
CPT/HCPCS: 82565; 84520; 71260; 36415; Q9967

== ENCOUNTER → 2021-11-30 | Outpatient (CLI) | payer MEDICARE ==
--- NOTE | 2021-11-30 14:11 | CT ---
EXAMINATION TYPE: CT chest w con DATE OF EXAM: 11/30/2021 COMPARISON: 08/03/2021 HISTORY: Lung CA CT DLP: 691 mGycm, Automated exposure control for dose reduction was used. CONTRAST: Performed injected with 80 mL of Isovue 300. TECHNIQUE: Axial images were obtained at 5 mm thick sections. Reconstructed images are reviewed on [employer] computer in the coronal plane. FINDINGS: Portions of the thyroid within the field of view is unremarkable. There is a spiculated mass measuring 2.5 x 1.7 cm in the anterior lateral left upper lung field. Seri es 4 image 16. This is smaller than comparison. There is an area of pneumonitis within the left mid lung and along the posterior lateral left lung. E xample image series 14 image 21. Small density may be in the periphery of the left mid lung measuring 0.5 cm. Series 4 image 23. There is nodularity along the medial posterior right lung and 0.8 cm. Ser ies 4 image 27. No enlarged mediastinal or hilar adenopathy is evident. The ascending aorta diameter at the level o f the main pulmonary artery is 4.4 cm. The main pulmonary artery diameter at the bifurcation is 5.1 cm. Correlate for pulmonary hypertension. Limited CT sections are obtained through the upper abdomen. Abdomen is essentially unremarkable. IMPRESSIONS: 1. Diminished size of a suspicious lung mass left upper lobe. 2. Additional scattered areas of pneumonitis nodularity discussed above. This appears present previou sly
== END | disposition home or self-care (01) ==
LOC: RADCTMAIN 12:07
PROVIDERS: ATTEND Radiology Radiation Oncology
DX: C34.12 Malignant neoplasm of upper lobe, left bronchus or lung (principal); J18.9 Pneumonia, unspecified organism
CPT/HCPCS: 82565; 84520; 71260; 36415; Q9967

== ENCOUNTER 2022-01-26 12:27 | Inpatient (IN) | payer MEDICARE ==
--- NOTE | 2022-01-26 13:26 | ED ---
General Adult HPI - General Chief complaint: Weakness Stated complaint: Weakness,Dehydration Time Seen by Provider: 01/26/22 12:45 Source: patient, RN notes reviewed, old records reviewed Mode of arrival: EMS Limitations: physical limitation - History of Present Illness Initial comments: This is an 81-year-old female presents emergency Department complaining of generalized weakness. Patient has a past medical history significant for COPD and possibly bone cancer and states she just had cervical spine surgery at the beginning of December. Patient states since she's had surgery she can come home she states she's become weaker and weaker there is no focal deficits other than her left arm which is the reason she had the surgery to begin with but that is not worsened. Patient denies any fevers or chills per patient denies any difficulty breathing or shortness of breath or chest pain. Patient denies any abdominal pain. Patient states she's having no vomiting or diarrhea. Patient denies any injury or trauma. Patient states his chest to the point where she is overall more weak and her and her combined cannot get her up out of bed to move around. Patient states this is been a slow onset. - Related Data Home Medications Medication Instructions Recorded Confirmed Albuterol Inhaler [Ventolin Hfa 2 puff INHALATION RT-QID PRN 08/23/19 01/26/22 Inhaler] Apixaban [Eliquis] 5 mg PO BID 08/23/19 01/26/22 Aspirin EC [Ecotrin Low Dose] 81 mg PO HS 08/23/19 01/26/22 Budesonide/Formoterol Fumarate 2 puff INHALATION RT-BID 08/23/19 01/26/22 [Symbicort 160-4.5 Mcg Inhaler] Cyanocobalamin (Vitamin B-12) 1,000 mcg PO HS 08/23/19 01/26/22 [Vitamin B-12] Doxazosin [Cardura] 4 mg PO HS 08/23/19 01/26/22 Montelukast Sodium [Singulair] 10 mg PO DAILY 08/23/19 01/26/22 Omeprazole [PriLOSEC] 20 mg PO BID 08/23/19 01/26/22 Pravastatin Sodium [Pravachol] 40 mg PO HS 08/23/19 01/26/22 Tolterodine ER [Detrol LA] 4 mg PO DAILY 08/23/19 01/26/22 Umeclidinium [place] [Incruse 1 puff INHALATION RT-DAILY 08/23/19 01/26/22 Ellipta] Vit C/E/Zn/Coppr/Lutein/Zeaxan 2 cap PO HS 08/23/19 01/26/22 [Preservision Areds 2 Softgel] allopurinoL [Zyloprim] 100 mg PO BID 08/23/19 01/26/22 Cholecalciferol [Vitamin D3 (25 50 mcg PO HS 01/26/22 01/26/22 Mcg = 1000 Iu)] Furosemide [Lasix] 40 mg PO DAILY 01/26/22 01/26/22 Gabapentin [Neurontin] 100 mg PO TID 01/26/22 01/26/22 Hydrocodone/Acetaminophen 1 tab PO Q6H PRN 01/26/22 01/26/22 [Hydrocodone/Acetaminophen 7.5-325] Levothyroxine Sodium [Synthroid] 125 mcg PO DAILY 01/26/22 01/26/22 Spironolactone [Aldactone] 25 mg PO DAILY 01/26/22 01/26/22 buPROPion HCL [buPROPion HCL SR] 100 mg PO BID 01/26/22 01/26/22 Allergies Allergy/AdvReac Type Severity Reaction Status Date / Time amlodipine Allergy Swelling Verified 01/26/22 13:47 atorvastatin Allergy Unknown Verified 01/26/22 13:47 meperidine [From Demerol] Allergy Nausea & Verified 01/26/22 13:47 Vomiting Review of Systems ROS Statement: Those systems with pertinent positive or pertinent negative responses have been documented in the HPI. ROS Other: All systems not noted in ROS Statement are negative. Past Medical History Past Medical History: Cancer, GERD/Reflux, Hyperlipidemia, Hypertension, Pneumonia Additional Past Medical History / Comment(s): lung cancer History of Any Multi-Drug Resistant Organisms: None Reported Past Surgical History: Joint Replacement Additional Past Surgical History / Comment(s): right upper lobe removal from lung cancer 2005, bilat knee, R shoulder Past Psychological History: No Psychological Hx Reported Past Alcohol Use History: Occasional Past Drug Use History: None Reported General Exam - General Exam Comments Initial Comments: GENERAL: Patient is well-developed and well-nourished. Patient is nontoxic and well- hydrated and is in mild distress. ENT: Neck is soft and supple. No significant lymphadenopathy is noted. Oropharynx is clear. Moist mucous membranes. Neck has full range of motion without eliciting any pain. EYES: The sclera were anicteric and conjunctiva were pink and moist. Extraocular movements were intact and pupils were equal round and reactive to light. Eyelids were unremarkable. PULMONARY: Unlabored respirations. Good breath sounds bilaterally. No audible rales r honchi or wheezing was noted. CARDIOVASCULAR: There is a regular rate and rhythm without any murmurs gallops or rubs. ABDOMEN: Soft and nontender with normal bowel sounds. SKIN: Skin is clear with no lesions or rashes and otherwise unremarkable. NEUROLOGIC: Patient is alert and oriented x3. Cranial nerves II through XII are grossly intact. Normal speech, volume and content. Symmetrical smile. MUSCULOSKELETAL: Patient moves both legs with equal strength. Patient's left arm was fully p atient's right arm is limited movement causes her quite a bit of pain but she states this is the reason she had the neck surgery and things have not changed since the surgery. LYMPHATICS: No significant lymphadenopathy is noted PSYCHIATRIC: Normal psychiatric evaluation. Limitations: physical limitation Course Vital Signs 01/26/22 01/26/22 12:44 13:57 Temperature 98 F 98.7 F Pulse Rate 87 89 Respiratory 16 18 Rate Blood Pressure 118/81 118/81 Medical Decision Making - Medical Decision Making EKG as interpreted by me. EKG sinus rhythm at 84 bpm MN interval is 201 QRS is 96 QT interval 373 QTC is 414. Patient's EKG shows no ST segment elevation or depression. I interpret the chest x-ray. Chest x-ray shows an infiltrate around a spiculated lesion that was seen earlier on chest CT. Patient was started on Rocephin for this and the urinary tract infection. Patient also had an elevated troponin. I consulted cardiology and I spoke with Dr. Armenta he agreed to admit the patient minute the patient wrote admitting orders. - Lab Data Result diagrams: 01/26/22 13:34 01/26/22 13:34 Lab Results 01/26/22 01/26/22 01/26/22 Range/Units 13:34 13:34 13:34 WBC 9.3 (3.8-10.6) k/uL RBC 4.04 (3.80-5.40) m/uL Hgb 12.3 (11.4-16.0) gm/dL Hct 38.0 (34.0-46.0) % MCV 94.2 (80.0-100.0) fL MCH 30.5 (25.0-35.0) pg MCHC 32.4 (31.0-37.0) g/dL RDW 14.7 (11.5-15.5) % Plt Count 335 (150-450) k/uL MPV 7.1 Neutrophils % 82 % Lymphocytes % 10 % Monocytes % 6 % Eosinophils % 1 % Basophils % 1 % Neutrophils # 7.6 (1.3-7.7) k/uL Lymphocytes # 0.9 L (1.0-4.8) k/uL Monocytes # 0.5 (0-1.0) k/uL Eosinophils # 0.1 (0-0.7) k/uL Basophils # 0.1 (0-0.2) k/uL Hypochromasia Slight PT 10.9 (9.0-12.0) sec INR 1.0 (<1.2) APTT 26.3 (22.0-30.0) sec Sodium (137-145) mmol/L Potassium (3.5-5.1) mmol/L Chloride (98-107) mmol/L Carbon Dioxide (22-30) mmol/L Anion Gap mmol/L BUN (7-17) mg/dL Creatinine (0.52-1.04) mg/dL Est GFR (CKD-EPI)AfAm (>60 ml/min/1.73 sqM) Est GFR (CKD-EPI)NonAf (>60 ml/min/1.73 sqM) Glucose (74-99) mg/dL Plasma Lactic Acid Ruben (0.7-2.0) mmol/L Calcium (8.4-10.2) mg/dL Magnesium (1.6-2.3) mg/dL Total Bilirubin (0.2-1.3) mg/dL AST (14-36) U/L ALT (4-34) U/L Alkaline Phosphatase (38-126) U/L Troponin I (0.000-0.034) ng/mL Total Protein (6.3-8.2) g/dL Albumin (3.5-5.0) g/dL TSH (0.465-4.680) mIU/L Urine Color Light Yellow Urine Appearance Cloudy H (Clear) Urine pH 6.5 (5.0-8.0) Ur Specific [place] 1.008 (1.001-1.035) Urine Protein Negative (Negative) Urine Glucose (UA) Negative (Negative) Urine Ketones Negative (Negative) Urine Blood Large H (Negative) Urine Nitrite Negative (Negative) Urine Bilirubin Negative (Negative) Urine Urobilinogen <2.0 (<2.0) mg/dL Ur Leukocyte Esterase Moderate H (Negative) Urine RBC 30 H (0-5) /hpf Urine WBC 14 H (0-5) /hpf Ur Squamous Epith Cells 2 (0-4) /hpf Amorphous Sediment Rare H (None) /hpf Urine Bacteria Many H (None) /hpf Urine Mucus Rare H (None) /hpf 01/26/22 01/26/22 01/26/22 Range/Units 13:34 13:34 13:34 WBC (3.8-10.6) k/uL RBC (3.80-5.40) m/uL Hgb (11.4-16.0) gm/dL Hct (34.0-46.0) % MCV (80.0-100.0) fL MCH (25.0-35.0) pg MCHC (31.0-37.0) g/dL RDW (11.5-15.5) % Plt Count (150-450) k/uL MPV Neutrophils % % Lymphocytes % % Monocytes % % Eosinophils % % Basophils % % Neutrophils # (1.3-7.7) k/uL Lymphocytes # (1.0-4.8) k/uL Monocytes # (0-1.0) k/uL Eosinophils # (0-0.7) k/uL Basophils # (0-0.2) k/uL Hypochromasia PT (9.0-12.0) sec INR (<1.2) APTT (22.0-30.0) sec Sodium 132 L (137-145) mmol/L Potassium 4.3 (3.5-5.1) mmol/L Chloride 89 L (98-107) mmol/L Carbon Dioxide 39 H (22-30) mmol/L Anion Gap 4 mmol/L BUN 30 H (7-17) mg/dL Creatinine 0.95 (0.52-1.04) mg/dL Est GFR (CKD-EPI)AfAm 65 (>60 ml/min/1.73 sqM) Est GFR (CKD-EPI)NonAf 56 (>60 ml/min/1.73 sqM) Glucose 90 (74-99) mg/dL Plasma Lactic Acid Ruben 0.8 (0.7-2.0) mmol/L Calcium 8.2 L (8.4-10.2) mg/dL Magnesium 1.8 (1.6-2.3) mg/dL Total Bilirubin 0.5 (0.2-1.3) mg/dL AST 17 (14-36) U/L ALT 11 (4-34) U/L Alkaline Phosphatase 124 (38-126) U/L Troponin I 0.051 H* (0.000-0.034) ng/mL Total Protein 5.5 L (6.3-8.2) g/dL Albumin 3.1 L (3.5-5.0) g/dL TSH 4.290 (0.465-4.680) mIU/L Urine Color Urine Appearance (Clear) Urine pH (5.0-8.0) Ur Specific [place] (1.001-1.035) Urine Protein (Negative) Urine Glucose (UA) (Negative) Urine Ketones (Negative) Urine Blood (Negative) Urine Nitrite (Negative) Urine Bilirubin (Negative) Urine Urobilinogen (<2.0) mg/dL Ur Leukocyte Esterase (Negative) Urine RBC (0-5) /hpf Urine WBC (0-5) /hpf Ur Squamous Epith Cells (0-4) /hpf Amorphous Sediment (None) /hpf Urine Bacteria (None) /hpf Urine Mucus (None) /hpf Disposition Clinical Impression: Urinary tract infection, Generalized weakness, Elevated troponin, Pneumonia, Lung mass Disposition: ADMITTED IP TO THIS HOSP Referrals: Oscar Redd MD [Primary Care Provider] - 1-2 days Time of Disposition: 15:00
[2022-01-26 13:42] LABS: Basophils # (A) 0.1 k/uL (0-0.2); Basophils % (A) 1 %; Eosinophils # (A) 0.1 k/uL (0-0.7); Eosinophils % (A) 1 %; HGB 12.3 gm/dL (11.4-16.0); Hypochromasia Slight; Lymphocytes # (A) 0.9 k/uL (1.0-4.8); Lymphocytes % (A) 10 %; MCH 30.5 pg (25.0-35.0); MCHC 32.4 g/dL (31.0-37.0); MCV 94.2 fL (80.0-100.0); Mean Platelet Volume 7.1; Monocytes # (A) 0.5 k/uL (0-1.0); Monocytes % (A) 6 %; Neutrophils # (A) 7.6 k/uL (1.3-7.7); Neutrophils % (A) 82 %; Platelet Count 335 k/uL (150-450); RBC 4.04 m/uL (3.80-5.40); RDW 14.7 % (11.5-15.5); WBC 9.3 k/uL (3.8-10.6)
[2022-01-26 13:52] LABS: Partial Thromboplastin Time 26.3 sec (22.0-30.0); Prothrombin Time 10.9 sec (9.0-12.0)
[2022-01-26 13:53] LABS: Albumin 3.1 g/dL (3.5-5.0); Calcium 8.2 mg/dL (8.4-10.2); Magnesium 1.8 mg/dL (1.6-2.3); Potassium 4.3 mmol/L (3.5-5.1); Total Bilirubin 0.5 mg/dL (0.2-1.3); Total Protein 5.5 g/dL (6.3-8.2)
[2022-01-26 14:06] LABS: Amorphous Sediment,Urine Rare /hpf; Appearance,Urine Cloudy (Clear); Bacteria,Urine Many /hpf; Bilirubin,Urine Negative (Negative); Blood,Urine Large (Negative); Color,Urine Light Yellow; Glucose,Urine (UA) Negative (Negative); Ketones,Urine Negative (Negative); Leukocyte Esterase,Urine Moderate (Negative); Mucus,Urine Rare /hpf; Nitrite,Urine Negative (Negative); PH, Urine 6.5 (5.0-8.0); Protein,Urine Negative (Negative); RBC,Urine 30 /hpf (0-5); Specific Gravity,Urine 1.008 (1.001-1.035); Squamous Epithelial Cell,Urine 2 /hpf (0-4); Urobilinogen,Urine <2.0 mg/dL (<2.0); WBC,Urine 14 /hpf (0-5)
--- NOTE | 2022-01-26 14:41 | XR ---
EXAMINATION TYPE: XR chest 2V DATE OF EXAM: 01/26/2022 2:34 PM COMPARISON: CT chest 11/30/2021, chest radiograph 08/27/2019. TECHNIQUE: XR chest 2V Frontal and lateral views of the chest. CLINICAL INDICATION:Female, 81 years old with history of Weakness; FINDINGS: Lungs/Pleura: No pleural effusions or pneumothorax. Patchy airspace disease demonstrated within the l eft upper lung. Pulmonary vascularity: Unremarkable. Heart/mediastinum: Cardiomediastinal silhouette is stable. Musculoskeletal: No acute osseous pathology. Right shoulder prosthesis. Arthropathy of the left shoul judy. Cervical fusion hardware. Multilevel degenerative changes of the spine. IMPRESSION: Patchy airspace disease within the upper lung around region of known spiculated nodule. This may rela jose ramon to atelectasis versus infiltrate versus worsening cancer.
[2022-01-26] MEDS ORDERED: cefTRIAXone IN SWFI 1,000 MG/10 ML SYRINGE IVP STA ×2 (14:43→14:44)
[2022-01-26] MEDS ORDERED: PNEUMONIA PROTOCOL UTILIZED 1 EACH MISC PO PRN (15:07)
[2022-01-26] MEDS ORDERED: AZITHROMYCIN 500 MG in SODIUM CHLORIDE 0.9% 250 ML IVPB STA (15:07)
[2022-01-26] MEDS: GABAPENTIN 100 MG CAP PO SCH (23:31)
[2022-01-26] MEDS: PRAVASTATIN SODIUM 40 MG TAB PO SCH (23:31)
[2022-01-26] MEDS: DOXAZOSIN 4 MG TAB PO SCH (23:31)
[2022-01-26] MEDS: allopurinoL 100 MG TAB PO SCH (23:31)
[2022-01-26] MEDS: ASPIRIN 81 MG PO SCH (23:31)
[2022-01-26] MEDS: APIXABAN 5 MG TAB PO SCH (23:31)
--- NOTE | 2022-01-26 23:54 | P.HPIM ---
History of Present Illness H&P Date: 01/26/22 Chief Complaint: Generalized weakness Patient is a 81-year-old female with a known history of lung cancer at the right upper lobe resection in 2005, left arm pain, hypertension, hyperlipidemia, GERD who is on follow-up with oncology as an outpatient presents to ER with compl aints of generalized weakness. Patient is having left upper extremity weakness and recently had cervical spine surgery in December 2021. Patient states that she is becoming more weak and also having left arm pain which is not resolved after cervical surgery. Patient was recommended PET scan as an outpatient and was supposed to follow-up with oncology. Patient states that she is feeling weak and also unable to get physical therapy due to left arm pain. Denies any fever or chills. No nausea vomiting abdominal pain or diarrhea. No complaints of chest pain shortness of breath. Chest x-ray showed patchy airspace disease within the upper lung around region of known spiculated nodule. This may related to atelectasis versus infiltrate versus worsening cancer. EKG showed sinus rhythm. Laboratory data showed WBC 9.3 hemoglobin 12.3 and platelets 335 Sodium 132 potassium 4.3 chloride 89 bicarb is 39 BUN 13 creatinine 0.95 Lactic acid 0.8, troponin 0.051, 0.056 and 0.055 and albumin 3.1 Urinalysis showed large blood moderate leukocyte esterase with elevated RBCs and WBCs. Review of Systems Constitutional: Patient denies any fever or chills . generalized weakness or weight loss. Abdomen: Patient denied nausea vomiting and diarrhea and abdominal pain. Cardiovascular: Patient denies any chest pain or short of breath no palpitations. Respiratory: patient denied any cough or sputum production. No shortness of breath Neurologic: Patient denied any numbness or tingling headache. Musculoskeletal: Patient denies any complaints of joint swelling or deformity. left arm pain Skin: Negative Psychiatric: Negative Endocrine: No heat or cold intolerance. No recent weight gain. Genitourinary: No dysuria or hematuria. All other 14 point ROS negative except the above Past Medical History Past Medical History: Cancer, GERD/Reflux, Hyperlipidemia, Hypertension, Pneumonia Additional Past Medical History / Comment(s): lung cancer History of Any Multi-Drug Resistant Organisms: None Reported Past Surgical History: Joint Replacement Additional Past Surgical History / Comment(s): right upper lobe removal from lung cancer 2005, bilat knee, R shoulder Past Psychological History: No Psychological Hx Reported Past Alcohol Use History: Occasional Past Drug Use History: None Reported Medications and Allergies Home Medications Medication Instructions Recorded Confirmed Type Albuterol Inhaler [Ventolin Hfa 2 puff INHALATION RT-QID PRN 08/23/19 01/26/22 History Inhaler] Apixaban [Eliquis] 5 mg PO BID 08/23/19 01/26/22 History Aspirin EC [Ecotrin Low Dose] 81 mg PO HS 08/23/19 01/26/22 History Budesonide/Formoterol Fumarate 2 puff INHALATION RT-BID 08/23/19 01/26/22 History [Symbicort 160-4.5 Mcg Inhaler] Cyanocobalamin (Vitamin B-12) 1,000 mcg PO HS 08/23/19 01/26/22 History [Vitamin B-12] Doxazosin [Cardura] 4 mg PO HS 08/23/19 01/26/22 History Montelukast Sodium [Singulair] 10 mg PO DAILY 08/23/19 01/26/22 History Omeprazole [PriLOSEC] 20 mg PO BID 08/23/19 01/26/22 History Pravastatin Sodium [Pravachol] 40 mg PO HS 08/23/19 01/26/22 History Tolterodine ER [Detrol LA] 4 mg PO DAILY 08/23/19 01/26/22 History Umeclidinium [place] [Incruse 1 puff INHALATION RT-DAILY 08/23/19 01/26/22 History Ellipta] Vit C/E/Zn/Coppr/Lutein/Zeaxan 2 cap PO HS 08/23/19 01/26/22 History [Preservision Areds 2 Softgel] allopurinoL [Zyloprim] 100 mg PO BID 08/23/19 01/26/22 History Cholecalciferol [Vitamin D3 (25 50 mcg PO HS 01/26/22 01/26/22 History Mcg = 1000 Iu)] Furosemide [Lasix] 40 mg PO DAILY 01/26/22 01/26/22 History Gabapentin [Neurontin] 100 mg PO TID 01/26/22 01/26/22 History Hydrocodone/Acetaminophen 1 tab PO Q6H PRN 01/26/22 01/26/22 History [Hydrocodone/Acetaminophen 7.5-325] Levothyroxine Sodium [Synthroid] 125 mcg PO DAILY 01/26/22 01/26/22 History Spironolactone [Aldactone] 25 mg PO DAILY 01/26/22 01/26/22 History buPROPion HCL [buPROPion HCL SR] 100 mg PO BID 01/26/22 01/26/22 History Allergies Allergy/AdvReac Type Severity Reaction Status Date / Time amlodipine Allergy Swelling Verified 01/26/22 15:12 atorvastatin Allergy Unknown Verified 01/26/22 15:12 meperidine [From Demerol] Allergy Nausea & Verified 01/26/22 15:12 Vomiting Physical Exam Vitals: Vital Signs Temp Pulse Resp BP Pulse Ox 01/26/22 17:30 86 19 107/71 95 01/26/22 17:00 78 15 104/68 95 01/26/22 16:30 80 15 99/64 94 L 01/26/22 16:00 84 20 104/72 94 L 01/26/22 15:30 87 21 106/73 93 L 01/26/22 15:00 87 21 124/84 94 L 01/26/22 14:30 87 21 100/79 93 L 01/26/22 14:00 88 20 86/69 94 L 01/26/22 13:57 98.7 F 89 18 118/81 01/26/22 13:30 88 15 106/83 94 L 01/26/22 12:44 98 F 87 16 118/81 Intake and Output 01/26/22 01/26/22 01/26/22 06:59 14:59 22:59 Other: Weight 98.43 kg PHYSICAL EXAMINATION: Patient is lying in the bed comfortably, no acute distress, awake alert and oriented.. HEENT: Normocephalic. Neck is supple. Pupils reactive. Nostrils clear. Oral cavity is moist. Neck reveals no JVD, carotid bruits, or thyromegaly. CHEST EXAMINATION: Trachea is central. Symmetrical expansion. Lung [place] clear to auscultation and percussion. CARDIAC: Normal S1, S2 with no gallops. No murmurs ABDOMEN: Soft. Bowel sounds normal. No organomegaly. No abdominal bruits. Extremities: reveal no edema. No clubbing or cyanosis Neurologically awake, alert, oriented x3 with well-coordinated movements. No focal deficits noted Skin: No rash or skin lesions. Psychiatric: Cooperative. Nonsuicidal Musculoskeletal: No joint swelling or deformity. Left arm tenderness and decreased range of motion. Results CBC & Chem 7: 01/27/22 07:21 01/27/22 07:21 Labs: Abnormal Lab Results - Last 24 Hours (Table) 01/26/22 01/26/22 01/26/22 Range/Units 13:34 13:34 13:34 Lymphocytes # 0.9 L (1.0-4.8) k/uL Sodium 132 L (137-145) mmol/L Chloride 89 L (98-107) mmol/L Carbon Dioxide 39 H (22-30) mmol/L BUN 30 H (7-17) mg/dL Plasma Lactic Acid Ruben (0.7-2.0) mmol/L Calcium 8.2 L (8.4-10.2) mg/dL Troponin I (0.000-0.034) ng/mL Total Protein 5.5 L (6.3-8.2) g/dL Albumin 3.1 L (3.5-5.0) g/dL Urine Appearance Cloudy H (Clear) Urine Blood Large H (Negative) Ur Leukocyte Esterase Moderate H (Negative) Urine RBC 30 H (0-5) /hpf Urine WBC 14 H (0-5) /hpf Amorphous Sediment Rare H (None) /hpf Urine Bacteria Many H (None) /hpf Urine Mucus Rare H (None) /hpf 01/26/22 01/26/22 01/26/22 Range/Units 13:34 14:52 16:28 Lymphocytes # (1.0-4.8) k/uL Sodium (137-145) mmol/L Chloride (98-107) mmol/L Carbon Dioxide (22-30) mmol/L BUN (7-17) mg/dL Plasma Lactic Acid Ruben 0.6 L (0.7-2.0) mmol/L Calcium (8.4-10.2) mg/dL Troponin I 0.051 H* 0.056 H* (0.000-0.034) ng/mL Total Protein (6.3-8.2) g/dL Albumin (3.5-5.0) g/dL Urine Appearance (Clear) Urine Blood (Negative) Ur Leukocyte Esterase (Negative) Urine RBC (0-5) /hpf Urine WBC (0-5) /hpf Amorphous Sediment (None) /hpf Urine Bacteria (None) /hpf Urine Mucus (None) /hpf 01/26/22 Range/Units 18:57 Lymphocytes # (1.0-4.8) k/uL Sodium (137-145) mmol/L Chloride (98-107) mmol/L Carbon Dioxide (22-30) mmol/L BUN (7-17) mg/dL Plasma Lactic Acid Ruben (0.7-2.0) mmol/L Calcium (8.4-10.2) mg/dL Troponin I 0.055 H* (0.000-0.034) ng/mL Total Protein (6.3-8.2) g/dL Albumin (3.5-5.0) g/dL Urine Appearance (Clear) Urine Blood (Negative) Ur Leukocyte Esterase (Negative) Urine RBC (0-5) /hpf Urine WBC (0-5) /hpf Amorphous Sediment (None) /hpf Urine Bacteria (None) /hpf Urine Mucus (None) /hpf Microbiology - Last 24 Hours (Table) 01/26/22 13:34 Urine Culture - Preliminary Urine,Voided Thrombosis Risk Factor Assmnt - DVT/VTE Prophylaxis DVT/VTE Prophylaxis: Pharmacologic Prophylaxis ordered Assessment and Plan Assessment: Generalized weakness and left arm pain Left upper lobe patchy infiltrate with possible atelectasis versus pneumonia Urinary tract infection Lung cancer with history of left upper lobe resection in 2005 and disease progression recently. Scheduled for PET scan as outpatient Recently diagnosed DVT of the right lower extremity and left upper extremity. Currently on Eliquis. Elevated troponin level Hypertension Hyperlipidemia GERD Plan: Patient will be trialed on antibiotics involved ceftriaxone azithromycin. Follow blood cultures and urine cultures. Continue with pain management. Cardiology was consulted due to elevated tro ponin level. Continue with anticoagulation in the form of Eliquis. Oncology evaluation and current with home medications. Follow-up closely. Discussed with the patient and her at bedside in detail. Prognosis is guarded at this time. Time with Patient: Greater than 30
[2022-01-27] MEDS: HYDROcodone/APAP 7.5-325MG 1 EACH TAB PO PRN ×3 (03:57→17:09)
[2022-01-27] MEDS: LEVOTHYROXINE 125 MCG TAB PO SCH (06:35)
--- NOTE | 2022-01-27 07:17 | XR ---
EXAMINATION TYPE: XR chest 1V portable DATE OF EXAM: 01/27/2022 6:34 AM COMPARISON: Chest radiograph from one day prior. CT imaging 11/30/2021. TECHNIQUE: XR chest 1V portable Portable AP radiograph of the chest. CLINICAL INDICATION:Female, 81 years old with history of pneumonia; FINDINGS: Lungs/Pleura: Persistent left upper lung airspace opacities. There is no evidence of pleural effusion , focal consolidation, or pneumothorax. Left upper lobe pulmonary nodule better appreciated on CT im aging. Pulmonary vascularity: Unremarkable. Heart/mediastinum: Cardiomediastinal silhouette is unremarkable. Surgical changes on the right pulmon ventura hilum. Musculoskeletal: No acute osseous pathology. There is fixation hardware in the lower cervical spine. Right shoulder arthroplasty changes. IMPRESSION: 1. Similar left upper lung airspace opacities. 2. Left upper lung pulmonary nodule.
[2022-01-27 07:37] LABS: Basophils # (A) 0.1 k/uL (0-0.2); Basophils % (A) 1 %; Eosinophils # (A) 0.1 k/uL (0-0.7); Eosinophils % (A) 1 %; HCT 37.2 % (34.0-46.0); HGB 11.8 gm/dL (11.4-16.0); Hypochromasia Moderate; Lymphocytes % (A) 12 %; MCH 30.5 pg (25.0-35.0); MCHC 31.7 g/dL (31.0-37.0); MCV 96.1 fL (80.0-100.0); Mean Platelet Volume 7.1; Monocytes # (A) 0.5 k/uL (0-1.0); Monocytes % (A) 7 %; Neutrophils # (A) 6.2 k/uL (1.3-7.7); Neutrophils % (A) 78 %; Platelet Count 306 k/uL (150-450); RBC 3.88 m/uL (3.80-5.40); RDW 14.8 % (11.5-15.5); WBC 7.9 k/uL (3.8-10.6)
[2022-01-27] MEDS: allopurinoL 100 MG TAB PO SCH ×2 (08:03→22:06)
[2022-01-27] MEDS: PANTOPRAZOLE 40 MG TABLET PO SCH ×2 (08:03→22:19)
[2022-01-27] MEDS: MONTELUKAST 10 MG TAB PO SCH (08:03)
[2022-01-27] MEDS: SPIRONOLACTONE 25 MG TAB PO SCH (08:04)
[2022-01-27] MEDS: buPROPion SR 100 MG TABLET.ER PO SCH ×3 (08:04→22:05)
[2022-01-27] MEDS: FUROSEMIDE 40 MG TAB PO SCH (08:04)
[2022-01-27] MEDS: AZITHROMYCIN 500 MG TAB PO SCH (08:04)
[2022-01-27] MEDS: APIXABAN 5 MG TAB PO SCH ×2 (08:04→22:06)
[2022-01-27] MEDS: SYMBICORT 160-4.5 MCG INHALER INHALATION SCH ×2 (08:04→20:33)
[2022-01-27] MEDS: GABAPENTIN 100 MG CAP PO SCH ×3 (08:04→22:06)
[2022-01-27 08:05] LABS: Calcium 8.2 mg/dL (8.4-10.2); Potassium 4.2 mmol/L (3.5-5.1)
[2022-01-27] MEDS: ALBUTEROL NEBULIZED 2.5 MG/3 ML INHALATION PRN ×4 (08:05→20:33)
--- NOTE | 2022-01-27 10:56 | P.CRDCN ---
History of Present Illness History of present illness: HISTORY OF PRESENTING ILLNESS This is a pleasant 81- year-old female past medical history significant for hypertension, DVT on Eliquis, dyslipidemia, GERD, lung cancer (Sees Dr. Nam) She follows in the office with Dr. Bourgeois. We have been asked to see in consultation for elevated troponin. Patient presents to the ER with complaints of generalized weakness. She states she had cervical spine surgery in December and have been progressively weaker in her bilateral legs and her left arm. These symptoms of left arm began in October. She is being worked up and plan for possible PET scan to evaluate. She denies any chest pain, shortness of breath, lightheadedness, dizziness, syncope or near syncope, palpitations, symptoms of orthopnea or PND. She has no known history of CAD, [place], Stroke, diabetes. She states she sees Dr. Bourgeois mostly for her blood pressure. She states she recently had a normal stress test and echocardiogram at [facility]. There was concern for pneumonia and patient was started on antibiotics DIAGNOSTICS * EKG reveals sinus rhythm, heart rate 84, nonspecific STT wave abnormalities in lateral leads similar findings and previous EKG. * Telemetry tracings indicate sinus mechanism * Chest xray left upper lung pulmonary nodule, persistent left upper lung op acities * Laboratory reviewed, CBC unremarkable, sodium 134, potassium 4.2, BUN 24, serum creatinine 0.7, troponin 0.053, albumin 3.1, magnesium 1.8 * Echocardiogram at [facility] in 12/19/2021 revealed an EF of 6065 percent, no regional wall motion abnormalities. * Current home cardiac medications include aspirin 80 mg daily, spironolactone 20 mg daily, Lasix 40 mg daily, Eliquis 5 mg twice a day. REVIEW OF SYSTEMS At the time of my exam: CONSTITUTIONAL: Denies fever or chills. +generalized weakness CARDIOVASCULAR: Denies chest pain, shortness of breath, orthopnea, PND or palpitations. RESPIRATORY: Denies cough. GASTROINTESTINAL: Denies abdominal pain, diarrhea, constipation, nausea or vomiting. MUSCULOSKELETAL: Denies myalgias. NEUROLOGIC: Denies numbness, tingling, headacbe or weakness. ENDOCRINE: Denies fatigue, weight change, polydipsia or polyurina. GENITOURINARY: Denies burning, hematuria or urgency with micturation. HEMATOLOGIC: Denies history of anemia or bleeding. PHYSICAL EXAMINATION Blood pressure 123/78, heart 66, afebrile, saturation 95% on 2 L nasal cannula CONSTITUTIONAL: No apparent distress. HEENT: Head is normocephalic. Pupils are equal, round. Sclerae anicteric. Mucous membranes of the mouth are moist. No JVD. No carotid bruit. CHEST EXAMINATION: Lungs are diminished bilaterally to auscultation. No chest wall tenderness is noted on palpation or with deep breathing. HEART EXAMINATION: Regular rate and rhythm. S1, S2 heard. No murmurs, gallops or rub. ABDOMEN: Soft, nontender. Positive bowel sounds. EXTREMITIES: 2+ peripheral pulses, 3+ bilateral lower extremity edema and no calf tenderness. NEUROLOGIC EXAMINATION: Patient is awake, alert and oriented x3. ASSESSMENT Elevated troponin, not consistent with acute coronary syndrome, no ischemic changes on EKG patient without chest pain Possible pneumonia History of DVT on Eliquis History of Hypertension Dyslipidemia GERD History of lung cancer, follows with Dr. Viv FELIX Recent echocardiogram reviewed from [facility] with EF 60-65%, no significant wall motion or valvular abnormalities Will obtain records of patient's recent stress test No further changes from a cardiology perspective Continue home cardiac medications Rest of management per primary Nurse practitioner note has been reviewed by physician. Signing provider agrees with the documented findings, assessment, and plan of care. Past Medical History Past Medical History: Cancer, GERD/Reflux, Hyperlipidemia, Hypertension, Pneumonia Additional Past Medical History / Comment(s): lung cancer History of Any Multi-Drug Resistant Organisms: None Reported Past Surgical History: Joint Replacement Additional Past Surgical History / Comment(s): right upper lobe removal from lung cancer 2005, bilat knee, R shoulder Past Anesthesia/Blood Transfusion Reactions: No Reported Reaction Past Psychological History: No Psychological Hx Reported Past Alcohol Use History: Occasional Past Drug Use History: None Reported Medications and Allergies Home Medications Medication Instructions Recorded Confirmed Type Albuterol Inhaler [Ventolin Hfa 2 puff INHALATION RT-QID PRN 08/23/19 01/26/22 History Inhaler] Apixaban [Eliquis] 5 mg PO BID 08/23/19 01/26/22 History Aspirin EC [Ecotrin Low Dose] 81 mg PO HS 08/23/19 01/26/22 History Budesonide/Formoterol Fumarate 2 puff INHALATION RT-BID 08/23/19 01/26/22 History [Symbicort 160-4.5 Mcg Inhaler] Cyanocobalamin (Vitamin B-12) 1,000 mcg PO HS 08/23/19 01/26/22 History [Vitamin B-12] Doxazosin [Cardura] 4 mg PO HS 08/23/19 01/26/22 History Montelukast Sodium [Singulair] 10 mg PO DAILY 08/23/19 01/26/22 History Omeprazole [PriLOSEC] 20 mg PO BID 08/23/19 01/26/22 History Pravastatin Sodium [Pravachol] 40 mg PO HS 08/23/19 01/26/22 History Tolterodine ER [Detrol LA] 4 mg PO DAILY 08/23/19 01/26/22 History Umeclidinium [place] [Incruse 1 puff INHALATION RT-DAILY 08/23/19 01/26/22 History Ellipta] Vit C/E/Zn/Coppr/Lutein/Zeaxan 2 cap PO HS 08/23/19 01/26/22 History [Preservision Areds 2 Softgel] allopurinoL [Zyloprim] 100 mg PO BID 08/23/19 01/26/22 History Cholecalciferol [Vitamin D3 (25 50 mcg PO HS 01/26/22 01/26/22 History Mcg = 1000 Iu)] Furosemide [Lasix] 40 mg PO DAILY 01/26/22 01/26/22 History Gabapentin [Neurontin] 100 mg PO TID 01/26/22 01/26/22 History Hydrocodone/Acetaminophen 1 tab PO Q6H PRN 01/26/22 01/26/22 History [Hydrocodone/Acetaminophen 7.5-325] Levothyroxine Sodium [Synthroid] 125 mcg PO DAILY 01/26/22 01/26/22 History Spironolactone [Aldactone] 25 mg PO DAILY 01/26/22 01/26/22 History buPROPion HCL [buPROPion HCL SR] 100 mg PO BID 01/26/22 01/26/22 History Allergies Allergy/AdvReac Type Severity Reaction Status Date / Time amlodipine Allergy Swelling Verified 01/26/22 15:12 atorvastatin Allergy Unknown Verified 01/26/22 15:12 meperidine [From Demerol] Allergy Nausea & Verified 01/26/22 15:12 Vomiting Physical Exam Vitals: Vital Signs Temp Pulse Pulse Resp BP BP Pulse Ox 01/27/22 08:06 91 16 94 L 01/27/22 07:58 66 16 01/27/22 07:57 97.6 F 66 18 123/78 95 01/27/22 04:00 74 18 122/72 93 L 01/27/22 02:00 18 01/27/22 00:00 96.9 F L 85 18 164/83 93 L 01/26/22 20:00 97.9 F 83 18 126/74 92 L 01/26/22 17:30 86 19 107/71 95 01/26/22 17:00 78 15 104/68 95 01/26/22 16:30 80 15 99/64 94 L 01/26/22 16:00 84 20 104/72 94 L 01/26/22 15:30 87 21 106/73 93 L 01/26/22 15:00 87 21 124/84 94 L 01/26/22 14:30 87 21 100/79 93 L 01/26/22 14:00 88 20 86/69 94 L 01/26/22 13:57 98.7 F 89 18 118/81 01/26/22 13:30 88 15 106/83 94 L 01/26/22 12:44 98 F 87 16 118/81 Intake and Output 01/26/22 01/27/22 01/27/22 22:59 06:59 14:59 Intake Total 10 Balance 10 Intake: IV 10 Invasive Line 1 10 Other: Voiding Method External Catheter External Catheter External Catheter # Voids 0 Weight 98.43 kg 102 kg Results 01/27/22 07:21 01/27/22 07:21 Cardiac Enzymes 01/26/22 01/26/22 01/26/22 Range/Units 13:34 13:34 16:28 AST 17 (14-36) U/L Troponin I 0.051 H* 0.056 H* (0.000-0.034) ng/mL 01/26/22 Range/Units 18:57 AST (14-36) U/L Troponin I 0.055 H* (0.000-0.034) ng/mL Coagulation 01/26/22 Range/Units 13:34 PT 10.9 (9.0-12.0) sec APTT 26.3 (22.0-30.0) sec CBC 01/26/22 01/27/22 Range/Units 13:34 07:21 WBC 9.3 7.9 (3.8-10.6) k/uL RBC 4.04 3.88 (3.80-5.40) m/uL Hgb 12.3 11.8 (11.4-16.0) gm/dL Hct 38.0 37.2 (34.0-46.0) % Plt Count 335 306 (150-450) k/uL Comprehensive Metabolic Panel 01/26/22 01/27/22 Range/Units 13:34 07:21 Sodium 132 L 134 L (137-145) mmol/L Potassium 4.3 4.2 (3.5-5.1) mmol/L Chloride 89 L 93 L (98-107) mmol/L Carbon Dioxide 39 H 38 H (22-30) mmol/L BUN 30 H 24 H (7-17) mg/dL Creatinine 0.95 0.77 (0.52-1.04) mg/dL Glucose 90 88 (74-99) mg/dL Calcium 8.2 L 8.2 L (8.4-10.2) mg/dL AST 17 (14-36) U/L ALT 11 (4-34) U/L Alkaline Phosphatase 124 (38-126) U/L Total Protein 5.5 L (6.3-8.2) g/dL Albumin 3.1 L (3.5-5.0) g/dL Current Medications Generic Name Dose Route Start Last Admin Trade Name Freq PRN Reason Stop Dose Admin Hydrocodone Bitart/Acetaminophen 1 each 01/26/22 22:33 01/27/22 03:57 Hydrocodone/Apap 7.5-325mg 1 Each Tab PO 1 each Q6H PRN Administration Pain Albuterol Sulfate 2.5 mg 01/26/22 22:33 01/27/22 08:05 Albuterol Nebulized 2.5 Mg/3 Ml INHALATION 2.5 mg RT-QID PRN Administration Shortness Of Breath Allopurinol 100 mg 01/26/22 22:45 01/27/22 08:03 Allopurinol 100 Mg Tab PO 100 mg BID BRITNEY Administration Apixaban 5 mg 01/26/22 22:45 01/27/22 08:04 Apixaban 5 Mg Tab PO 5 mg BID BRITNEY Administration Protocol Aspirin 81 mg 01/26/22 22:45 01/26/22 23:31 Aspirin 81 Mg PO 81 mg HS BRITNEY Administration Azithromycin 500 mg 01/27/22 09:00 01/27/22 08:04 Azithromycin 500 Mg Tab PO 01/28/22 09:01 500 mg DAILY BRITNEY Administration Protocol Budesonide/Formoterol Fumarate 2 puff 01/27/22 08:00 01/27/22 08:04 Symbicort 160-4.5 Mcg Inhaler INHALATION 2 puff RT-BID BRITNEY Administration Bupropion HCl 100 mg 01/26/22 22:45 01/27/22 08:04 Bupropion Sr 100 Mg Tablet.Er PO 100 mg BID BRITNEY Administration Cholecalciferol 50 mcg 01/27/22 21:00 Cholecalciferol 25 Mcg (1000 Iu) Tablet PO HS BRITNEY Cyanocobalamin 1,000 mcg 01/27/22 21:00 Cyanocobalamin 500 Mcg Tab PO HS BRITNEY Doxazosin Mesylate 4 mg 01/26/22 22:45 01/26/22 23:31 Doxazosin 4 Mg Tab PO 4 mg HS BRITNEY Administration Furosemide 40 mg 01/27/22 09:00 01/27/22 08:04 Furosemide 40 Mg Tab PO 40 mg DAILY BRITNEY Administration Gabapentin 100 mg 01/26/22 22:45 01/27/22 08:04 Gabapentin 100 Mg Cap PO 100 mg TID BRITNEY Administration Ceftriaxone Sodium 2 gm/ 50 mls @ 100 mls/hr 01/27/22 09:00 Sodium Chloride IVPB 01/30/22 09:29 Q24HR [facility] Protocol Levothyroxine Sodium 125 mcg 01/27/22 06:30 01/27/22 06:35 Levothyroxine 125 Mcg Tab PO 125 mcg DAILY@0630 BRITNEY Administration Miscellaneous Information 1 each 01/26/22 15:07 Pneumonia Protocol Utilized 1 Each Misc PO ONCE PRN Per Protocol Montelukast Sodium 10 mg 01/27/22 09:00 01/27/22 08:03 Montelukast 10 Mg Tab PO 10 mg DAILY BRITNEY Administration Pantoprazole Sodium 40 mg 01/27/22 09:00 01/27/22 08:03 Pantoprazole 40 Mg Tablet PO 40 mg BID BRITNEY Administration Pravastatin Sodium 40 mg 01/26/22 22:45 01/26/22 23:31 Pravastatin Sodium 40 Mg Tab PO 40 mg HS BRITNEY Administration Spironolactone 25 mg 01/27/22 09:00 01/27/22 08:04 Spironolactone 25 Mg Tab PO 25 mg DAILY BRITNEY Administration Intake and Output 01/26/22 01/27/22 01/27/22 22:59 06:59 14:59 Intake Total 10 Balance 10 Intake: IV 10 Invasive Line 1 10 Other: Voiding Method External Catheter External Catheter External Catheter # Voids 0 Weight 98.43 kg 102 kg 01/27/22 07:21 01/27/22 07:21
[2022-01-27] MEDS ORDERED: HYDROcodone/APAP 10-325MG 1 EACH TAB PO PRN (18:34)
[2022-01-27] MEDS ORDERED: polyethylene glycoL 3350 17 GM POWD.PACK PO PRN (18:35)
[2022-01-27] MEDS ORDERED: MORPHINE SULFATE 2 MG/ML SYRINGE IVP PRN (18:36)
--- NOTE | 2022-01-27 19:05 | P.CONS ---
History of Present Illness - Reason for Consult Consult date: 01/27/22 lung mass Requesting physician: Akshat Garcia - Chief Complaint weakness - History of Present Illness Ms. Resendiz is a pleasant female patient of Dr. Nam, diagnosed with right upper lobe lung cancer in 2005, treated with right upper lobectomy at [facility]. She received adjuvant chemotherapy. She remained on follow-up. At a planned follow-up 07/2019 ultrasound of the parathyroid was done, a thrombus in the jugular vein was detected, this led to a CT of the chest which revealed a 1.6 cm spiculated nodule in the left upper lobe in addition to several other sm all nodules in the bilateral lungs. PET 08/31/19 revealed suspicious uptake in the left upper lobe nodule. Recommendation was for monitoring as the site was too difficult to biopsy and the patient does has severe COPD. Repeat CT 12/10, stable. February 2020 increase in size to 1.4 cm. 03/21/20 PET showed slight uptake compared to prior. Patient was treated with SBRT. On 12/28/2021 she had disectomy of cervical spine at [facility] with Dr. Sanchez, no biopsies were taken. MRI of T spine showed osseous lesions at T1 and T2, L spine was negative. Bone scan revealed uptake in bilateral humerous and T1 and T2. CT CAP revealed progression of LORY lung lesion and additional RLL nodules, borderline enlarged mediastinal nodes. Post op she was diagnosed with DVT in the left upper extremity and right lower extremity, started on eliquis. Her inability to move the left arm has been going on for some time. She is reporting now that the pain in the arms become unbearable, she is fearful of anyone even touching it. Denies neuropathic type pain such as numbness, tingling. Patient was last seen in the office 01/11/22. Dr. Nam discussed with the patient and her family that all of the evidence is highly suggestive of metastatic lung cancer. It is not clear if the extremity pain is related to metastatic disease or from the radiculopathy from recent surgery. Plan was to obtain a PET, that is scheduled for 01/29. Patient was on [place] at that visit. Gabapentin was added. As patient sits in bed she states that she does not understand how she is supposed to function with this severe pain. Review of Systems 10 point review of systems is negative except as stated in HPI Past Medical History Past Medical History: Cancer, GERD/Reflux, Hyperlipidemia, Hypertension, Pneumonia Additional Past Medical History / Comment(s): lung cancer History of Any Multi-Drug Resistant Organisms: None Reported Past Surgical History: Joint Replacement Additional Past Surgical History / Comment(s): right upper lobe removal from lung cancer 2005, bilat knee, R shoulder Past Anesthesia/Blood Transfusion Reactions: No Reported Reaction Past Psychological History: No Psychological Hx Reported Past Alcohol Use History: Occasional Past Drug Use History: None Reported Medications and Allergies Home Medications Medication Instructions Recorded Confirmed Type Albuterol Inhaler [Ventolin Hfa 2 puff INHALATION RT-QID PRN 08/23/19 01/26/22 History Inhaler] Apixaban [Eliquis] 5 mg PO BID 08/23/19 01/26/22 History Aspirin EC [Ecotrin Low Dose] 81 mg PO HS 08/23/19 01/26/22 History Budesonide/Formoterol Fumarate 2 puff INHALATION RT-BID 08/23/19 01/26/22 Hist ory [Symbicort 160-4.5 Mcg Inhaler] Cyanocobalamin (Vitamin B-12) 1,000 mcg PO HS 08/23/19 01/26/22 History [Vitamin B-12] Doxazosin [Cardura] 4 mg PO HS 08/23/19 01/26/22 History Montelukast Sodium [Singulair] 10 mg PO DAILY 08/23/19 01/26/22 History Omeprazole [PriLOSEC] 20 mg PO BID 08/23/19 01/26/22 History Pravastatin Sodium [Pravachol] 40 mg PO HS 08/23/19 01/26/22 History Tolterodine ER [Detrol LA] 4 mg PO DAILY 08/23/19 01/26/22 History Umeclidinium [place] [Incruse 1 puff INHALATION RT-DAILY 08/23/19 01/26/22 History Ellipta] Vit C/E/Zn/Coppr/Lutein/Zeaxan 2 cap PO HS 08/23/19 01/26/22 History [Preservision Areds 2 Softgel] allopurinoL [Zyloprim] 100 mg PO BID 08/23/19 01/26/22 History Cholecalciferol [Vitamin D3 (25 50 mcg PO HS 01/26/22 01/26/22 History Mcg = 1000 Iu)] Furosemide [Lasix] 40 mg PO DAILY 01/26/22 01/26/22 History Gabapentin [Neurontin] 100 mg PO TID 01/26/22 01/26/22 History Hydrocodone/Acetaminophen 1 tab PO Q6H PRN 01/26/22 01/26/22 History [Hydrocodone/Acetaminophen 7.5-325] Levothyroxine Sodium [Synthroid] 125 mcg PO DAILY 01/26/22 01/26/22 History Spironolactone [Aldactone] 25 mg PO DAILY 01/26/22 01/26/22 History buPROPion HCL [buPROPion HCL SR] 100 mg PO BID 01/26/22 01/26/22 History Allergies Allergy/AdvReac Type Severity Reaction Status Date / Time amlodipine Allergy Swelling Verified 01/26/22 15:12 atorvastatin Allergy Unknown Verified 01/26/22 15:12 meperidine [From Demerol] Allergy Nausea & Verified 01/26/22 15:12 Vomiting Physical Exam Vitals: Vital Signs Temp Pulse Pulse Resp BP BP Pulse Ox 01/27/22 08:16 90 16 01/27/22 08:06 91 16 94 L 01/27/22 07:58 66 16 01/27/22 07:57 97.6 F 66 18 123/78 95 01/27/22 04:00 74 18 122/72 93 L 01/27/22 02:00 18 01/27/22 00:00 96.9 F L 85 18 164/83 93 L 01/26/22 20:00 97.9 F 83 18 126/74 92 L 01/26/22 17:30 86 19 107/71 95 01/26/22 17:00 78 15 104/68 95 01/26/22 16:30 80 15 99/64 94 L 01/26/22 16:00 84 20 104/72 94 L 01/26/22 15:30 87 21 106/73 93 L 01/26/22 15:00 87 21 124/84 94 L 01/26/22 14:30 87 21 100/79 93 L 01/26/22 14:00 88 20 86/69 94 L 01/26/22 13:57 98.7 F 89 18 118/81 01/26/22 13:30 88 15 106/83 94 L 01/26/22 12:44 98 F 87 16 118/81 Intake and Output 01/26/22 01/27/22 01/27/22 22:59 06:59 14:59 Intake Total 10 Balance 10 Intake: IV 10 Invasive Line 1 10 Other: Voiding Method External Catheter External Catheter External Catheter # Voids 0 Weight 98.43 kg 102 kg - Constitutional General appearance: average body habitus, severe distress - EENT Eyes: anicteric sclerae, EOMI ENT: hearing grossly normal - Neck Patient is in a neck brace status post cervical surgery - Respiratory Respiratory: bilateral: CTA, diminished - Cardiovascular Rhythm: regular Heart sounds: normal: S1, S2 Abnormal Heart Sounds: systolic murmur leg Peripheral Edema: bilateral: 1+ - Gastrointestinal General gastrointestinal: normal bowel sounds, soft - Integumentary Integumentary: normal - Neurologic Neurologic: CNII-XII intact (Closely) - Musculoskeletal Left upper extremity severely swollen, Patient will not let you near her left upper extremity, She cannot lift extremity on her own Musculoskeletal: generalized weakness - Psychiatric Psychiatric: A&O x's 3, appropriate affect, intact judgment & insight Results CBC & Chem 7: 01/27/22 07:21 01/27/22 07:21 Labs: Abnormal Lab Results - Last 24 Hours (Table) 01/26/22 01/26/22 01/26/22 Range/Units 13:34 13:34 13:34 Lymphocytes # 0.9 L (1.0-4.8) k/uL Sodium 132 L (137-145) mmol/L Chloride 89 L (98-107) mmol/L Carbon Dioxide 39 H (22-30) mmol/L BUN 30 H (7-17) mg/dL Plasma Lactic Acid Ruben (0.7-2.0) mmol/L Calcium 8.2 L (8.4-10.2) mg/dL Troponin I (0.000-0.034) ng/mL Total Protein 5.5 L (6.3-8.2) g/dL Albumin 3.1 L (3.5-5.0) g/dL Urine Appearance Cloudy H (Clear) Urine Blood Large H (Negative) Ur Leukocyte Esterase Moderate H (Negative) Urine RBC 30 H (0-5) /hpf Urine WBC 14 H (0-5) /hpf Amorphous Sediment Rare H (None) /hpf Urine Bacteria Many H (None) /hpf Urine Mucus Rare H (None) /hpf 01/26/22 01/26/22 01/26/22 Range/Units 13:34 14:52 16:28 Lymphocytes # (1.0-4.8) k/uL Sodium (137-145) mmol/L Chloride (98-107) mmol/L Carbon Dioxide (22-30) mmol/L BUN (7-17) mg/dL Plasma Lactic Acid Ruben 0.6 L (0.7-2.0) mmol/L Calcium (8.4-10.2) mg/dL Troponin I 0.051 H* 0.056 H* (0.000-0.034) ng/mL Total Protein (6.3-8.2) g/dL Albumin (3.5-5.0) g/dL Urine Appearance (Clear) Urine Blood (Negative) Ur Leukocyte Esterase (Negative) Urine RBC (0-5) /hpf Urine WBC (0-5) /hpf Amorphous Sediment (None) /hpf Urine Bacteria (None) /hpf Urine Mucus (None) /hpf 01/26/22 01/27/22 Range/Units 18:57 07:21 Lymphocytes # (1.0-4.8) k/uL Sodium 134 L (137-145) mmol/L Chloride 93 L (98-107) mmol/L Carbon Dioxide 38 H (22-30) mmol/L BUN 24 H (7-17) mg/dL Plasma Lactic Acid Ruben (0.7-2.0) mmol/L Calcium 8.2 L (8.4-10.2) mg/dL Troponin I 0.055 H* (0.000-0.034) ng/mL Total Protein (6.3-8.2) g/dL Albumin (3.5-5.0) g/dL Urine Appearance (Clear) Urine Blood (Negative) Ur Leukocyte Esterase (Negative) Urine RBC (0-5) /hpf Urine WBC (0-5) /hpf Amorphous Sediment (None) /hpf Urine Bacteria (None) /hpf Urine Mucus (None) /hpf Microbiology - Last 24 Hours (Table) 01/26/22 13:34 Urine Culture - Preliminary Urine,Voided Assessment and Plan (1) DVT (deep venous thrombosis) Current Visit: Yes Status: Acute Priority: High Code(s): I82.409 - ACUTE EMBOLISM AND THOMBOS UNSP DEEP VN UNSP LOWER EXTREMITY SNOMED Code(s): 927634877 (2) Adenocarcinoma, lung Current Visit: Yes Status: Acute Priority: High Code(s): C34.90 - MALIGNANT NEOPLASM OF UNSP PART OF UNSP BRONCHUS OR LUNG SNOMED Code(s): 966954673 Plan: Patient is on eliquis for recently diagnosed left upper extremity DVT and right lower extremity DVT. Will get Doppler of the left lower extremity for baseline. Patient does have a history of lung cancer. Over the last 2 months she has evidence of disease progression on imaging, plans were for PET scan to determine extent. PET scan is scheduled for 01/29. Explained to patient that unfortunately PET scans cannot be done while inpatient. Patient's biggest complaint is pain. Did make some adjustments to pain medications. We will see if we get patient's pain under control so she can be discharged to get the PET scan. Will try to get ahold of Dr. Sanchez. Pt patient states she Was told she cannot take steroids, was hoping to use as a possible anti-inflammatory. May consider Radiation Oncology assessment to see if she would qualify for any radiation to the humerus. Will see how patient is doing in the a.m. first. attests: I have seen and examined patient, performed H&P, developed impression and plan of care. Discussed with dictator. Agree with doc john, dictated as a scribe Time with Patient: Greater than 30
--- NOTE | 2022-01-27 19:56 | US ---
EXAMINATION TYPE: US venous doppler duplex LE DATE OF EXAM: 01/27/2022 7:44 PM COMPARISON: NONE CLINICAL HISTORY: RLE DVT, need baseline. Patient states she was at [facility] 3 weeks ago and they d iagnosed her with a DVT. Pt states she is on blood thinners SIDE PERFORMED: Bilateral TECHNIQUE: The lower extremity deep venous system is examined utilizing real time linear array sonog junaid with graded compression, doppler sonography and color-flow sonography. VESSELS IMAGED: Common Femoral Vein Deep Femoral Vein Greater Saphenous Vein * Femoral Vein Popliteal Vein Small Saphenous Vein * Proximal Calf Veins (* superficial vessels) Right Leg: Negative for DVT Left Leg: Echoes seen in mid femoral vein, but vein compressed. Possible chronic DVT. IMPRESSION: There is evidence for some mild chronic deep vein thrombosis in the left femoral vein. No evidence of deep vein thrombosis in the right leg.
[2022-01-27] MEDS: PRAVASTATIN SODIUM 40 MG TAB PO SCH (22:05)
[2022-01-27] MEDS: ASPIRIN 81 MG PO SCH (22:05)
[2022-01-27] MEDS: CYANOCOBALAMIN 500 MCG TAB PO SCH (22:05)
[2022-01-27] MEDS: CHOLECALCIFEROL 25 MCG (1000 IU) TABLET PO SCH (22:05)
[2022-01-27] MEDS: DOXAZOSIN 4 MG TAB PO SCH (22:06)
[2022-01-27] MEDS: SENNOSIDES-DOCUSATE SODIUM 1 EACH TAB PO SCH (22:06)
[2022-01-28] MEDS: LEVOTHYROXINE 125 MCG TAB PO SCH (05:33)
[2022-01-28] MEDS: ALBUTEROL NEBULIZED 2.5 MG/3 ML INHALATION PRN ×4 (07:50→19:54)
[2022-01-28] MEDS: SYMBICORT 160-4.5 MCG INHALER INHALATION SCH ×2 (07:50→19:54)
[2022-01-28 09:00] LABS: African American GFR (CKD) >90 (>60 ml/min/1.73 sqM); Anion Gap 5 mmol/L; Blood Urea Nitrogen 18 mg/dL (7-17); Calcium 8.6 mg/dL (8.4-10.2); Carbon Dioxide 38 mmol/L (22-30); Chloride 93 mmol/L (98-107); Glucose 117 mg/dL (74-99); Non-African American GFR(CKD) 81 (>60 ml/min/1.73 sqM); Potassium 4.7 mmol/L (3.5-5.1); Sodium 136 mmol/L (137-145)
[2022-01-28] MEDS: buPROPion SR 100 MG TABLET.ER PO SCH ×2 (09:03→23:30)
[2022-01-28] MEDS: APIXABAN 5 MG TAB PO SCH ×2 (09:03→20:12)
[2022-01-28] MEDS: PANTOPRAZOLE 40 MG TABLET PO SCH ×2 (09:03→20:13)
[2022-01-28] MEDS: SPIRONOLACTONE 25 MG TAB PO SCH (09:03)
[2022-01-28] MEDS: FUROSEMIDE 40 MG TAB PO SCH (09:03)
[2022-01-28] MEDS: AZITHROMYCIN 500 MG TAB PO SCH (09:03)
[2022-01-28] MEDS: MONTELUKAST 10 MG TAB PO SCH (09:03)
[2022-01-28] MEDS: allopurinoL 100 MG TAB PO SCH ×2 (09:03→20:13)
[2022-01-28] MEDS: GABAPENTIN 100 MG CAP PO SCH ×3 (09:03→20:13)
[2022-01-28] MEDS: SENNOSIDES-DOCUSATE SODIUM 1 EACH TAB PO SCH ×2 (11:19→20:12)
[2022-01-28] MEDS: MORPHINE SULFATE 4 MG/ML SYRINGE IVP PRN ×4 (11:20→23:30)
--- NOTE | 2022-01-28 11:30 | P.PN ---
Subjective This is a pleasant 81- year-old female past medical history significant for hypertension, DVT on Eliquis, dyslipidemia, GERD, lung cancer (Sees Dr. Nam) She follows in the office with Dr. Bourgeois. We have been asked to see in consultation for elevated troponin. Patient presents to the ER with complaints of generalized weakness. She states she had cervical spine surgery in December and have been progressively weaker in her bilateral legs and her left arm. These symptoms of left arm began in October. She is being worked up and plan for possible PET scan to evaluate. She denies any chest pain, shortness of breath, lightheadedness, dizziness, syncope or near syncope, palpitations, symptoms of orthopnea or PND. She has no known history of CAD, [place], Stroke, diabetes. She states she sees Dr. Bourgeois mostly for her blood pressure. She states she recently had a normal stress test and echocardiogram at [facility]. There was concern for pneumonia and patient was started on antibiotics DIAGNOSTICS * Echocardiogram at [facility] in 12/19/2021 revealed an EF of 6065 percent, no regional wall motion abnormalities. 01/28/2022 Patient seen and examined at bedside, she continues to have generalized weakness. She denies any chest pain, shortness of breath. Echocardiogram from [facility] reviewed. No stress test sent. Records from her [facility] are still pending. oncology is following the patient, plan for PET scan outpatient PHYSICAL EXAMINATION Vitals reviewed CONSTITUTIONAL: No apparent distress. HEENT: Head is normocephalic. Neck Supple. No JVD. No carotid bruit. CHEST EXAMINATION: Lungs are diminished bilaterally to auscultation. No chest wall tenderness is noted on palpation or with deep breathing. HEART EXAMINATION: Regular rate and rhythm. S1, S2 heard. No murmurs, gallops or rub. ABDOMEN: Soft, nontender. Positive bowel sounds. EXTREMITIES: 2+ peripheral pulses, 2-3+ bilateral lower extremity edema and no calf tenderness. NEUROLOGIC EXAMINATION: Patient is awake, alert and oriented x3. ASSESSMENT Elevated troponin, not consistent with acute coronary syndrome, no ischemic changes on EKG patient without chest pain Possible pneumonia History of DVT on Eliquis History of Hypertension Dyslipidemia GERD History of lung cancer, follows with Dr. Nam PLAN Recent echocardiogram reviewed from [facility] with EF 60-65%, no significant wall motion or valvular abnormalities Unable to obtain records from recent stress test from [facility] or the patient's [facility] office No further changes from a cardiology perspective Continue home cardiac medications Rest of management per primary Nurse practitioner note has been reviewed by physician. Signing provider agrees with the documented findings, assessment, and plan of care. Objective - Vital Signs Vital signs: Vital Signs Temp 98.2 F 01/28/22 04:00 Pulse 75 01/28/22 08:00 Resp 16 01/28/22 04:00 BP 128/79 01/28/22 04:00 Pulse Ox 99 01/28/22 07:51 FiO2 Intake & Output 01/27/22 01/28/22 01/28/22 18:59 06:59 18:59 Intake Total 944 20 118 Output Total 1950 1600 Balance -1006 -1580 118 Intake: IV 20 20 Invasive Line 1 20 20 Oral 924 118 Output: Urine 1950 1600 Other: Voiding Method External Catheter External Catheter - Labs CBC & Chem 7: 01/27/22 07:21 01/28/22 07:38 Labs: Abnormal Lab Results - Last 24 Hours (Table) 01/28/22 Range/Units 07:38 Sodium 136 L (137-145) mmol/L Chloride 93 L (98-107) mmol/L Carbon Dioxide 38 H (22-30) mmol/L BUN 18 H (7-17) mg/dL Glucose 117 H (74-99) mg/dL Microbiology - Last 24 Hours (Table) 01/26/22 15:10 Blood Culture - Preliminary Blood No Growth after 24 hours 01/26/22 15:25 Blood Culture - Preliminary Blood No Growth after 24 hours 01/26/22 13:34 Urine Culture - Final Urine,Voided
--- NOTE | 2022-01-28 12:48 | P.PN ---
Subjective Progress Note Date: 01/28/22 Principal diagnosis: Intractable pain, elevated troponins In f/u today pt looks more comfortable. Her KARON pain and swelling is little better. No chest pain, SOB, new cough. Objective - Vital Signs Vital signs: Vital Signs Temp 97.9 F 01/28/22 08:00 Pulse 80 01/28/22 12:15 Resp 18 01/28/22 08:00 BP 144/85 01/28/22 08:00 Pulse Ox 95 01/28/22 08:00 FiO2 Intake & Output 01/27/22 01/28/22 01/28/22 18:59 06:59 18:59 Intake Total 944 20 118 Output Total 1950 1600 Balance -1006 -1580 118 Intake: IV 20 20 Invasive Line 1 20 20 Oral 924 118 Output: Urine 1950 1600 Other: Voiding Method External Catheter External Catheter External Catheter - Constitutional General appearance: Present: cooperative, no acute distress, obese - EENT Eyes: Present: anicteric sclerae, EOMI ENT: Present: hearing grossly normal - Respiratory Details: resp even and unlabored - Peripheral edema leg Peripheral Edema: right: 1+, left: Trace - Neurologic Neurologic Comment(s): LUE weakness, moving hand today, swelling is decreased slightly, 3+, less pitting, pain little better as pt is not guarding arm or pushing away when trying to touch Neurologic: Present: CNII-XII intact (grossly) - Psychiatric Psychiatric: Present: A&O x's 3, appropriate affect, intact judgment & insight - Labs CBC & Chem 7: 01/27/22 07:21 01/28/22 07:38 Labs: Abnormal Lab Results - Last 24 Hours (Table) 01/28/22 Range/Units 07:38 Sodium 136 L (137-145) mmol/L Chloride 93 L (98-107) mmol/L Carbon Dioxide 38 H (22-30) mmol/L BUN 18 H (7-17) mg/dL Glucose 117 H (74-99) mg/dL Microbiology - Last 24 Hours (Table) 01/26/22 15:10 Blood Culture - Preliminary Blood No Growth after 24 hours 01/26/22 15:25 Blood Culture - Preliminary Blood No Growth after 24 hours 01/26/22 13:34 Urine Culture - Final Urine,Voided - Imaging and Cardiology Venous US: report reviewed Assessment and Plan (1) DVT (deep venous thrombosis) Current Visit: Yes Status: Acute Priority: High Code(s): I82.409 - ACUTE EMBOLISM AND THOMBOS UNSP DEEP VN UNSP LOWER EXTREMITY SNOMED Code(s): 233688506 (2) Adenocarcinoma, lung Current Visit: Yes Status: Acute Priority: High Code(s): C34.90 - MALIGNANT NEOPLASM OF UNSP PART OF UNSP BRONCHUS OR LUNG SNOMED Code(s): 768818952 Plan: Patient is on eliquis for recently diagnosed left upper extremity DVT and right lower extremity DVT. BLE doppler was done, no clot in RLE, chronic DVT in LLE seen. Patient does have a history of lung cancer. Over the last 2 months she has evidence of disease progression on imaging, plans were for PET scan to determine extent. PET scan is scheduled for 01/29. Explained to patient that unfortunately PET scans cannot be done while inpatient. This will have to be rescheduled. Radiculopathy, s/p anterior access fusion of C4 & 5, C6 & 7. Pain is in LUE. Pain meds adjusted yesterday. Still c/o pain, only slightly better. Further adjustments to pain medications. Did speak to Dr. Sanchez's ofc staff. Steroids can delay grafting but, he did say they could be used to try and help pain and swelling. There were no biopsies done during surgery. Pt will need PET scan. She will need a biopsy. This will be planned outpt LUE swelling is a little better. Have asked for gentle compression whitney wrap Will have pt see Radiation Oncology outpt for assessment. Discussed case with IM attests: I have seen and examined patient, performed H&P, developed impression and plan of care. Discussed with dictator. Agree with documentation, dictated as a scribe
--- NOTE | 2022-01-28 14:52 | P.CNPUL ---
History of Present Illness Consult date: 01/28/22 Requesting physician: Segundo Armenta Reason for consult: COPD, abnormal CXR/CT Chief complaint: Left arm pain, swelling, and immobility. History of present illness: Pulmonary consult dated 01/28/2022. 81-year-old female who presented to the emergency department, via EMS, on January 26, complaining of generalized weakness. In addition, the patient had recent cervical spine surgery, at level C3 through C7, December 28, at [facility]. The patient states that her left arm pain, and swelling, as well as lack of mobility, preceded the surgery. She had the surgery hoping that he woul d help to improve the left upper extremity. Unfortunately it has not. She denies any difficulty breathing, coughing, wheezing, or phlegm production. No abdominal pain, nausea, vomiting, or diarrhea. No chest pain. No urinary complaints. The patient does have a history of lung cancer, GERD, hyp erlipidemia, hypertension, and pneumonia. She's had a previous right upper lobectomy, 2005 for her lung cancer. In addition, she has a nodule in the left upper lobe, thought to possibly be lung cancer as well. Lab data from January 27 and January show white count of 7.9, hemoglobin 11.8, hematocrit 37.2, and platelet count 306,000. Sodium 136, potassium 4.7, chlorides 93, CO2 38, BUN 18, creatinine 0.7 and anion gap is 5. Testing for coronavirus was negative. The patient's currently not on any IV fluids. The patient is on 3 L of oxygen. The left upper lobe pulmonary nodule is being followed with serial CT scanning. The most recent computed tomography scan showed that the nodule was stable in size. Because of a abnormal PET scan of the nodule, the patient was treated with stereotactic body radiotherapy (SBRT). Review of Systems REVIEW OF SYSTEMS: CONSTITUTIONAL: Weakness, with swelling, pain, and immobility of the left upper extremity. NEUROLOGIC: Recent C3-C7 cervical surgery 12/28/2021 HEENT: [ Negative.] CARDIAC: [Negative.] PULMONARY: COPD, severe. GI: [Negative.] : [Negative.] RHEUMATOLOGIC: [ Negative.] IMMUNOLOGIC: [ Negative.] ENDOCRINE: [Negative. ] DERMATOLOGIC: [Negative.] Past Medical History Past Medical History: Cancer, GERD/Reflux, Hyperlipidemia, Hypertension, Pneumonia Additional Past Medical History / Comment(s): lung cancer History of Any Multi-Drug Resistant Organisms: None Reported Past Surgical History: Joint Replacement Additional Past Surgical History / Comment(s): right upper lobe removal from lung cancer 2006, bilat knee, R shoulder Past Anesthesia/Blood Transfusion Reactions: No Reported Reaction Past Psychological History: No Psychological Hx Reported Past Alcohol Use History: Occasional Past Drug Use History: None Reported Medications and Allergies Home Medications Medication Instructions Recorded Confirmed Type Albuterol Inhaler [Ventolin Hfa 2 puff INHALATION RT-QID PRN 08/23/19 01/26/22 History Inhaler] Apixaban [Eliquis] 5 mg PO BID 08/23/19 01/26/22 History Aspirin EC [Ecotrin Low Dose] 81 mg PO HS 08/23/19 01/26/22 History Budesonide/Formoterol Fumarate 2 puff INHALATION RT-BID 08/23/19 01/26/22 History [Symbicort 160-4.5 Mcg Inhaler] Cyanocobalamin (Vitamin B-12) 1,000 mcg PO HS 08/23/19 01/26/22 History [Vitamin B-12] Doxazosin [Cardura] 4 mg PO HS 08/23/19 01/26/22 History Montelukast Sodium [Singulair] 10 mg PO DAILY 08/23/19 01/26/22 History Omeprazole [PriLOSEC] 20 mg PO BID 08/23/19 01/26/22 History Pravastatin Sodium [Pravachol] 40 mg PO HS 08/23/19 01/26/22 History Tolterodine ER [Detrol LA] 4 mg PO DAILY 08/23/19 01/26/22 History Umeclidinium Webster [Incruse 1 puff INHALATION RT-DAILY 08/23/19 01/26/22 History Ellipta] Vit C/E/Zn/Coppr/Lutein/Zeaxan 2 cap PO HS 08/23/19 01/26/22 History [Preservision Areds 2 Softgel] allopurinoL [Zyloprim] 100 mg PO BID 08/23/19 01/26/22 History Cholecalciferol [Vitamin D3 (25 50 mcg PO HS 01/26/22 01/26/22 History Mcg = 1000 Iu)] Furosemide [Lasix] 40 mg PO DAILY 01/26/22 01/26/22 History Gabapentin [Neurontin] 100 mg PO TID 01/26/22 01/26/22 History Hydrocodone/Acetaminophen 1 tab PO Q6H PRN 01/26/22 01/26/22 History [Hydrocodone/Acetaminophen 7.5-325] Levothyroxine Sodium [Synthroid] 125 mcg PO DAILY 01/26/22 01/26/22 History Spironolactone [Aldactone] 25 mg PO DAILY 01/26/22 01/26/22 History buPROPion HCL [buPROPion HCL SR] 100 mg PO BID 01/26/22 01/26/22 History Allergies Allergy/AdvReac Type Severity Reaction Status Date / Time amlodipine Allergy Swelling Verified 01/26/22 15:12 atorvastatin Allergy Unknown Verified 01/26/22 15:12 meperidine [From Demerol] Allergy Nausea & Verified 01/26/22 15:12 Vomiting Physical Exam Osteopathic Statement: *. No significant issues noted on an osteopathic structural exam other than those noted in the History and Physical/Consult. Vitals: Vital Signs Temp Pulse Pulse Resp BP Pulse Ox 01/28/22 12:15 80 01/28/22 12:03 78 01/28/22 12:00 98.0 F 83 18 131/81 95 01/28/22 08:00 97.9 F 75 77 18 144/85 95 01/28/22 07:51 77 99 01/28/22 04:00 98.2 F 74 16 128/79 97 01/28/22 02:00 82 18 01/27/22 23:44 98.1 F 82 18 126/77 97 01/27/22 20:46 76 01/27/22 20:33 68 01/27/22 20:00 98.0 F 83 18 130/79 95 01/27/22 16:34 77 18 01/27/22 16:21 78 18 01/27/22 15:42 97.6 F 78 18 114/78 95 Intake and Output 01/27/22 01/28/22 01/28/22 22:59 06:59 14:59 Intake Total 128 10 358 Output Total 550 1600 600 Balance -422 -7204 -242 Intake: IV 10 10 Invasive Line 1 10 10 Oral 118 358 Output: Urine 550 1600 600 Other: Voiding Method External Catheter External Catheter External Catheter No acute distress, oriented 3. Currently on 2 L. This is her home dose. No respiratory difficulty or distress. No use of accessory muscles or conversational dyspnea. HEENT examination is grossly unremarkable. Neck supple. Full range of motion. No adenopathy thyromegaly or neck vein distention. Cervical collar in place. Cardiovascular examination reveals regular rhythm rate. S1-S2 normal. No S3 or S4. No discernible murmur noted. Heart rate 80 bpm. Lungs reveal mostly clear breath sounds. Minimal rhonchi. No wheezes or crackles. Breath sounds equal bilaterally. Saturations are 95%. Abdomen soft bowel sounds are heard. No masses or tenderness. Extremities reveal a very painful, swollen left upper extremity. She could hardly move it. The rest of the extremities appear normal. Skin is without rash or lesion. Neurologic examination is brief but nonfocal. Results - Laboratory Findings CBC and BMP: 01/27/22 07:21 01/28/22 07:38 PT/INR, D-dimer PT 10.9 sec (9.0-12.0) 01/26/22 13:34 INR 1.0 (<1.2) 01/26/22 13:34 Abnormal lab findings: Abnormal Labs 01/26/22 01/26/22 01/26/22 13:34 13:34 13:34 Lymphocytes # 0.9 L Sodium 132 L Chloride 89 L Carbon Dioxide 39 H BUN 30 H Glucose Plasma Lactic Acid Ruben Calcium 8.2 L Troponin I Total Protein 5.5 L Albumin 3.1 L Urine Appearance Cloudy H Urine Blood Large H Ur Leukocyte Esterase Moderate H Urine RBC 30 H Urine WBC 14 H Amorphous Sediment Rare H Urine Bacteria Many H Urine Mucus Rare H 01/26/22 01/26/22 01/26/22 13:34 14:52 16:28 Lymphocytes # Sodium Chloride Carbon Dioxide BUN Glucose Plasma Lactic Acid Ruben 0.6 L Calcium Troponin I 0.051 H* 0.056 H* Total Protein Albumin Urine Appearance Urine Blood Ur Leukocyte Esterase Urine RBC Urine WBC Amorphous Sediment Urine Bacteria Urine Mucus 01/26/22 01/27/22 01/28/22 18:57 07:21 07:38 Lymphocytes # Sodium 134 L 136 L Chloride 93 L 93 L Carbon Dioxide 38 H 38 H BUN 24 H 18 H Glucose 117 H Plasma Lactic Acid Ruben Calcium 8.2 L Troponin I 0.055 H* Total Protein Albumin Urine Appearance Urine Blood Ur Leukocyte Esterase Urine RBC Urine WBC Amorphous Sediment Urine Bacteria Urine Mucus - Diagnostic Findings Chest x-ray: image reviewed U/S of Legs: image reviewed Assessment and Plan Assessment: Left upper extremity DVT, with pain, swelling, and immobility of the extremity. Multiple osseous lesions, consistent with metastatic lung cancer. Recent C3-C7 surgery, 12/28/2021 at [facility]. History of severe oxygen-dependent COPD. Right upper lobectomy, for non-small cell lung cancer, 2005. FDG avid 1.4 cm lesion left upper lobe, status post SBRT. Right lower extremity DVT. History of hyperlipidemia. History of hypertension. History of gastroesophageal reflux disease. Plan: Plan 01/28/2022. The patient is not having much in the way pulmonary issues. He was not admitted for a COPD exacerbation. She is not having any fever or chills. Breathing is stable. She does cough occasionally, and produces a small amount of phlegm. Nothing to really suggest active pneumonia or respiratory infection. I will check a pro-calcitonin level. If it is normal, the antibiotics can be discontinued, unless there is another source of infection. Additional recommendations and suggestions are forthcoming. Time with Patient: Greater than 30
[2022-01-28] MEDS: DEXAMETHASONE SOD PHOSPHATE 4 MG/ML 1 ML VIAL IVP SCH ×2 (15:24→20:13)
[2022-01-28] MEDS: ASPIRIN 81 MG PO SCH (20:12)
[2022-01-28] MEDS: CYANOCOBALAMIN 500 MCG TAB PO SCH (20:12)
[2022-01-28] MEDS: CHOLECALCIFEROL 25 MCG (1000 IU) TABLET PO SCH (20:12)
[2022-01-28] MEDS: PRAVASTATIN SODIUM 40 MG TAB PO SCH (20:13)
[2022-01-28] MEDS: DOXAZOSIN 4 MG TAB PO SCH (20:13)
[2022-01-29] MEDS: LEVOTHYROXINE 125 MCG TAB PO SCH (05:44)
[2022-01-29] MEDS: MORPHINE SULFATE 4 MG/ML SYRINGE IVP PRN ×4 (05:44→21:53)
[2022-01-29] MEDS: SPIRONOLACTONE 25 MG TAB PO SCH (08:18)
[2022-01-29] MEDS: PANTOPRAZOLE 40 MG TABLET PO SCH ×2 (08:18→21:49)
[2022-01-29] MEDS: GABAPENTIN 100 MG CAP PO SCH ×3 (08:18→21:48)
[2022-01-29] MEDS: APIXABAN 5 MG TAB PO SCH ×2 (08:18→21:48)
[2022-01-29] MEDS: allopurinoL 100 MG TAB PO SCH ×2 (08:18→21:49)
[2022-01-29] MEDS: DEXAMETHASONE SOD PHOSPHATE 4 MG/ML 1 ML VIAL IVP SCH ×3 (08:19→21:48)
[2022-01-29] MEDS: FUROSEMIDE 40 MG TAB PO SCH (08:19)
[2022-01-29] MEDS: SENNOSIDES-DOCUSATE SODIUM 1 EACH TAB PO SCH ×2 (08:19→21:49)
[2022-01-29] MEDS: MONTELUKAST 10 MG TAB PO SCH (08:19)
[2022-01-29] MEDS: SYMBICORT 160-4.5 MCG INHALER INHALATION SCH ×2 (08:32→20:15)
[2022-01-29] MEDS: ALBUTEROL NEBULIZED 2.5 MG/3 ML INHALATION PRN ×4 (08:32→20:15)
[2022-01-29 09:41] LABS: Calcium 8.8 mg/dL (8.4-10.2); Potassium 4.9 mmol/L (3.5-5.1)
[2022-01-29 09:45] LABS: Basophils % (A) 0 %; Eosinophils % (A) 0 %; HCT 38.3 % (34.0-46.0); HGB 12.4 gm/dL (11.4-16.0); Hypochromasia Moderate; Lymphocytes # (A) 0.7 k/uL (1.0-4.8); Lymphocytes % (A) 9 %; MCH 30.9 pg (25.0-35.0); MCHC 32.3 g/dL (31.0-37.0); MCV 95.7 fL (80.0-100.0); Mean Platelet Volume 8.7; Monocytes # (A) 0.3 k/uL (0-1.0); Monocytes % (A) 3 %; Neutrophils # (A) 7.1 k/uL (1.3-7.7); Neutrophils % (A) 87 %; Platelet Count 335 k/uL (150-450); RDW 15.1 % (11.5-15.5); WBC 8.1 k/uL (3.8-10.6)
[2022-01-29] MEDS: buPROPion SR 100 MG TABLET.ER PO SCH (09:54)
[2022-01-29 12:10] LABS: Glucose,Whole Blood 137 mg/dL (70-110)
[2022-01-29] MEDS ORDERED: RX INFO: IV CONTRAST WAS GIVEN 1 EACH MISC MISCELLANE PRN (12:55)
[2022-01-29] MEDS: MORPHINE SULFATE ER 30 MG TABLET PO SCH ×2 (13:45→22:03)
--- NOTE | 2022-01-29 14:15 | P.PN ---
Subjective Progress Note Date: 01/29/22 Principal diagnosis: Intractable pain, elevated troponins In f/u today pt reports that she had better pain control overnight, did get some rest but, unfortunately she was moved this a.m. and any manipulation of her left upper extremity causes her excruciating pain. She is in tears. She is voicing that she is terrified of leaving the hospital and going to a extended care faci lity while she is in so much pain. Objective - Vital Signs Vital signs: Vital Signs Temp 98.2 F 01/29/22 08:14 Pulse 88 01/29/22 11:59 Resp 18 01/29/22 11:41 BP 135/84 01/29/22 11:41 Pulse Ox 94 L 01/29/22 11:41 FiO2 Intake & Output 01/28/22 01/29/22 01/29/22 18:59 06:59 18:59 Intake Total 358 540 540 Output Total 600 300 Balance -242 240 540 Intake: Oral 358 540 540 Output: Urine 600 300 Other: Voiding Method External Catheter External Catheter External Catheter # Voids 2 - Constitutional General appearance: Present: cooperative, obese, severe distress - EENT Eyes: Present: anicteric sclerae, EOMI ENT: Present: hearing grossly normal - Respiratory Respiratory: bilateral: diminished - Cardiovascular Details: mild tachycardia, regular rhythm - Neurologic Neurologic Comment(s): unable use LUE - Musculoskeletal Musculoskeletal Comment(s): LUE swelling - Psychiatric Psychiatric: Present: A&O x's 3 - Labs CBC & Chem 7: 01/29/22 08:53 01/29/22 08:53 Labs: Abnormal Lab Results - Last 24 Hours (Table) 01/28/22 01/29/22 01/29/22 Range/Units 07:38 08:53 08:53 Lymphocytes # 0.7 L (1.0-4.8) k/uL Sodium 134 L (137-145) mmol/L Chloride 90 L (98-107) mmol/L Carbon Dioxide 39 H (22-30) mmol/L BUN 22 H (7-17) mg/dL Glucose 142 H (74-99) mg/dL POC Glucose (mg/dL) (70-110) mg/dL Procalcitonin 0.22 H (0.02-0.09) ng/mL 01/29/22 Range/Units 12:08 Lymphocytes # (1.0-4.8) k/uL Sodium (137-145) mmol/L Chloride (98-107) mmol/L Carbon Dioxide (22-30) mmol/L BUN (7-17) mg/dL Glucose (74-99) mg/dL POC Glucose (mg/dL) 137 H (70-110) mg/dL Procalcitonin (0.02-0.09) ng/mL Microbiology - Last 24 Hours (Table) 01/28/22 08:00 Gram Stain - Preliminary Sputum Sputum Culture - Preliminary 01/26/22 15:25 Blood Culture - Preliminary Blood No Growth after 48 hours 01/26/22 15:10 Blood Culture - Preliminary Blood No Growth after 48 hours Assessment and Plan (1) DVT (deep venous thrombosis) Current Visit: Yes Status: Acute Priority: High Code(s): I82.409 - ACUTE EMBOLISM AND THOMBOS UNSP DEEP VN UNSP LOWER EXTREMITY SNOMED Code(s): 354789610 (2) Adenocarcinoma, lung Current Visit: Yes Status: Acute Priority: High Code(s): C34.90 - MALIGNANT NEOPLASM OF UNSP PART OF UNSP BRONCHUS OR LUNG SNOMED Code(s): 727920368 Plan: Patient is on eliquis for recently diagnosed left upper extremity DVT and right lower extremity DVT. BLE doppler was done, no clot in RLE, chronic DVT in LLE seen. Continue elliquis for now. Patient does have a history of lung cancer. Over the last 2 months she has evidence of disease progression on imaging, plans were for PET scan to determine extent. She unfortunately required cervical surgery, as noted below. This has delayed workup. Patient did have a CT chest scan in November at outside facility. Left upper lobe mass reported, increased in size from previously. Have requested a CT scan of the chest. We will ask Pulmonary to assess if that site is amenable to biopsy. Radiculopathy, s/p anterior access fusion of C4 & 5, C6 & 7. Pain is in LUE. Pain meds adjusted yesterday. She reported that she had a better night but, this morning, after manipulation she is in severe pain. She was due for IV pain medications, discussed with nursing, they will be providing as soon as possible to patient. Continue current analgesic regimen as prescribed. Medications for prevention of narcotic-induced constipation ordered. Continue steroids at current dose. attests: I have seen and examined patient, performed H&P, developed impression and plan of care. Discussed with dictator. Agree with documentation, dictated as a scribe
--- NOTE | 2022-01-29 15:00 | CT ---
EXAMINATION TYPE: CT chest w con CT DLP: 718.3 mGycm, Automated exposure control for dose reduction was used. DATE OF EXAM: 01/29/2022 2:44 PM COMPARISON: CT chest 11/30/2021. CLINICAL INDICATION:Female, 81 years old with history of LORY mass, LAD. TECHNIQUE: Multiple axial images were obtained through the chest following the administration of 100 cc of Isovue 300. FINDINGS: LUNGS/ PLEURA: Trace left pleural effusion. No pneumothorax. Moderate centrilobular emphysematous laine nges. Stable spiculated masslike density within the left upper lobe measuring 2.7 x 1.2 cm. There is surrounding reticular opacities and interlobular septal thickening which is increased. Stable right lower lobe 6 mm pulmonary nodule (series 5, image 31). Stable left lower lobe subpleural nodule measu ring 8 mm (series 205, image 22). No definitive new or enlarging pulmonary nodules. AIRWAY: Patent and unremarkable.. HEART: Size within normal limits. No pericardial effusion. Coronary artery and aortic valvular calcif ications. MEDIASTINUM: No hilar adenopathy. Increased size of AP window lymph nodes measuring 1.0 standard shor t axis (series 201, image 13), previously 0.7 cm. And 1.2 cm short axis ((series 201, image 14), prev iously 1.1 cm. VASCULATURE: Stable ascending aortic aneurysm measuring 4.6 cm. Stable dilated main pulmonary artery measuring up to 5.0 cm which could be seen in the setting of pulmonary arterial hypertension. MUSCULOSKELETAL: No acute osseous abnormalities. Partial visualization of cervical fusion hardware. R ight shoulder prosthesis. Lower thoracolumbar fixation hardware demonstrated which greater streak art ifact limiting evaluation. SOFT TISSUES/LYMPH NODES: Unremarkable. LOWER NECK: No significant findings. UPPER ABDOMEN: Liver is diffusely hypoattenuating. Bilateral renal calculi redemonstrated with a 1.5 cm calculus in the partially visualized right renal pelvis.. Cholelithiasis. Right kidney exophytic c yst measuring up to 3.7 cm. IMPRESSION: 1. Relatively stable size spiculated left upper lobe lung mass. Increased left upper lobe reticular i ntralobular septal opacities. This may be related to posttreatment changes. Additional pulmonary nodu les are stable. Attention on follow-up. 2. Increased size of AP window mediastinal lymph nodes suggesting possible progression of disease. At tention on follow-up. 3. Bilateral renal calculi with a 1.5 cm calculus in the right renal pelvis. 4. Stable ascending aortic aneurysm measuring up to 4.6 cm with dilated main pulmonary artery measuri ng up to 5 cm. 5. Trace left pleural effusion.
--- NOTE | 2022-01-29 15:03 | P.PN ---
Subjective Progress Note Date: 01/29/22 Principal diagnosis: Left upper extremity pain and swelling. Pulmonary consult dated 01/28/2022. 81-year-old female who presented to the emergency department, via EMS, on January 26, complaining of generalized weakness. In addition, the patient had recent cervical spine surgery, at level C3 through C7, December 28, at [facility]. The patient states that her left arm pain, and swelling, as well as lack of mobility, preceded the surgery. She had the surgery hoping that he would help to improve the left upper extremity. Unfortunately it has not. She denies any difficulty breathing, coughing, wheezing, or phlegm production. No abdominal pain, nausea, vomiting, or diarrhea. No chest pain. No urinary complaints. The patient does have a history of lung cancer, GERD, hyperlipidemia, hypertension, and pneumonia. She's had a previous right upper lobectomy, 2005 for her lung cancer. In addition, she has a nodule in the left upper lobe, thought to possibly be lung cancer as well. Lab data from January 27 and January show white count of 7.9, hemoglobin 11.8, hematocrit 37.2, and platelet count 306,000. Sodium 136, potassium 4.7, chlorides 93, CO2 38, BUN 18, creatinine 0.7 and anion gap is 5. Testing for coronavirus was negative. The patient's currently not on any IV fluids. The patient is on 3 L of oxygen. The left upper lobe pulmonary nodule is being followed with serial CT scanning. The most recent computed tomography scan showed that the nodule was stable in size. Because of a abnormal PET scan of the nodule, the patient was treated with stereotactic body radiotherapy (SBRT) Progress note dated 01/29/2022. 81-year-old female again seen in room 368. The patient's on 3 L of oxygen. No IV fluids. She's got a cervical collar in place. The patient was to be discharged to one of the local nursing homes, but apparently she is upset and does not want to go to the shelter. Laboratory data today includes a white count of 8.1, hemoglobin 12.4, hematocrit 38.3, and platelet count 335,000. Sodium 134, potassium 4.9, chlorides 90, CO2 39, BUN 22, and creatinine 0.73. The patient has severe COPD, reflected in her elevated bicarbonate concentration of 39. This is the reason why we never biopsied the lesion in the left upper lobe, but rather, did stereotactic body radiotherapy. Pro-calcitonin level was 0.22. Doppler of the lower extremities reveal no DVT in the right leg, and a possible chronic DVT in the left leg. Objective - Vital Signs Vital signs: Vital Signs Temp 98.2 F 01/29/22 08:14 Pulse 84 01/29/22 14:05 Resp 18 01/29/22 14:05 BP 135/84 01/29/22 11:41 Pulse Ox 94 L 01/29/22 11:41 FiO2 Intake & Output 01/28/22 01/29/22 01/29/22 18:59 06:59 18:59 Intake Total 358 540 540 Output Total 600 300 Balance -242 240 540 Intake: Oral 358 540 540 Output: Urine 600 300 Other: Voiding Method External Catheter External Catheter External Catheter # Voids 2 - Exam No acute distress, oriented 3. Currently on 2 L. This is her home dose. No respiratory difficulty or distress. No use of accessory muscles or con versational dyspnea. HEENT examination is grossly unremarkable. Neck supple. Full range of motion. No adenopathy thyromegaly or neck vein distention. Cervical collar in place. Cardiovascular examination reveals regular rhythm rate. S1-S2 normal. No S3 or S4. No discernible murmur noted. Heart rate 84 bpm. Lungs reveal mostly clear breath sounds. Minimal rhonchi. No wheezes or crackl es. Breath sounds equal bilaterally. Saturations are 95%. Abdomen soft bowel sounds are heard. No masses or tenderness. Extremities reveal a very painful, swollen left upper extremity. She could hardly move it. The rest of the extremities appear normal. Skin is without rash or lesion. Neurologic examination is brief but nonfocal. - Labs CBC & Chem 7: 01/29/22 08:53 01/29/22 08:53 Labs: Abnormal Lab Results - Last 24 Hours (Table) 01/28/22 01/29/22 01/29/22 Range/Units 07:38 08:53 08:53 Lymphocytes # 0.7 L (1.0-4.8) k/uL Sodium 134 L (137-145) mmol/L Chloride 90 L (98-107) mmol/L Carbon Dioxide 39 H (22-30) mmol/L BUN 22 H (7-17) mg/dL Glucose 142 H (74-99) mg/dL POC Glucose (mg/dL) (70-110) mg/dL Procalcitonin 0.22 H (0.02-0.09) ng/mL 01/29/22 Range/Units 12:08 Lymphocytes # (1.0-4.8) k/uL Sodium (137-145) mmol/L Chloride (98-107) mmol/L Carbon Dioxide (22-30) mmol/L BUN (7-17) mg/dL Glucose (74-99) mg/dL POC Glucose (mg/dL) 137 H (70-110) mg/dL Procalcitonin (0.02-0.09) ng/mL Microbiology - Last 24 Hours (Table) 01/28/22 08:00 Gram Stain - Preliminary Sputum Sputum Culture - Preliminary 01/26/22 15:25 Blood Culture - Preliminary Blood No Growth after 48 hours 01/26/22 15:10 Blood Culture - Preliminary Blood No Growth after 48 hours Assessment and Plan Assessment: Left upper extremity DVT, with pain, swelling, and immobility of the extremity. Multiple osseous lesions, consistent with metastatic lung cancer. Recent C3-C7 surgery, 12/28/2021 at [facility]. History of severe oxygen-dependent COPD. Right upper lobectomy, for non-small cell lung cancer, 2005. FDG avid 1.4 cm lesion left upper lobe, status post SBRT. Right lower extremity DVT. History of hyperlipidemia. History of hypertension. History of gastroesophageal reflux disease. Plan: Plan 01/28/2022. The patient is not having much in the way pulmonary issues. He was not admitted for a COPD exacerbation. She is not having any fever or chills. Breathing is stable. She does cough occasionally, and produces a small amount of phlegm. Nothing to really suggest active pneumonia or respiratory infection. I will check a pro-calcitonin level. If it is normal, the antibiotics can be discontinued, unless there is another source of infection. Additional recommendations and suggestions are forthcoming. Plan dated 01/29/2022. The patient to be discharged to the shelter. She may benefit very clear today we went into see her. She continues on oxygen at 2 L. Cervical collar in place. The patient is still complaining of pain and swelling in poor mobility in that left upper extremity. She had a recent C3 to C7 procedure, which did not improve the left upper extremity as anticipated. Medical oncology saw the patient, and ordered another CAT scan. They were requesting a biopsy of the lesion of the left upper lobe. We never biopsied this lesion, because of her severe COPD. We chose rather, to subject her to stereotactic body radiotherapy. We will continue to follow make recommendations along the way. Prognosis is guarded. Time with Patient: Less than 30
[2022-01-29] MEDS ORDERED: DEXTROSE 50% SYRINGE 50 ML IVP PRN ×2 (16:55)
[2022-01-29 16:57] LABS: Glucose,Whole Blood 217 mg/dL (70-110)
[2022-01-29] MEDS: INSULIN ASPART (NovoLOG) 100 UNIT/ML VIAL SQ SCH ×2 (17:23→23:33)
[2022-01-29] MEDS: CHOLECALCIFEROL 25 MCG (1000 IU) TABLET PO SCH (21:48)
[2022-01-29] MEDS: ASPIRIN 81 MG PO SCH (21:48)
[2022-01-29] MEDS: CYANOCOBALAMIN 500 MCG TAB PO SCH (21:48)
[2022-01-29] MEDS: DOXAZOSIN 4 MG TAB PO SCH (21:49)
[2022-01-29] MEDS: PRAVASTATIN SODIUM 40 MG TAB PO SCH (21:49)
[2022-01-29 22:21] LABS: Glucose,Whole Blood 161 mg/dL (70-110)
--- NOTE | 2022-01-29 22:40 | P.PN ---
Subjective Progress Note Date: 01/27/22 Patient is a 81-year-old female with a known history of lung cancer at the right upper lobe resection in 2005, left arm pain, hypertension, hyperlipidemia, GERD who is on follow-up with oncology as an outpatient presents to ER with complaints of generalized weakness. Patient is having left upper extremity weakness and recently had cervical spine surgery in December 2021. Patient states that she is becoming more weak and also having left arm pain which is not resolved after cervical surgery. Patient was recommended PET scan as an outpatient and was supposed to follow-up with oncology. Patient states that she is feeling weak and also unable to get physical therapy due to left arm pain. Denies any fever or chills. No nausea vomiting abdominal pain or diarrhea. No complaints of chest pain shortness of breath. Chest x-ray showed patchy airspace disease within the upper lung around region of known spiculated nodule. This may related to atelectasis versus infiltrate versus worsening cancer. EKG showed sinus rhythm. Laboratory data showed WBC 9.3 hemoglobin 12.3 and platelets 335 Sodium 132 potassium 4.3 chloride 89 bicarb is 39 BUN 13 creatinine 0.95 Lactic acid 0.8, troponin 0.051, 0.056 and 0.055 and albumin 3.1 Urinalysis showed large blood moderate leukocyte esterase with elevated RBCs and WBCs. 01/27/2022 Patient is currently in the MedSurg unit. Awake alert and oriented x3. Still complains of left upper extremity pain and pain medications were titrated as per oncology recommendations. Patient has been afebrile. No complaints of chest pain or shortness of breath. Patient was seen by cardiology and reviewed 2D echocardiogram done at [facility] which showed ejection fraction 6065% and no significant wall motion or valvular abnormalities noted. Unlikely ACS. No nausea vomiting or abdominal pain or diarrhea. No complaints of worsening respiratory status. Patient is being continued on antibiotics, ceftriaxone and azithromycin. Laboratory data showed WBC 7.9 hemoglobin 11.8 and platelets 306 Sodium 134 potassium 4.2 chloride 93 bicarb is 38 BUN 24 and creatinine 0.77 Urine cultures and blood cultures negative so far. Clinical medications reviewed. Objective - Vital Signs Vital signs: Vital Signs Temp 97.6 F 01/27/22 15:42 Pulse 76 01/27/22 20:46 Resp 18 01/27/22 16:34 BP 114/78 01/27/22 15:42 Pulse Ox 95 01/27/22 15:42 FiO2 Intake & Output 01/27/22 01/27/22 01/28/22 06:59 18:59 06:59 Intake Total 944 Output Total 1950 Balance -1006 Weight 102 kg Intake: IV 20 Invasive Line 1 20 Oral 924 Output: Urine 1950 Other: Voiding Method External Catheter External Catheter # Voids 0 - Exam PHYSICAL EXAMINATION: Patient is lying in the bed comfortably, no acute distress, awake alert and oriented.. HEENT: Normocephalic. Neck is supple. Pupils reactive. Nostrils clear. Oral cavity is moist. Neck reveals no JVD, carotid bruits, or thyromegaly. CHEST EXAMINATION: Trachea is central. Symmetrical expansion. Lung whitfield clear to auscultation and percussion. Bibasilar diminished sounds. CARDIAC: Normal S1, S2 with no gallops. No murmurs ABDOMEN: Soft. Bowel sounds normal. No organomegaly. No abdominal bruits. Extremities: Left upper extremity swelling and tenderness.. No clubbing or cyanosis Neurologically awake, alert, oriented x3 with well-coordinated movements. No focal deficits noted Skin: No rash or skin lesions. Psychiatric: Cooperative. Nonsuicidal Musculoskeletal: No joint swelling or deformity. Left arm tenderness and decreased range of motion. - Labs CBC & Chem 7: 01/29/22 08:53 01/29/22 08:53 Labs: Abnormal Lab Results - Last 24 Hours (Table) 01/27/22 Range/Units 07:21 Sodium 134 L (137-145) mmol/L Chloride 93 L (98-107) mmol/L Carbon Dioxide 38 H (22-30) mmol/L BUN 24 H (7-17) mg/dL Calcium 8.2 L (8.4-10.2) mg/dL Microbiology - Last 24 Hours (Table) 01/26/22 15:10 Blood Culture - Preliminary Blood No Growth after 24 hours 01/26/22 15:25 Blood Culture - Preliminary Blood No Growth after 24 hours 01/26/22 13:34 Urine Culture - Final Urine,Voided Assessment and Plan Assessment: Generalized weakness and left arm pain Left upper lobe patchy infiltrate with possible atelectasis versus pneumonia Urinary tract infection Lung cancer with history of left upper lobe resection in 2005 and disease progression recently. Scheduled for PET scan as outpatient Recently diagnosed DVT of the right lower extremity and left upper extremity. Currently on Eliquis. Elevated troponin level Unlikely ACS. Recent echocardiogram at [facility] showed normal ejection fraction and no significant wall motion abno rmalities noted. Hypertension Hyperlipidemia GERD Plan: Patient will be trialed on antibiotics involved ceftriaxone azithromycin. Follow blood cultures and urine cultures negative .Patient was started on pain management and dexamethasone as per oncology recommendations. Pulmonary was consulted due to history of lung mass. Continue with pain management. Cardiology was consulted due to elevated t roponin level. Continue with anticoagulation in the form of Eliquis. Oncology evaluation and current with home medications. Follow-up closely. Discussed with the patient and her at bedside in detail. Prognosis is guarded at this time. Time with Patient: Greater than 30
--- NOTE | 2022-01-29 22:41 | P.PN ---
Subjective Progress Note Date: 01/29/22 Patient is a 81-year-old female with a known history of lung cancer at the right upper lobe resection in 2005, left arm pain, hypertension, hyperlipidemia, GERD who is on follow-up with oncology as an outpatient presents to ER with complaints of generalized weakness. Patient is having left upper extremity weakness and recently had cervical spine surgery in December 2021. Patient states that she is becoming more weak and also having left arm pain which is not resolved after cervical surgery. Patient was recommended PET scan as an outpatient and was supposed to follow-up with oncology. Patient states that she is feeling weak and also unable to get physical therapy due to left arm pain. Denies any fever or chills. No nausea vomiting abdominal pain or diarrhea. No complaints of chest pain shortness of breath. Chest x-ray showed patchy airspace disease within the upper lung around region of known spiculated nodule. This may related to atelectasis versus infiltrate versus worsening cancer. EKG showed sinus rhythm. Laboratory data showed WBC 9.3 hemoglobin 12.3 and platelets 335 Sodium 132 potassium 4.3 chloride 89 bicarb is 39 BUN 13 creatinine 0.95 Lactic acid 0.8, troponin 0.051, 0.056 and 0.055 and albumin 3.1 Urinalysis showed large blood moderate leukocyte esterase with elevated RBCs and WBCs. 01/27/2022 Patient is currently in the MedSurg unit. Awake alert and oriented x3. Still complains of left upper extremity pain and pain medications were titrated as per oncology recommendations. Patient has been afebrile. No complaints of chest pain or shortness of breath. Patient was seen by cardiology and reviewed 2D echocardiogram done at [facility] which showed ejection fraction 6065% and no significant wall motion or valvular abnormalities noted. Unlikely ACS. No nausea vomiting or abdominal pain or diarrhea. No complaints of worsening respiratory status. Patient is being continued on antibiotics, ceftriaxone and azithromycin. Laboratory data showed WBC 7.9 hemoglobin 11.8 and platelets 306 Sodium 134 potassium 4.2 chloride 93 bicarb is 38 BUN 24 and creatinine 0.77 Urine cultures and blood cultures negative so far. 01/28/2022 Patient is currently resting in bed. Awake alert and oriented x3. She complains of generalized weakness. Left upper extremity pain is better and was started on dexamethasone as per oncology. No complaints of chest pain or shortness of breath. Oncology is on board. Recommended PET scan and also getting records from her pr ior oncologist. Farheen level greater showed sodium 136 potassium 4.7 chloride 93 bicarb is 38 BUN 18 and creatinine 0.7 and blood sugar is 117 and procalcitonin level is 0.22 Patient is doing Gundrum ceftriaxone and completed 3 days of azithromycin. 01/29/2022 Patient is lying in the bed. Awake alert and oriented x3. No complaints of chest pain or shortness of breath. Currently requiring 3 L oxygen via nasal cannula. Pulmonology recommends outpatient PET scan. Patient was seen by pulmonary and recommended CT thorax. Lung biopsy could not be done due to severe COPD and chronic hypoxic and hypercapnic respiratory failure. Laboratory test today showed WBC 8.1 hemoglobin 12.4 and platelets 385 Sodium 134 potassium 4.9 chloride 90 bicarb is 39 BUN 22 and creatinine 0.79 blood sugar 142. Anticipate discharge to residential versus home with home physical therapy. Patient does not want to go to residential. Clinical medications reviewed. Objective - Vital Signs Vital signs: Vital Signs Temp 98.2 F 01/29/22 08:14 Pulse 81 01/29/22 20:28 Resp 18 01/29/22 16:57 BP 142/86 01/29/22 16:57 Pulse Ox 97 01/29/22 20:17 FiO2 Intake & Output 01/29/22 01/29/22 01/30/22 06:59 18:59 06:59 Intake Total 540 540 Output Total 300 300 Balance 240 240 Intake: Oral 540 540 Output: Urine 300 300 Other: Voiding Method External Catheter External Catheter # Voids 2 - Exam PHYSICAL EXAMINATION: Patient is lying in the bed comfortably, no acute distress, awake alert and oriented.. HEENT: Normocephalic. Neck is supple. Pupils reactive. Nostrils clear. Oral cavity is moist. Neck reveals no JVD, carotid bruits, or thyromegaly. CHEST EXAMINATION: Trachea is central. Symmetrical expansion. Lung whitfield clear to auscultation and percussion. Bibasilar diminished sounds. CARDIAC: Normal S1, S2 with no gallops. No murmurs ABDOMEN: Soft. Bowel sounds normal. No organomegaly. No abdominal bruits. Extremities: Left upper extremity swelling and tenderness.. No clubbing or cyanosis Neurologically awake, alert, oriented x3 with well-coordinated movements. No focal deficits noted Skin: No rash or skin lesions. Psychiatric: Cooperative. Nonsuicidal Musculoskeletal: No joint swelling or deformity. Left arm tenderness and decreased range of motion. - Labs CBC & Chem 7: 01/29/22 08:53 01/29/22 08:53 Labs: Abnormal Lab Results - Last 24 Hours (Table) 01/28/22 01/29/22 01/29/22 Range/Units 07:38 08:53 08:53 Lymphocytes # 0.7 L (1.0-4.8) k/uL Sodium 134 L (137-145) mmol/L Chloride 90 L (98-107) mmol/L Carbon Dioxide 39 H (22-30) mmol/L BUN 22 H (7-17) mg/dL Glucose 142 H (74-99) mg/dL POC Glucose (mg/dL) (70-110) mg/dL Procalcitonin 0.22 H (0.02-0.09) ng/mL 01/29/22 01/29/22 01/29/22 Range/Units 12:08 16:53 22:18 Lymphocytes # (1.0-4.8) k/uL Sodium (137-145) mmol/L Chloride (98-107) mmol/L Carbon Dioxide (22-30) mmol/L BUN (7-17) mg/dL Glucose (74-99) mg/dL POC Glucose (mg/dL) 137 H 217 H 161 H (70-110) mg/dL Procalcitonin (0.02-0.09) ng/mL Microbiology - Last 24 Hours (Table) 01/26/22 15:25 Blood Culture - Preliminary Blood No Growth after 72 hours 01/26/22 15:10 Blood Culture - Preliminary Blood No Growth after 72 hours 01/28/22 08:00 Gram Stain - Preliminary Sputum Sputum Culture - Preliminary Assessment and Plan Assessment: Generalized weakness and left arm pain Left upper lobe patchy infiltrate with possible atelectasis versus pneumonia Urinary tract infection. cx negative Lung cancer with history of left upper lobe resection in 2006 and disease progression recently. Scheduled for PET scan as outpatient Recently diagnosed DVT of the right lower extremity and left upper extremity. Currently on Eliquis. Elevated troponin level Unlikely ACS. Recent echocardiogram at [facility] showed normal ejection fraction and no significant wall motion abnormalities noted. Hypertension Hyperlipidemia GERD Plan: Patient will be trialed on antibiotics involved ceftriaxone azithromycin. Follow blood cultures and urine cultures negative .Patient was started on pain management and dexamethasone as per oncology recommendations. Pulmonary was consulted due to history of lung mass. Continue with pain management. Continue with anticoagulation in the form of Eliquis. Follow-up closely. Discussed with the patient and her at bedside in detail. Prognosis is guarded at this time. Patient is being followed by oncology, cardiology and pulmonary. Stay discharged to ECF due to generalized debility and pain. Time with Patient: Greater than 30
--- NOTE | 2022-01-29 22:42 | P.PN ---
Subjective Progress Note Date: 01/28/22 Patient is a 81-year-old female with a known history of lung cancer at the right upper lobe resection in 2005, left arm pain, hypertension, hyperlipidemia, GERD who is on follow-up with oncology as an outpatient presents to ER with complaints of generalized weakness. Patient is having left upper extremity weakness and recently had cervical spine surgery in December 2021. Patient states that she is becoming more weak and also having left arm pain which is not resolved after cervical surgery. Patient was recommended PET scan as an outpatient and was supposed to follow-up with oncology. Patient states that she is feeling weak and also unable to get physical therapy due to left arm pain. Denies any fever or chills. No nausea vomiting abdominal pain or diarrhea. No complaints of chest pain shortness of breath. Chest x-ray showed patchy airspace disease within the upper lung around region of known spiculated nodule. This may related to atelectasis versus infiltrate versus worsening cancer. EKG showed sinus rhythm. Laboratory data showed WBC 9.3 hemoglobin 12.3 and platelets 335 Sodium 132 potassium 4.3 chloride 89 bicarb is 39 BUN 13 creatinine 0.95 Lactic acid 0.8, troponin 0.051, 0.056 and 0.055 and albumin 3.1 Urinalysis showed large blood moderate leukocyte esterase with elevated RBCs and WBCs. 01/27/2022 Patient is currently in the MedSurg unit. Awake alert and oriented x3. Still complains of left upper extremity pain and pain medications were titrated as per oncology recommendations. Patient has been afebrile. No complaints of chest pain or shortness of breath. Patient was seen by cardiology and reviewed 2D echocardiogram done at [facility] which showed ejection fraction 6065% and no significant wall motion or valvular abnormalities noted. Unlikely ACS. No nausea vomiting or abdominal pain or diarrhea. No complaints of worsening respiratory status. Patient is being continued on antibiotics, ceftriaxone and azithromycin. Laboratory data showed WBC 7.9 hemoglobin 11.8 and platelets 306 Sodium 134 potassium 4.2 chloride 93 bicarb is 38 BUN 24 and creatinine 0.77 Urine cultures and blood cultures negative so far. 01/28/2022 Patient is currently resting in bed. Awake alert and oriented x3. She complains of generalized weakness. Left upper extremity pain is better and was started on dexamethasone as per oncology. No complaints of chest pain or shortness of breath. Oncology is on board. Recommended PET scan and also getting records from her pr ior oncologist. Farheen level greater showed sodium 136 potassium 4.7 chloride 93 bicarb is 38 BUN 18 and creatinine 0.7 and blood sugar is 117 and procalcitonin level is 0.22 Patient is doing Gundrum ceftriaxone and completed 3 days of azithromycin. Clinical medications reviewed. Objective - Vital Signs Vital signs: Vital Signs Temp 98.1 F 01/28/22 20:00 Pulse 80 01/28/22 20:04 Resp 18 01/28/22 20:00 BP 160/78 01/28/22 20:00 Pulse Ox 94 L 01/28/22 20:00 FiO2 Intake & Output 01/28/22 01/28/22 01/29/22 06:59 18:59 06:59 Intake Total 20 358 540 Output Total 1600 600 Balance -1580 -242 540 Intake: IV 20 Invasive Line 1 20 Oral 358 540 Output: Urine 1600 600 Other: Voiding Method External Catheter External Catheter External Catheter - Exam PHYSICAL EXAMINATION: Patient is lying in the bed comfortably, no acute distress, awake alert and oriented.. HEENT: Normocephalic. Neck is supple. Pupils reactive. Nostrils clear. Oral cavity is moist. Neck reveals no JVD, carotid bruits, or thyromegaly. CHEST EXAMINATION: Trachea is central. Symmetrical expansion. Lung whitfield clear to auscultation and percussion. Bibasilar diminished sounds. CARDIAC: Normal S1, S2 with no gallops. No murmurs ABDOMEN: Soft. Bowel sounds normal. No organomegaly. No abdominal bruits. Extremities: Left upper extremity swelling and tenderness.. No clubbing or cyanosis Neurologically awake, alert, oriented x3 with well-coordinated movements. No focal deficits noted Skin: No rash or skin lesions. Psychiatric: Cooperative. Nonsuicidal Musculoskeletal: No joint swelling or deformity. Left arm tenderness and decreased range of motion. - Labs CBC & Chem 7: 01/29/22 08:53 01/29/22 08:53 Labs: Abnormal Lab Results - Last 24 Hours (Table) 01/28/22 Range/Units 07:38 Sodium 136 L (137-145) mmol/L Chloride 93 L (98-107) mmol/L Carbon Dioxide 38 H (22-30) mmol/L BUN 18 H (7-17) mg/dL Glucose 117 H (74-99) mg/dL Microbiology - Last 24 Hours (Table) 01/26/22 15:25 Blood Culture - Preliminary Blood No Growth after 48 hours 01/26/22 15:10 Blood Culture - Preliminary Blood No Growth after 48 hours 01/28/22 08:00 Sputum Culture - Preliminary Sputum Assessment and Plan Assessment: Generalized weakness and left arm pain Left upper lobe patchy infiltrate with possible atelectasis versus pneumonia Urinary tract infection. cx negative Lung cancer with history of left upper lobe resection in 2005 and disease progression recently. Scheduled for PET scan as outpatient Recently diagnosed DVT of the right lower extremity and left upper extremity. Currently on Eliquis. Elevated troponin level Unlikely ACS. Recent echocardiogram at [facility] showed normal ejection fraction and no significant wall motion a bnormalities noted. Hypertension Hyperlipidemia GERD Plan: Patient will be trialed on antibiotics involved ceftriaxone azithromycin. Follow blood cultures and urine cultures negative .Patient was started on pain management and dexamethasone as per oncology recommendations. Pulmonary was consulted due to history of lung mass. Continue with pain management. Cardiology was consulted due to elevated troponin level. Continue with anticoagulation in the form of Eliquis. Oncology evaluation and current with home medications. Follow-up closely. Discussed with the patient and her at bedside in detail. Prognosis is guarded at this time. Time with Patient: Greater than 30
[2022-01-30] MEDS: buPROPion SR 100 MG TABLET.ER PO SCH ×3 (01:30→20:58)
[2022-01-30 06:14] LABS: Glucose,Whole Blood 138 mg/dL (70-110)
[2022-01-30] MEDS: INSULIN ASPART (NovoLOG) 100 UNIT/ML VIAL SQ SCH ×4 (06:21→20:46)
[2022-01-30] MEDS: LEVOTHYROXINE 125 MCG TAB PO SCH (06:23)
[2022-01-30] MEDS: MORPHINE SULFATE 4 MG/ML SYRINGE IVP PRN ×4 (06:27→23:10)
[2022-01-30] MEDS: ALBUTEROL NEBULIZED 2.5 MG/3 ML INHALATION PRN ×4 (08:36→20:26)
[2022-01-30] MEDS: SYMBICORT 160-4.5 MCG INHALER INHALATION SCH ×2 (08:37→20:26)
[2022-01-30] MEDS: MONTELUKAST 10 MG TAB PO SCH (08:43)
[2022-01-30] MEDS: GABAPENTIN 100 MG CAP PO SCH ×3 (08:43→20:56)
[2022-01-30] MEDS: FUROSEMIDE 40 MG TAB PO SCH (08:43)
[2022-01-30] MEDS: SPIRONOLACTONE 25 MG TAB PO SCH (08:43)
[2022-01-30] MEDS: MORPHINE SULFATE ER 30 MG TABLET PO SCH ×2 (08:43→20:56)
[2022-01-30] MEDS: APIXABAN 5 MG TAB PO SCH ×2 (08:43→20:57)
[2022-01-30] MEDS: SENNOSIDES-DOCUSATE SODIUM 1 EACH TAB PO SCH ×2 (08:43→20:57)
[2022-01-30] MEDS: PANTOPRAZOLE 40 MG TABLET PO SCH ×2 (08:43→20:56)
[2022-01-30] MEDS: DEXAMETHASONE SOD PHOSPHATE 4 MG/ML 1 ML VIAL IVP SCH ×3 (08:44→20:58)
[2022-01-30] MEDS: allopurinoL 100 MG TAB PO SCH ×2 (08:44→20:57)
[2022-01-30 10:18] LABS: Calcium 9.1 mg/dL (8.4-10.2); Potassium 4.6 mmol/L (3.5-5.1)
--- NOTE | 2022-01-30 10:51 | P.PN ---
Subjective Progress Note Date: 01/30/22 Principal diagnosis: Concern for lung cancer -CT of the chest repeated on 01/29/2022 noted stable left upper lobe spiculated mass measuring 2.[address] scan performed at [facility] in December 2021 noted mass measuring about 1.5 x 2 cm -No acute events overnight, afebrile -She appears more comfortable this morning than she was yesterday -She notes its hard to tell if she has had significant improvement in the pain just yet, but the IV morphine that is currently ordered for her along with the dexamethasone seems to be taking some of the edge off of the pain -She is noted improved breathing after starting nebulizer breathing treatments Objective - Vital Signs Vital signs: Vital Signs Temp 97.5 F L 01/30/22 08:39 Pulse 80 01/30/22 09:46 Resp 18 01/30/22 09:46 BP 147/88 01/30/22 08:39 Pulse Ox 93 L 01/30/22 08:39 FiO2 Intake & Output 01/29/22 01/30/22 01/30/22 18:59 06:59 18:59 Intake Total 540 118 Output Total 300 1650 550 Balance 240 -1650 -432 Intake: Oral 540 118 Output: Urine 300 1650 550 Other: Voiding Method External Catheter External Catheter External Catheter # Voids 2 - Constitutional Constitutional Comment(s): Appears more comfortable today than on yesterday's exam General appearance: Present: cooperative, no acute distress - EENT Eyes: Present: EOMI - Neck Details: Wearing cervical neck brace - Respiratory Respiratory: bilateral: wheezing (Bilateral expiratory wheezing heard at the lung bases) - Cardiovascular Rhythm: regular - Gastrointestinal General gastrointestinal: Present: soft. Absent: distended - Neurologic Neurologic: Present: CNII-XII intact - Labs CBC & Chem 7: 01/29/22 08:53 01/30/22 09:02 Labs: Abnormal Lab Results - Last 24 Hours (Table) 01/29/22 01/29/22 01/29/22 Range/Units 12:08 16:53 22:18 Sodium (137-145) mmol/L Chloride (98-107) mmol/L Carbon Dioxide (22-30) mmol/L BUN (7-17) mg/dL Glucose (74-99) mg/dL POC Glucose (mg/dL) 137 H 217 H 161 H (70-110) mg/dL 01/30/22 01/30/22 Range/Units 06:12 09:02 Sodium 133 L (137-145) mmol/L Chloride 89 L (98-107) mmol/L Carbon Dioxide 38 H (22-30) mmol/L BUN 27 H (7-17) mg/dL Glucose 142 H (74-99) mg/dL POC Glucose (mg/dL) 138 H (70-110) mg/dL Microbiology - Last 24 Hours (Table) 01/26/22 15:25 Blood Culture - Preliminary Blood No Growth after 72 hours 01/26/22 15:10 Blood Culture - Preliminary Blood No Growth after 72 hours 01/28/22 08:00 Gram Stain - Preliminary Sputum Sputum Culture - Preliminary - Imaging and Cardiology CT scan - chest: report reviewed, image reviewed Assessment and Plan Assessment: Ms. Resendiz is an 81-year-old woman with a past medical history significant for COPD who had SBRT to left upper lobe lung nodule in February 2020 and recently underwent cervical discotomy in December 2021 who presents with increased left neck discomfort and left arm pain with inability to move the left arm. She had thoracic spine MRI at [facility] in December 2021 which revealed T1 and T2 osteolytic lesions concerning for potential metastatic disease Plan: #Left neck and arm pain -Recent cervical discotomy from C3-C7 performed at [facility] in December 2021 -She is currently in a cervical neck brace -She did have nuclear medicine bone scan performed at [facility] which revealed uptake in the T1 and T2 vertebral bodies along with the proximal carmen ateral humerus -Given her history of the left upper lobe spiculated lesion along with concerning osteolytic lesions at T1 and T2, it is possible this could be related to metastatic lung cancer -She was started on morphine 30 mg extended release twice daily on 01/29/2022 along with morphine 0.5 mg IV every 3 hours as needed in addition to dexamethasone 4 mg IV 3 times daily started on 01/28/2022 -We will assess how this regimen is working over the weekend, but she appears to be more comfortable on today's exam -She is concerned about her inability to significantly move her left shoulder -She did inquire into the possibility of having an orthopedic consult for this. We will consider this if she does not have significant improvement on the current pain regimen #Possible metastatic lung cancer -Left upper lobe lesion that was suspicious for malignancy was treated with SBRT in February 2020 due to her underlying history of COPD, surgery was deferred at that time -CT chest abdomen and pelvis performed at [facility] on 12/25/2021 noted a 1.5 x 2 centimeter spiculated mass in the left upper lobe along with borderline mediastinal lymphadenopathy -MRI of the thoracic spine noted invasive lytic lesions at T1 and T2 along with increased uptake on nuclear medicine bone scan concerning for potential metastatic disease -Pathology was not sent from recently performed cervical discotomy -She did follow-up with her primary oncologist Dr. Nam on 01/11/2022 with plan to pursue PET/CT for additional work-up that was originally scheduled on 01/29/2022 -We discussed that the goal of current admission is to control her pain to the point where she would be able to lie flat and undergo further testing, which she states she is not able to do at this time -If pain can eventually be controlled on oral regimen, she can pursue further work-up and management as outpatient -If her pain persists, she may require work-up inpatient, including potentially obtaining a biopsy for definitive diagnosis of malignancy #DVT of the left arm and right lower extremity -This is a complication of her most recent surgery and is on Eliquis 5 mg twice daily -Doppler of the left lower extremity on this admission noted chronic DVT -Continue therapeutic Eliquis for anticoagulation
[2022-01-30 11:55] LABS: Glucose,Whole Blood 169 mg/dL (70-110)
--- NOTE | 2022-01-30 13:12 | P.PN ---
Subjective Progress Note Date: 01/30/22 Principal diagnosis: Left upper extremity pain and swelling. Pulmonary consult dated 01/28/2022. 81-year-old female who presented to the emergency department, via EMS, on January 26, complaining of generalized weakness. In addition, the patient had recent cervical spine surgery, at level C3 through C7, December 28, at [facility]. The patient states that her left arm pain, and swelling, as well as lack of mobility, preceded the surgery. She had the surgery hoping that he would help to improve the left upper extremity. Unfortunately it has not. She denies any difficulty breathing, coughing, wheezing, or phlegm production. No abdominal pain, nausea, vomiting, or diarrhea. No chest pain. No urinary complaints. The patient does have a history of lung cancer, GERD, hyperlipidemia, hypertension, and pneumonia. She's had a previous right upper lobectomy, 2005 for her lung cancer. In addition, she has a nodule in the left upper lobe, thought to possibly be lung cancer as well. Lab data from January 27 and January show white count of 7.9, hemoglobin 11.8, hematocrit 37.2, and platelet count 306,000. Sodium 136, potassium 4.7, chlorides 93, CO2 38, BUN 18, creatinine 0.7 and anion gap is 5. Testing for coronavirus was negative. The patient's currently not on any IV fluids. The patient is on 3 L of oxygen. The left upper lobe pulmonary nodule is being followed with serial CT scanning. The most recent computed tomography scan showed that the nodule was stable in size. Because of a abnormal PET scan of the nodule, the patient was treated with stereotactic body radiotherapy (SBRT) Progress note dated 01/29/2022. 81-year-old female again seen in room 368. The patient's on 3 L of oxygen. No IV fluids. She's got a cervical collar in place. The patient was to be discharged to one of the local nursing homes, but apparently she is upset and does not want to go to the halfway. Laboratory data today includes a white count of 8.1, hemoglobin 12.4, hematocrit 38.3, and platelet count 335,000. Sodium 134, potassium 4.9, chlorides 90, CO2 39, BUN 22, and creatinine 0.73. The patient has severe COPD, reflected in her elevated bicarbonate concentration of 39. This is the reason why we never biopsied the lesion in the left upper lobe, but rather, did stereotactic body radiotherapy. Pro-calcitonin level was 0.22. Doppler of the lower extremities reveal no DVT in the right leg, and a possible chronic DVT in the left leg. Progress note dated 01/30/2022. The patient is seen today in room 368. She's not on any IV fluids. She remains on oxygen at 3 L. She was placed on long-acting morphine, and the pain in the left arm, appears to be improved. Sodium is 133, potassium 4.6, chloride 89, CO2 38, BUN 27, creatinine 0.76. Calcium is 9.1. Objective - Vital Signs Vital signs: Vital Signs Temp 97.5 F L 01/30/22 08:39 Pulse 84 01/30/22 12:16 Resp 18 01/30/22 11:24 BP 143/92 01/30/22 11:24 Pulse Ox 94 L 01/30/22 11:24 FiO2 Intake & Output 01/29/22 01/30/22 01/30/22 18:59 06:59 18:59 Intake Total 540 118 Output Total 300 1650 550 Balance 240 -1650 -432 Intake: Oral 540 118 Output: Urine 300 1650 550 Other: Voiding Method External Catheter External Catheter External Catheter # Voids 2 - Exam No acute distress, oriented 3. Currently on 2 L. This is her home dose. No respiratory difficulty or distress. No use of accessory muscles or conversational dyspnea. HEENT examination is grossly unremarkable. Neck supple. Full range of motion. No adenopathy thyromegaly or neck vein distention. Cervical collar in place. Cardiovascular examination reveals regular rhythm rate. S1-S2 normal. No S3 or S4. No discernible murmur noted. Heart rate 84 bpm. Lungs reveal mostly clear breath sounds. Minimal rhonchi. No wheezes or crackles. Breath sounds equal bilaterally. Saturations are 94 %. Abdomen soft bowel sounds are heard. No masses or tenderness. Extremities reveal a very painful, swollen left upper extremity. She could hardly move it. The rest of the extremities appear normal. Skin is without rash or lesion. Neurologic examination is brief but nonfocal. - Labs CBC & Chem 7: 01/29/22 08:53 01/30/22 09:02 Labs: Abnormal Lab Results - Last 24 Hours (Table) 01/29/22 01/29/22 01/30/22 Range/Units 16:53 22:18 06:12 Sodium (137-145) mmol/L Chloride (98-107) mmol/L Carbon Dioxide (22-30) mmol/L BUN (7-17) mg/dL Glucose (74-99) mg/dL POC Glucose (mg/dL) 217 H 161 H 138 H (70-110) mg/dL 01/30/22 01/30/22 Range/Units 09:02 11:53 Sodium 133 L (137-145) mmol/L Chloride 89 L (98-107) mmol/L Carbon Dioxide 38 H (22-30) mmol/L BUN 27 H (7-17) mg/dL Glucose 142 H (74-99) mg/dL POC Glucose (mg/dL) 169 H (70-110) mg/dL Microbiology - Last 24 Hours (Table) 01/28/22 08:00 Gram Stain - Final Sputum Sputum Culture - Final Aleida albicans 01/26/22 15:25 Blood Culture - Preliminary Blood No Growth after 72 hours 01/26/22 15:10 Blood Culture - Preliminary Blood No Growth after 72 hours Assessment and Plan Assessment: Left upper extremity DVT, with pain, swelling, and immobility of the extremity. Multiple osseous lesions, consistent with metastatic lung cancer. Recent C3-C7 surgery, 12/28/2021 at [facility]. History of severe oxygen-dependent COPD. Right upper lobectomy, for non-small cell lung cancer, 2005. FDG avid 1.4 cm lesion left upper lobe, status post SBRT. Right lower extremity DVT. History of hyperlipidemia. History of hypertension. History of gastroesophageal reflux disease. Plan: Plan 01/28/2022. The patient is not having much in the way pulmonary issues. He was not admitted for a COPD exacerbation. She is not having any fever or chills. Breathing is stable. She does cough occasionally, and produces a small amount of phlegm. Nothing to really suggest active pneumonia or respiratory infection. I will check a pro-calcitonin level. If it is normal, the antibiotics can be discontinued, unless there is another source of infection. Additional recommendations and suggestions are forthcoming. Plan dated 01/29/2022. The patient to be discharged to the halfway. She may benefit very clear today we went into see her. She continues on oxygen at 2 L. [address]ervical collar in place. The patient is still complaining of pain and swelling in poor mobility in that left upper extremity. She had a recent C3 to C7 procedure, which did not improve the left upper extremity as anticipated. Medical oncology saw the patient, and ordered another CAT scan. They were requesting a biopsy of the lesion of the left upper lobe. We never biopsied this lesion, because of her severe COPD. We chose rather, to subject her to stereotactic body radiotherapy. We will continue to follow make recommendations along the way. Prognosis is guarded. Plan dated 01/30/2022. The patient refuses discharged to halfway yesterday. She was placed on long-acting morphine. Her respiratory status is stable. We will see the patient moving forward only as needed. The patient does have a lesion in the left upper lobe. The patient underwent stereotactic body radiotherapy, because we thought the risk of doing bronchoscopy and biopsy, were too great in this patient with severe COPD. This was passed onto oncology. Continue see the patient only as needed. Prognosis is guarded. Time with Patient: Less than 30
[2022-01-30 16:43] LABS: Glucose,Whole Blood 117 mg/dL (70-110)
[2022-01-30 20:15] LABS: Glucose,Whole Blood 149 mg/dL (70-110)
[2022-01-30] MEDS: ASPIRIN 81 MG PO SCH (20:56)
[2022-01-30] MEDS: CYANOCOBALAMIN 500 MCG TAB PO SCH (20:57)
[2022-01-30] MEDS: CHOLECALCIFEROL 25 MCG (1000 IU) TABLET PO SCH (20:57)
[2022-01-30] MEDS: DOXAZOSIN 4 MG TAB PO SCH (20:58)
[2022-01-30] MEDS: PRAVASTATIN SODIUM 40 MG TAB PO SCH (20:58)
[2022-01-31] MEDS: MORPHINE SULFATE 4 MG/ML SYRINGE IVP PRN (05:31)
[2022-01-31] MEDS: LEVOTHYROXINE 125 MCG TAB PO SCH (05:31)
[2022-01-31 06:14] LABS: Glucose,Whole Blood 105 mg/dL (70-110)
[2022-01-31] MEDS: INSULIN ASPART (NovoLOG) 100 UNIT/ML VIAL SQ SCH ×4 (06:48→21:09)
[2022-01-31] MEDS: SYMBICORT 160-4.5 MCG INHALER INHALATION SCH ×2 (07:35→19:09)
[2022-01-31] MEDS: ALBUTEROL NEBULIZED 2.5 MG/3 ML INHALATION PRN ×3 (07:35→15:25)
[2022-01-31] MEDS: FUROSEMIDE 40 MG TAB PO SCH (08:39)
[2022-01-31] MEDS: SENNOSIDES-DOCUSATE SODIUM 1 EACH TAB PO SCH ×2 (08:39→22:34)
[2022-01-31] MEDS: allopurinoL 100 MG TAB PO SCH ×2 (08:39→22:33)
[2022-01-31] MEDS: GABAPENTIN 100 MG CAP PO SCH ×3 (08:39→22:34)
[2022-01-31] MEDS: MONTELUKAST 10 MG TAB PO SCH (08:39)
[2022-01-31] MEDS: buPROPion SR 100 MG TABLET.ER PO SCH ×2 (08:39→22:33)
[2022-01-31] MEDS: SPIRONOLACTONE 25 MG TAB PO SCH (08:39)
[2022-01-31] MEDS: APIXABAN 5 MG TAB PO SCH ×2 (08:40→22:33)
[2022-01-31] MEDS: DEXAMETHASONE SOD PHOSPHATE 4 MG/ML 1 ML VIAL IVP SCH ×2 (08:40→17:05)
[2022-01-31] MEDS: MORPHINE SULFATE ER 30 MG TABLET PO SCH ×2 (08:40→22:33)
[2022-01-31] MEDS: PANTOPRAZOLE 40 MG TABLET PO SCH ×2 (08:40→22:34)
--- NOTE | 2022-01-31 11:53 | P.PN ---
Subjective Progress Note Date: 01/31/22 Principal diagnosis: Left upper extremity pain and swelling. Pulmonary consult dated 01/28/2022. 81-year-old female who presented to the emergency department, via EMS, on January 26, complaining of generalized weakness. In addition, the patient had recent cervical spine surgery, at level C3 through C7, December 28, at [facility]. The patient states that her left arm pain, and swelling, as well as lack of mobility, preceded the surgery. She had the surgery hoping that he would help to improve the left upper extremity. Unfortunately it has not. She denies any difficulty breathing, coughing, wheezing, or phlegm production. No abdominal pain, nausea, vomiting, or diarrhea. No chest pain. No urinary complaints. The patient does have a history of lung cancer, GERD, hyperlipidemia, hypertension, and pneumonia. She's had a previous right upper lobectomy, 2005 for her lung cancer. In addition, she has a nodule in the left upper lobe, thought to possibly be lung cancer as well. Lab data from January 27 and January show white count of 7.9, hemoglobin 11.8, hematocrit 37.2, and platelet count 306,000. Sodium 136, potassium 4.7, chlorides 93, CO2 38, BUN 18, creatinine 0.7 and anion gap is 5. Testing for coronavirus was negative. The patient's currently not on any IV fluids. The patient is on 3 L of oxygen. The left upper lobe pulmonary nodule is being followed with serial CT scanning. The most recent computed tomography scan showed that the nodule was stable in size. Because of a abnormal PET scan of the nodule, the patient was treated with stereotactic body radiotherapy (SBRT) Progress note dated 01/29/2022. 81-year-old female again seen in room 368. The patient's on 3 L of oxygen. No IV fluids. She's got a cervical collar in place. The patient was to be discharged to one of the local nursing homes, but apparently she is upset and does not want to go to the intermediate. Laboratory data today includes a white count of 8.1, hemoglobin 12.4, hematocrit 38.3, and platelet count 335,000. Sodium 134, potassium 4.9, chlorides 90, CO2 39, BUN 22, and creatinine 0.73. The patient has severe COPD, reflected in her elevated bicarbonate concentration of 39. This is the reason why we never biopsied the lesion in the left upper lobe, but rather, did stereotactic body radiotherapy. Pro-calcitonin level was 0.22. Doppler of the lower extremities reveal no DVT in the right leg, and a possible chronic DVT in the left leg. Progress note dated 01/30/2022. The patient is seen today in room 368. She's not on any IV fluids. She remains on oxygen at 3 L. She was placed on long-acting morphine, and the pain in the left arm, appears to be improved. Sodium is 133, potassium 4.6, chloride 89, CO2 38, BUN 27, creatinine 0.76. Calcium is 9.1. Progress note dated 01/31/2022. The patient is seen again in room 368. Respiratory status is at baseline. She mostly came in for pain and swelling the left upper extremity. She is down to 2 L of oxygen. Saturations are 93%. She's not receiving any IV fluids. The patient was placed on MS Contin yesterday which has seemed to help the pain. No new laboratory data today other than a glucose of 105. Objective - Vital Signs Vital signs: Vital Signs Temp 97.9 F 01/31/22 08:38 Pulse 84 01/31/22 11:31 Resp 18 01/31/22 10:06 BP 130/77 01/31/22 08:38 Pulse Ox 92 L 01/31/22 08:38 FiO2 Intake & Output 01/30/22 01/31/22 01/31/22 18:59 06:59 18:59 Intake Total 236 540 Output Total 1350 200 Balance -1114 340 Intake: Oral 236 540 Output: Urine 1350 200 Other: Voiding Method External Catheter External Catheter External Catheter - Exam No acute distress, oriented 3. Currently on 2 L. This is her home dose. No respiratory difficulty or distress. No use of accessory muscles or conversational dyspnea. HEENT examination is grossly unremarkable. Neck supple. Full range of motion. No adenopathy thyromegaly or neck vein distention. Cervical collar in place. Cardiovascular examination reveals regular rhythm rate. S1-S2 normal. No S3 or S4. No discernible murmur noted. Heart rate 84 bpm. Lungs reveal mostly clear breath sounds. Minimal rhonchi. No wheezes or crackles. Breath sounds equal bilaterally. Saturations are 93 %. Abdomen soft bowel sounds are heard. No masses or tenderness. Extremities reveal a very painful, swollen left upper extremity. She could hardly move it. The rest of the extremities appear normal. Skin is without rash or lesion. Neurologic examination is brief but nonfocal. - Labs CBC & Chem 7: 01/29/22 08:53 01/30/22 09:02 Labs: Abnormal Lab Results - Last 24 Hours (Table) 01/30/22 01/30/22 01/30/22 Range/Units 11:53 16:42 20:14 POC Glucose (mg/dL) 169 H 117 H 149 H (70-110) mg/dL Microbiology - Last 24 Hours (Table) 01/26/22 15:10 Blood Culture - Preliminary Blood No Growth after 96 hours 01/26/22 15:25 Blood Culture - Preliminary Blood No Growth after 96 hours 01/28/22 08:00 Gram Stain - Final Sputum Sputum Culture - Final Aleida albicans Assessment and Plan Assessment: Left upper extremity DVT, with pain, swelling, and immobility of the extremity. Multiple osseous lesions, consistent with metastatic lung cancer. Recent C3-C7 surgery, 12/28/2021 at [facility]. History of severe oxygen-dependent COPD. Right upper lobectomy, for non-small cell lung cancer, 2005. FDG avid 1.4 cm lesion left upper lobe, status post SBRT. Right lower extremity DVT. History of hyperlipidemia. History of hypertension. History of gastroesophageal reflux disease. Plan: Plan 01/28/2022. The patient is not having much in the way pulmonary issues. He was not admitted for a COPD exacerbation. She is not having any fever or chills. Breathing is stable. She does cough occasionally, and produces a small amount of phlegm. Nothing to really suggest active pneumonia or respiratory infection. I will check a pro-calcitonin level. If it is normal, the antibiotics can be discontinued, unless there is another source of infection. Additional recommendations and suggestions are forthcoming. Plan dated 01/29/2022. The patient to be discharged to the intermediate. She may benefit very clear today we went into see her. She continues on oxygen at 2 L. Cervical collar in place. The patient is still complaining of pain and swelling in poor mobility in that left upper extremity. She had a recent C3 to C7 procedure, which did no t improve the left upper extremity as anticipated. Medical oncology saw the patient, and ordered another CAT scan. They were requesting a biopsy of the lesion of the left upper lobe. We never biopsied this lesion, because of her severe COPD. We chose rather, to subject her to stereotactic body radiotherapy. We will continue to follow make recommendations along the way. Prognosis is guarded. Plan dated 01/30/2022. The patient refuses discharged to intermediate yesterday. She was placed on long-acting morphine. Her respiratory status is stable. We will see the patient moving forward only as needed. The patient does have a lesion in the left upper lobe. The patient underwent stereotactic body radiotherapy, because we thought the risk of doing bronchoscopy and biopsy, were too great in this patient with severe COPD. This was passed onto oncology. Continue see the patient only as needed. Prognosis is guarded. Plan dated 01/31/2022. The patient has better pain control, with the long-acting morphine. The patient's respiratory status is at baseline. No additional recommendations are made at this time. Labs, x-rays, and medications are reviewed. Vital signs are stable with a temperature 97.9, heart rate 86, respiratory rate 18, blood pressure 130/77, and saturations of 94%. We will continue to follow make recommendations along the way. Time with Patient: Less than 30
[2022-01-31 12:11] LABS: Glucose,Whole Blood 120 mg/dL (70-110)
[2022-01-31 16:30] LABS: Glucose,Whole Blood 120 mg/dL (70-110)
[2022-01-31] MEDS ORDERED: MAGNESIUM HYDROXIDE 2,400 MG/10 ML CUP PO PRN (16:33)
[2022-01-31] MEDS ORDERED: bisacodyL 10 MG SUPP RECTAL STA (17:50)
[2022-01-31 19:51] LABS: Glucose,Whole Blood 118 mg/dL (70-110)
[2022-01-31] MEDS: CYANOCOBALAMIN 500 MCG TAB PO SCH (22:33)
[2022-01-31] MEDS: DOXAZOSIN 4 MG TAB PO SCH (22:33)
[2022-01-31] MEDS: CHOLECALCIFEROL 25 MCG (1000 IU) TABLET PO SCH (22:33)
[2022-01-31] MEDS: ASPIRIN 81 MG PO SCH (22:33)
[2022-01-31] MEDS: PRAVASTATIN SODIUM 40 MG TAB PO SCH (22:34)
--- NOTE | 2022-02-01 00:50 | P.PN ---
Subjective Progress Note Date: 01/30/22 Patient is a 81-year-old female with a known history of lung cancer at the right upper lobe resection in 2005, left arm pain, hypertension, hyperlipidemia, GERD who is on follow-up with oncology as an outpatient presents to ER with complaints of generalized weakness. Patient is having left upper extremity weakness and recently had cervical spine surgery in December 2021. Patient states that she is becoming more weak and also having left arm pain which is not resolved after cervical surgery. Patient was recommended PET scan as an outpatient and was supposed to follow-up with oncology. Patient states that she is feeling weak and also unable to get physical therapy due to left arm pain. Denies any fever or chills. No nausea vomiting abdominal pain or diarrhea. No complaints of chest pain shortness of breath. Chest x-ray showed patchy airspace disease within the upper lung around region of known spiculated nodule. This may related to atelectasis versus infiltrate versus worsening cancer. EKG showed sinus rhythm. Laboratory data showed WBC 9.3 hemoglobin 12.3 and platelets 335 Sodium 132 potassium 4.3 chloride 89 bicarb is 39 BUN 13 creatinine 0.95 Lactic acid 0.8, troponin 0.051, 0.056 and 0.055 and albumin 3.1 Urinalysis showed large blood moderate leukocyte esterase with elevated RBCs and WBCs. 01/27/2022 Patient is currently in the MedSurg unit. Awake alert and oriented x3. Still complains of left upper extremity pain and pain medications were titrated as per oncology recommendations. Patient has been afebrile. No complaints of chest pain or shortness of breath. Patient was seen by cardiology and reviewed 2D echocardiogram done at [facility] which showed ejection fraction 6065% and no significant wall motion or valvular abnormalities noted. Unlikely ACS. No nausea vomiting or abdominal pain or diarrhea. No complaints of worsening respiratory status. Patient is being continued on antibiotics, ceftriaxone and azithromycin. Laboratory data showed WBC 7.9 hemoglobin 11.8 and platelets 306 Sodium 134 potassium 4.2 chloride 93 bicarb is 38 BUN 24 and creatinine 0.77 Urine cultures and blood cultures negative so far. 01/28/2022 Patient is currently resting in bed. Awake alert and oriented x3. She complains of generalized weakness. Left upper extremity pain is better and was started on dexamethasone as per oncology. No complaints of chest pain or shortness of breath. Oncology is on board. Recommended PET scan and also getting records from her pr ior oncologist. Farheen level greater showed sodium 136 potassium 4.7 chloride 93 bicarb is 38 BUN 18 and creatinine 0.7 and blood sugar is 117 and procalcitonin level is 0.22 Patient is doing Gundrum ceftriaxone and completed 3 days of azithromycin. 01/29/2022 Patient is lying in the bed. Awake alert and oriented x3. No complaints of chest pain or shortness of breath. Currently requiring 3 L oxygen via nasal cannula. Pulmonology recommends outpatient PET scan. Patient was seen by pulmonary and recommended CT thorax. Lung biopsy could not be done due to severe COPD and chronic hypoxic and hypercapnic respiratory failure. Laboratory test today showed WBC 8.1 hemoglobin 12.4 and platelets 385 Sodium 134 potassium 4.9 chloride 90 bicarb is 39 BUN 22 and creatinine 0.79 blood sugar 142. Anticipate discharge to longterm versus home with home physical therapy. Patient does not want to go to longterm. 01/30/2022 Patient is currently resting in bed. No complaints of chest pain. Requiring oxygen 3 L by nasal cannula. Left arm pain is improved with MS Contin 30 mg every 12 hourly and was also started on dexamethasone 4 mg IV push 3 times daily. Oncology is on board. CT chest done yesterday showed relatively stable size of spiculated left upper lobe lung mass. Increasing left upper reticular interlobular septal opacities. Increased AP window mediastinal lymph nodes suggesting possible progression of disease. Bilateral renal colliculi with 1.5 cm regardlessly right renal pelvis. Stable ascending aortic aneurysm up to 4.6 cm. Laboratory data showed sodium 133 potassium 4.6 chloride 89 bicarb is 38 BUN 27 creatinine 0.76 and blood sugar is 1 4020 calcium 9.1. Clinical medications reviewed. Objective - Vital Signs Vital signs: Vital Signs Temp 97.5 F L 01/30/22 08:39 Pulse 84 01/30/22 14:58 Resp 18 01/30/22 14:58 BP 143/92 01/30/22 11:24 Pulse Ox 94 L 01/30/22 11:24 FiO2 Intake & Output 01/29/22 01/30/22 01/30/22 18:59 06:59 18:59 Intake Total 540 118 Output Total 300 1650 1350 Balance 240 -1650 -1232 Intake: Oral 540 118 Output: Urine 300 1650 1350 Other: Voiding Method External Catheter External Catheter External Catheter # Voids 2 - Exam PHYSICAL EXAMINATION: Patient is lying in the bed comfortably, no acute distress, awake alert and oriented.. HEENT: Normocephalic. Neck is supple. Pupils reactive. Nostrils clear. Oral cavity is moist. Neck reveals no JVD, carotid bruits, or thyromegaly. CHEST EXAMINATION: Trachea is central. Symmetrical expansion. Lung whitfield clear to auscultation and percussion. Bibasilar diminished sounds. CARDIAC: Normal S1, S2 with no gallops. No murmurs ABDOMEN: Soft. Bowel sounds normal. No organomegaly. No abdominal bruits. Extremities: Left upper extremity swelling and tenderness.. No clubbing or cyanosis Neurologically awake, alert, oriented x3 with well-coordinated movements. No focal deficits noted Skin: No rash or skin lesions. Psychiatric: Cooperative. Nonsuicidal Musculoskeletal: No joint swelling or deformity. Left arm tenderness and decreased range of motion. - Labs CBC & Chem 7: 01/29/22 08:53 01/30/22 09:02 Labs: Abnormal Lab Results - Last 24 Hours (Table) 01/29/22 01/29/22 01/30/22 Range/Units 16:53 22:18 06:12 Sodium (137-145) mmol/L Chloride (98-107) mmol/L Carbon Dioxide (22-30) mmol/L BUN (7-17) mg/dL Glucose (74-99) mg/dL POC Glucose (mg/dL) 217 H 161 H 138 H (70-110) mg/dL 01/30/22 01/30/22 Range/Units 09:02 11:53 Sodium 133 L (137-145) mmol/L Chloride 89 L (98-107) mmol/L Carbon Dioxide 38 H (22-30) mmol/L BUN 27 H (7-17) mg/dL Glucose 142 H (74-99) mg/dL POC Glucose (mg/dL) 169 H (70-110) mg/dL Microbiology - Last 24 Hours (Table) 01/28/22 08:00 Gram Stain - Final Sputum Sputum Culture - Final Aleida albicans 01/26/22 15:25 Blood Culture - Preliminary Blood No Growth after 72 hours 01/26/22 15:10 Blood Culture - Preliminary Blood No Growth after 72 hours Assessment and Plan Assessment: Generalized weakness and left arm pain. improved. Left upper lobe patchy infiltrate with possible atelectasis versus pneumonia Urinary tract infection. cx negative Lung cancer with history of left upper lobe resection in 2005 and disease progression recently. Scheduled for PET scan as outpatient Recently diagnosed DVT of the right lower extremity and left upper extremity. Currently on Eliquis. Elevated troponin level Unlikely ACS. Recent echocardiogram at [facility] showed normal ejection fraction and no significant wall motion abnormalities noted. Hypertension Hyperlipidemia GERD Plan: Patient complted abx course ceftriaxone azithromycin. Follow blood cultures and urine cultures negative .Patient was started on pain management and dexamethasone as per oncology recommendations. Pulmonary was consulted due to history of lung mass. Continue with pain management. MS contin 30mg BID Continue with anticoagulation with Eliquis. Follow-up closely. Discussed with the patient and her at bedside in detail. Prognosis is guarded at this time. Patient is being followed by oncology, cardiology and pulmonary. Stay discharged to ECF due to generalized debility and pain. Time with Patient: Greater than 30
--- NOTE | 2022-02-01 00:52 | P.PN ---
Subjective Progress Note Date: 01/31/22 Patient is a 81-year-old female with a known history of lung cancer at the right upper lobe resection in 2005, left arm pain, hypertension, hyperlipidemia, GERD who is on follow-up with oncology as an outpatient presents to ER with complaints of generalized weakness. Patient is having left upper extremity weakness and recently had cervical spine surgery in December 2021. Patient states that she is becoming more weak and also having left arm pain which is not resolved after cervical surgery. Patient was recommended PET scan as an outpatient and was supposed to follow-up with oncology. Patient states that she is feeling weak and also unable to get physical therapy due to left arm pain. Denies any fever or chills. No nausea vomiting abdominal pain or diarrhea. No complaints of chest pain shortness of breath. Chest x-ray showed patchy airspace disease within the upper lung around region of known spiculated nodule. This may related to atelectasis versus infiltrate versus worsening cancer. EKG showed sinus rhythm. Laboratory data showed WBC 9.3 hemoglobin 12.3 and platelets 335 Sodium 132 potassium 4.3 chloride 89 bicarb is 39 BUN 13 creatinine 0.95 Lactic acid 0.8, troponin 0.051, 0.056 and 0.055 and albumin 3.1 Urinalysis showed large blood moderate leukocyte esterase with elevated RBCs and WBCs. 01/27/2022 Patient is currently in the MedSurg unit. Awake alert and oriented x3. Still complains of left upper extremity pain and pain medications were titrated as per oncology recommendations. Patient has been afebrile. No complaints of chest pain or shortness of breath. Patient was seen by cardiology and reviewed 2D echocardiogram done at [facility] which showed ejection fraction 6065% and no significant wall motion or valvular abnormalities noted. Unlikely ACS. No nausea vomiting or abdominal pain or diarrhea. No complaints of worsening respiratory status. Patient is being continued on antibiotics, ceftriaxone and azithromycin. Laboratory data showed WBC 7.9 hemoglobin 11.8 and platelets 306 Sodium 134 potassium 4.2 chloride 93 bicarb is 38 BUN 24 and creatinine 0.77 Urine cultures and blood cultures negative so far. 01/28/2022 Patient is currently resting in bed. Awake alert and oriented x3. She complains of generalized weakness. Left upper extremity pain is better and was started on dexamethasone as per oncology. No complaints of chest pain or shortness of breath. Oncology is on board. Recommended PET scan and also getting records from her pr ior oncologist. Farheen level greater showed sodium 136 potassium 4.7 chloride 93 bicarb is 38 BUN 18 and creatinine 0.7 and blood sugar is 117 and procalcitonin level is 0.22 Patient is doing Gundrum ceftriaxone and completed 3 days of azithromycin. 01/29/2022 Patient is lying in the bed. Awake alert and oriented x3. No complaints of chest pain or shortness of breath. Currently requiring 3 L oxygen via nasal cannula. Pulmonology recommends outpatient PET scan. Patient was seen by pulmonary and recommended CT thorax. Lung biopsy could not be done due to severe COPD and chronic hypoxic and hypercapnic respiratory failure. Laboratory test today showed WBC 8.1 hemoglobin 12.4 and platelets 385 Sodium 134 potassium 4.9 chloride 90 bicarb is 39 BUN 22 and creatinine 0.79 blood sugar 142. [facility]tic[facility]ate [facility] to [facility] versus home with home physical therapy. Patient does not [facility] to go to [facility]. 01/30/2022 Patient is currently resting in bed. No complaints of chest pain. Requiring oxygen 3 L by nasal cannula. Left arm pain is improved with MS Contin 30 mg every 12 hourly and was also started on dexamethasone 4 mg IV push 3 times daily. Oncology is on board. CT chest done yesterday showed relatively stable size of spiculated left upper lobe lung mass. Increasing left upper reticular interlobular septal opacities. Increased AP window mediastinal lymph nodes suggesting possible progression of disease. Bilateral renal colliculi with 1.5 cm regardlessly right renal pelvis. Stable ascending aortic aneurysm up to 4.6 cm. Laboratory data showed sodium 133 potassium 4.6 chloride 89 bicarb is 38 BUN 27 creatinine 0.76 and blood sugar is 1 4020 calcium 9.1. 01/31/2022 Patient is currently resting in bed. Awake alert and oriented x3. Left arm pain is much improved. Currently requiring 2 L of oxygen via nasal cannula. Patient able to tolerate oral diet. No nausea vomiting abdominal pain or diarrhea. No cough or sputum production. No leg swelling anticipate discharged to extended care facility tomorrow and follow-up with oncology as an outpatient and outpatient PET scan. No complaints of chest pain. Discussed with her family at bedside in detail. Clinical medications reviewed. Objective - Vital Signs Vital signs: Vital Signs Temp 97.9 F 01/31/22 20:00 Pulse 87 01/31/22 20:00 Resp 18 01/31/22 20:00 BP 118/78 01/31/22 20:00 Pulse Ox 93 L 01/31/22 20:00 FiO2 Intake & Output 01/31/22 01/31/22 02/01/22 06:59 18:59 06:59 Intake Total 540 118 Output Total 200 800 Balance 340 -682 Intake: Oral 540 118 Output: Urine 200 800 Other: Voiding Method External Catheter External Catheter - Exam PHYSICAL EXAMINATION: Patient is lying in the bed comfortably, no acute distress, awake alert and oriented.. HEENT: Normocephalic. Neck is supple. Pupils reactive. Nostrils clear. Oral cavity is moist. Neck reveals no JVD, carotid bruits, or thyromegaly. CHEST EXAMINATION: Trachea is central. Symmetrical expansion. Lung whitfield clear to auscultation and percussion. Bibasilar diminished sounds. CARDIAC: Normal S1, S2 with no gallops. No murmurs ABDOMEN: Soft. Bowel sounds normal. No organomegaly. No abdominal bruits. Extremities: Left upper extremity swelling and tenderness.. No clubbing or cyanosis Neurologically awake, alert, oriented x3 with well-coordinated movements. No focal deficits noted Skin: No rash or skin lesions. Psychiatric: Cooperative. Nonsuicidal Musculoskeletal: No joint swelling or deformity. Left arm tenderness and decreased range of motion. - Labs CBC & Chem 7: 01/29/22 08:53 01/30/22 09:02 Labs: Abnormal Lab Results - Last 24 Hours (Table) 01/31/22 01/31/22 01/31/22 Range/Units 11:59 16:29 19:50 POC Glucose (mg/dL) 120 H 120 H 118 H (70-110) mg/dL Microbiology - Last 24 Hours (Table) 01/26/22 15:25 Blood Culture - Preliminary Blood No Growth after 120 hours 01/26/22 15:10 Blood Culture - Preliminary Blood No Growth after 120 hours Assessment and Plan Assessment: Generalized weakness and left arm pain. improved. Left upper lobe patchy infiltrate with possible atelectasis versus pneumonia Urinary tract infection. cx negative Lung cancer with history of left upper lobe resection in 2006 and disease progression recently. Scheduled for PET scan as outpatient Recently diagnosed DVT of the right lower extremity and left upper extremity. Currently on Eliquis. Elevated troponin level Unlikely ACS. Recent echocardiogram at [facility] showed normal ejection fraction and no significant wall motion abnormalities noted. Hypertension Hyperlipidemia GERD Plan: Patient complted abx course ceftriaxone azithromycin. Follow blood cultures and urine cultures negative .Patient was started on pain management and dexamethasone as per oncology recommendations. Pulmonary was consulted due to history of lung mass.Patient is hypercapnic and biopsy lung was not done due to her respiratory status. Continue with pain management. MS contin 30mg BID Continue with anticoagulation with Eliquis. Follow-up closely. Discussed with the patient and her at bedside in detail. Prognosis is guarded at this time. Patient is being followed by oncology, cardiology and pulmonary. to be discharged to ECF due to generalized debility and pain. Patient will need outpatient follow-up with oncology for PET scan and further management. Time with Patient: Greater than 30
[2022-02-01] MEDS: SENNOSIDES-DOCUSATE SODIUM 1 EACH TAB PO SCH ×3 (01:01→21:17)
[2022-02-01] MEDS: DEXAMETHASONE SOD PHOSPHATE 4 MG/ML 1 ML VIAL IVP SCH ×4 (01:02→21:17)
[2022-02-01] MEDS: LEVOTHYROXINE 125 MCG TAB PO SCH (06:20)
[2022-02-01 06:29] LABS: Glucose,Whole Blood 104 mg/dL (70-110)
[2022-02-01] MEDS: INSULIN ASPART (NovoLOG) 100 UNIT/ML VIAL SQ SCH ×4 (06:42→20:57)
[2022-02-01 08:03] LABS: Basophils % (A) 0 %; Eosinophils % (A) 0 %; HCT 39.7 % (34.0-46.0); HGB 12.5 gm/dL (11.4-16.0); Hypochromasia Slight; Lymphocytes # (A) 0.5 k/uL (1.0-4.8); Lymphocytes % (A) 5 %; MCH 29.8 pg (25.0-35.0); MCHC 31.5 g/dL (31.0-37.0); MCV 94.8 fL (80.0-100.0); Monocytes # (A) 0.3 k/uL (0-1.0); Monocytes % (A) 3 %; Neutrophils # (A) 8.5 k/uL (1.3-7.7); Neutrophils % (A) 90 %; Platelet Count 360 k/uL (150-450); RBC 4.19 m/uL (3.80-5.40); WBC 9.5 k/uL (3.8-10.6)
[2022-02-01 08:16] LABS: Calcium 8.6 mg/dL (8.4-10.2); Potassium 4.6 mmol/L (3.5-5.1)
[2022-02-01] MEDS: SYMBICORT 160-4.5 MCG INHALER INHALATION SCH ×2 (08:34→19:03)
[2022-02-01] MEDS: APIXABAN 5 MG TAB PO SCH ×2 (09:59→21:17)
[2022-02-01] MEDS: buPROPion SR 100 MG TABLET.ER PO SCH ×2 (09:59→21:25)
[2022-02-01] MEDS: MONTELUKAST 10 MG TAB PO SCH (09:59)
[2022-02-01] MEDS: FUROSEMIDE 40 MG TAB PO SCH (09:59)
[2022-02-01] MEDS: PANTOPRAZOLE 40 MG TABLET PO SCH ×2 (10:00→21:18)
[2022-02-01] MEDS: SPIRONOLACTONE 25 MG TAB PO SCH (10:00)
[2022-02-01] MEDS: GABAPENTIN 100 MG CAP PO SCH (10:00)
[2022-02-01] MEDS: allopurinoL 100 MG TAB PO SCH ×2 (10:00→21:17)
[2022-02-01] MEDS: MORPHINE SULFATE ER 30 MG TABLET PO SCH ×2 (10:01→21:17)
[2022-02-01 11:28] VITALS: BMI 33.2
[2022-02-01 11:40] LABS: Glucose,Whole Blood 150 mg/dL (70-110)
--- NOTE | 2022-02-01 12:55 | P.CONS ---
History of Present Illness - Reason for Consult Consult date: 02/01/22 wound care - History of Present Illness This Is an 81-year-old patient being seen by the wound care center on 3 for nonhealing ulceration to the right buttocks. Patient has a stage II pressure ulcer to the right buttocks and measures presently 0.5 x 0.5 by 0.1 cm fat layer is exposed, there is some redness and excoriation noted. Patient's past medical history significant for her fibrillation, coronary artery disease, GERD, angina, hypertension, hyperlipidemia, osteoarthritis, stage III chronic kidney disease. Patient had history of MRSA to the right foot in 2017. She is a former smoker. And she resides at [facility]. Review Of Systems: Constitutional: No fever, no chills, no night sweats. No weight change. No weakness, fatigue or lethargy. No daytime sleepiness. Integumentary:reports wounds, no lesions. No rash or pruritus. No unusual bruising. No change in hair or nails. Physical exam: General Appearance: Alert, cooperative, no distress, appears stated age. Skin: See HPI all other Skin color, texture, tugor normal, no rashes or lesions. Neurologic: Alert oriented x3 Assessment: 1. Stage II pressure ulcer right buttocks Plan: 1. Apply triad daily and as needed. Patient to sit on air filled cushion change position every 2 hours or as appropriate. Thank you for the consultation any questions please contact the wound care center DNP note has been reviewed and discussed with Dr. Tejada and the impression and plan of care has been directed as dictated. Past Medical History Past Medical History: Cancer, GERD/Reflux, Hyperlipidemia, Hypertension, Pneumonia Additional Past Medical History / Comment(s): lung cancer History of Any Multi-Drug Resistant Organisms: None Reported Past Surgical History: Joint Replacement Additional Past Surgical History / Comment(s): right upper lobe removal from lung cancer 2005, bilat knee, R shoulder Past Anesthesia/Blood Transfusion Reactions: No Reported Reaction Past Psychological History: No Psychological Hx Reported Past Alcohol Use History: Occasional Past Drug Use History: None Reported Medications and Allergies Home Medications Medication Instructions Recorded Confirmed Type Albuterol Inhaler [Ventolin Hfa 2 puff INHALATION RT-QID PRN 08/23/19 01/26/22 History Inhaler] Apixaban [Eliquis] 5 mg PO BID 08/23/19 01/26/22 History Aspirin EC [Ecotrin Low Dose] 81 mg PO HS 08/23/19 01/26/22 History Budesonide/Formoterol Fumarate 2 puff INHALATION RT-BID 08/23/19 01/26/22 History [Symbicort 160-4.5 Mcg Inhaler] Cyanocobalamin (Vitamin B-12) 1,000 mcg PO HS 08/23/19 01/26/22 History [Vitamin B-12] Doxazosin [Cardura] 4 mg PO HS 08/23/19 01/26/22 History Montelukast Sodium [Singulair] 10 mg PO DAILY 08/23/19 01/26/22 History Omeprazole [PriLOSEC] 20 mg PO BID 08/23/19 01/26/22 History Pravastatin Sodium [Pravachol] 40 mg PO HS 08/23/19 01/26/22 History Tolterodine ER [Detrol LA] 4 mg PO DAILY 08/23/19 01/26/22 History Umeclidinium [place] [Incruse 1 puff INHALATION RT-DAILY 08/23/19 01/26/22 History Ellipta] Vit C/E/Zn/Coppr/Lutein/Zeaxan 2 cap PO HS 08/23/19 01/26/22 History [Preservision Areds 2 Softgel] allopurinoL [Zyloprim] 100 mg PO BID 08/23/19 01/26/22 History Cholecalciferol [Vitamin D3 (25 50 mcg PO HS 01/26/22 01/26/22 History Mcg = 1000 Iu)] Furosemide [Lasix] 40 mg PO DAILY 01/26/22 01/26/22 History Gabapentin [Neurontin] 100 mg PO TID 01/26/22 01/26/22 History Hydrocodone/Acetaminophen 1 tab PO Q6H PRN 01/26/22 01/26/22 History [Hydrocodone/Acetaminophen 7.5-325] Levothyroxine Sodium [Synthroid] 125 mcg PO DAILY 01/26/22 01/26/22 History Spironolactone [Aldactone] 25 mg PO DAILY 01/26/22 01/26/22 History buPROPion HCL [buPROPion HCL SR] 100 mg PO BID 01/26/22 01/26/22 History Allergies Allergy/AdvReac Type Severity Reaction Status Date / Time amlodipine Allergy Swelling Verified 01/26/22 15:12 atorvastatin Allergy Unknown Verified 01/26/22 15:12 meperidine [From Demerol] Allergy Nausea & Verified 01/26/22 15:12 Vomiting Physical Exam Vitals: Vital Signs Temp Pulse Pulse Resp BP Pulse Ox 02/01/22 08:41 98.3 F 77 16 122/77 94 L 02/01/22 08:36 94 L 02/01/22 04:00 97.8 F 77 18 124/73 93 L 02/01/22 02:00 77 18 02/01/22 00:00 98.2 F 84 16 118/75 93 L 01/31/22 20:00 97.9 F 87 18 118/78 93 L 01/31/22 17:04 85 18 147/90 93 L 01/31/22 15:40 87 18 01/31/22 15:38 85 01/31/22 15:26 84 Intake and Output 01/31/22 02/01/22 02/01/22 22:59 06:59 14:59 Output Total 800 900 Balance -800 -900 Output: Urine 800 900 Other: Voiding Method External Catheter External Catheter External Catheter # Bowel Movements 2 Weight 102 kg Results CBC & Chem 7: 02/01/22 07:00 02/01/22 07:00 Labs: Abnormal Lab Results - Last 24 Hours (Table) 01/31/22 01/31/22 02/01/22 Range/Units 16:29 19:50 07:00 Neutrophils # 8.5 H (1.3-7.7) k/uL Lymphocytes # 0.5 L (1.0-4.8) k/uL Sodium (137-145) mmol/L Chloride (98-107) mmol/L Carbon Dioxide (22-30) mmol/L BUN (7-17) mg/dL POC Glucose (mg/dL) 120 H 118 H (70-110) mg/dL 02/01/22 02/01/22 Range/Units 07:00 11:38 Neutrophils # (1.3-7.7) k/uL Lymphocytes # (1.0-4.8) k/uL Sodium 131 L (137-145) mmol/L Chloride 88 L (98-107) mmol/L Carbon Dioxide 35 H (22-30) mmol/L BUN 47 H (7-17) mg/dL POC Glucose (mg/dL) 150 H (70-110) mg/dL Microbiology - Last 24 Hours (Table) 01/26/22 15:25 Blood Culture - Preliminary Blood No Growth after 120 hours 01/26/22 15:10 Blood Culture - Preliminary Blood No Growth after 120 hours Assessment and Plan (1) Stage II pressure ulcer of right buttock Current Visit: Yes Status: Acute Code(s): L89.312 - PRESSURE ULCER OF RIGHT BUTTOCK, STAGE 2 SNOMED Code(s): 37333086372373
--- NOTE | 2022-02-01 13:09 | P.PN ---
Subjective Progress Note Date: 02/01/22 81-year-old female who presented to the emergency department, via EMS, on January 26, complaining of generalized weakness. In addition, the patient had recent cervical spine surgery, at level C3 through C7, December 28, at [facility]. The patient states that her left arm pain, and swelling, as well as lack of mobility, preceded the surgery. She had the surgery hoping that he would help to improve the left upper extremity. Unfortunately it has not. She denies any difficulty breathing, coughing, wheezing, or phlegm production. No abdominal pain, nausea, vomiting, or diarrhea. No chest pain. No urinary complaints. The patient does have a history of lung cancer, GERD, hyperlipidemia, hypertension, and pneumonia. She's had a previous right upper lobectomy, 2005 for her lung cancer. In addition, she has a nodule in the left upper lobe, thought to possibly be lung cancer as well. The patient is on 3 L of oxygen. The left upper lobe pulmonary nodule is being followed with serial CT scanning. The most recent computed tomography scan showed that the nodule was stable in size. Because of a abnormal PET scan of the nodule, the patient was treated with stereotactic body radiotherapy (SBRT) Doppler of the lower extremities reveal no DVT in the right leg, and a possible chronic DVT in the left leg. On today's evaluation, the patient is on anticoagulation and she is currently on Eliquis 5 mg by mouth twice a day. As mentioned, she has a left lower extremity DVT. The blood work from today shows a white cell count of 9.7 with a hemoglobin of 12.7 and a platelet count of 360. BUN is 47 with a creatinine of 0.8 and a sodium level is at 131. The CAT scan of the chest that was done on 01/29/2022 showed estimated left upper lobe lesion for which the patient received SBR T. There was also evidence of mediastinal lymphadenopathy with interval progression. There was bilateral renal calculi and a stable ascending aortic aneurysm measuring 4.6 cm and a trace left-sided pleural effusion. There was no evidence of any filling defect to suggest pulmonary embolism. The patient had instigated masslike density in the left upper lobe measuring 2.7 x 1.2 cm. Also, the Doppler of the lower extremity showed mild chronic DVT in the left femoral vein. No evidence of any DVT on the right. She is currently wearing a neck collar. She is also on Decadron 4 mg IV 3 times a day she also has a stage II pressure ulcer on her right buttocks and she is being seen by wound services. Objective - Vital Signs Vital signs: Vital Signs Temp 98.3 F 02/01/22 08:41 Pulse 77 02/01/22 08:41 Resp 16 02/01/22 08:41 BP 122/77 02/01/22 08:41 Pulse Ox 94 L 02/01/22 08:41 FiO2 Intake & Output 01/31/22 02/01/22 02/01/22 18:59 06:59 18:59 Intake Total 118 Output Total 800 900 Balance -682 -900 Weight 102 kg Intake: Oral 118 Output: Urine 800 900 Other: Voiding Method External Catheter External Catheter External Catheter # Bowel Movements 2 - Exam No acute distress, oriented 3. Currently on 2 L. This is her home dose. No respiratory difficulty or distress. No use of accessory muscles or conversational dyspnea. HEENT examination is grossly unremarkable. Neck supple. Full range of motion. No adenopathy thyromegaly or neck vein distention. Cervical collar in place. Cardiovascular examination reveals regular rhythm rate. S1-S2 normal. No S3 or S4. No discernible murmur noted. Heart rate 84 bpm. Lungs reveal mostly clear breath sounds. Minimal rhonchi. No wheezes or c rackles. Breath sounds equal bilaterally. Saturations are 93 %. Abdomen soft bowel sounds are heard. No masses or tenderness. Extremities reveal a very painful, swollen left upper extremity. She could hardly move it. The rest of the extremities appear normal. Skin is without rash or lesion. Neurologic examination is brief but nonfocal. - Labs CBC & Chem 7: 02/01/22 07:00 02/01/22 07:00 Labs: Abnormal Lab Results - Last 24 Hours (Table) 01/31/22 01/31/22 02/01/22 Range/Units 16:29 19:50 07:00 Neutrophils # 8.5 H (1.3-7.7) k/uL Lymphocytes # 0.5 L (1.0-4.8) k/uL Sodium (137-145) mmol/L Chloride (98-107) mmol/L Carbon Dioxide (22-30) mmol/L BUN (7-17) mg/dL POC Glucose (mg/dL) 120 H 118 H (70-110) mg/dL 02/01/22 02/01/22 Range/Units 07:00 11:38 Neutrophils # (1.3-7.7) k/uL Lymphocytes # (1.0-4.8) k/uL Sodium 131 L (137-145) mmol/L Chloride 88 L (98-107) mmol/L Carbon Dioxide 35 H (22-30) mmol/L BUN 47 H (7-17) mg/dL POC Glucose (mg/dL) 150 H (70-110) mg/dL Microbiology - Last 24 Hours (Table) 01/26/22 15:25 Blood Culture - Preliminary Blood No Growth after 120 hours 01/26/22 15:10 Blood Culture - Preliminary Blood No Growth after 120 hours Assessment and Plan Plan: Left upper extremity DVT, with pain, swelling, and immobility of the extremity. Addition to that, the patient is a chronic DVT involving the right femoral vein. The patient is currently on anticoagulation with Eliquis. Multiple osseous lesions, consistent with metastatic lung cancer. Recent C3-C7 surgery, 12/28/2021 at [facility]. History of severe oxygen-dependent COPD. Right upper lobectomy, for non-small cell lung cancer, 2005. FDG avid 1.4 cm lesion left upper lobe, status post SBRT. Right lower extremity DVT. History of hyperlipidemia. History of hypertension. History of gastroesophageal reflux disease. Plan: Patient continues to have left upper extremity weakness The patient is currently on anticoagulation with Eliquis Switch this patient to oral Decadron Follow-up with spine surgery Follow-up with oncology discharge planning is in progress
--- NOTE | 2022-02-01 14:57 | P.DS ---
Providers Date of admission: 01/26/22 15:07 Attending physician: Segundo Armenta Consults: 01/26/22 15:07 Consult Physician Routine Consulting Provider: [facility] Consult Reason/Comments: Elevated troponin Do you want consulting provider notified?: Yes 01/26/22 15:09 Consult Physician Routine Consulting Provider: Manolo Nam Consult Reason/Comments: Lung mass Do you want consulting provider notified?: Yes 01/28/22 10:16 Consult Physician Routine Consulting Provider: Tam Collier Consult Reason/Comments: cancer, weakness, sees outpatient Do you want consulting provider notified?: Yes 01/29/22 12:38 Consult Physician Routine Consulting Provider: Travis Muse Consult Reason/Comments: suspect metastatic lung cancer, pain Do you want consulting provider notified?: Yes Primary care physician: Oscar Redd [facility] Course: Final Diagnosis Generalized weakness and left arm pain. Improved. Left upper lobe patchy infiltrate with possible atelectasis versus pneumonia procalcitonin negative 0.22. Urinary tract infection without sepsis present on admission, culture negative Lung cancer with history of left upper lobe resection in 2005 and disease progression recently. Scheduled for PET scan as outpatient Recently diagnosed DVT of the right lower extremity and left upper extremity. Currently on Eliquis. Elevated troponin level Unlikely ACS. Recent echocardiogram at [facility] showed normal ejection fraction and no significant wall motion abnormalities noted. Hypertension Hyperlipidemia GERD Discharge Disposition Patient is stable for discharge to subacute rehab in overall guarded condition. Patient with recent cervical spine surgery at [facility], currently wearing C- Spine collar per surgeon recommendations from prior hospital stay. Patient also to follow up with oncology outpatient once D/C'd for rehab and schedule PET scan. Continue pain management and bowel regimen. Recommend to elevate her left upper extremity on pillows. Hold furosemide and aldactone for 2 days and can resume. Decreased lasix to 20 mg daily. Repeat labs in 2 days to monitor sodium level. Hospital Course This is an 81 year old female with known history of lung cancer status post right upper lobe resection in 2005, hypertension, hyperlipidemia, GERD. Patient is sent to the hospital from oncology reports generalized weakness as well as left extremity weakness and discomfort mostly neuropathic pain around the wrist area. Patient has a recent history of cervical spine surgery in December 2021 [facility]. Since then she's becoming more weak and having left arm pain. Patient does state that she was diagnosed with acute DVT in the left upper extremity at [facility] prior to her cervical spine surgery. Her eliquis was on hold during that time pending surgery when she developed upper extremity swelling. She does have history of right DVT, left leg is negative for DVT. On admission patient had a chest x-ray completed which shows patchy airspace with normal upper lung region of known spiculated nodule which is Atelectasis Versus Infiltrate Versus Worsening Cancer. Her Procalcitonin Level Was Found to Be 0.22 Which Is Not Suggestive of a Bacterial Pneumonia Process. She Denies Fever or Chills, No Shortness of Breath, No Chest Pain, however she is significantly weak. She has been started on MS contin and will trial pregabalin 100 mg BID for upper extremity neurophatic pain. Patient will be discharged to subacute rehab and will need to see oncology outpatient once discharged from rehab. PET scan will be scheduled as an outpatient once oncology follows up with patient. She did have troponin elevation this admission was evaluated by cardiology and recommended to follow up with her own top lift nailer on discharge. Sodium level 132 on admission, had improved slightly and back down to 131, will recommend to hold lasix and aldactone for 2 days on discharge and repeat labs. Lasix will be decreased to 20 mg PO daily. Patient will also need to follow up with pulmonary on discharge. 02/01/2022 Patient is monitored today sitting up in bed. She reports pain to the left arm rating a 0/0 at rest and 10/10 with movement. Medications have been further adjusted and recommend to elevated left arm when resting. Has equal hand grasp. Left arm is edematous has +2 peripheral pulse. She continues in C Collar. Cardiology, pulmonary have cleared for DC. Will discharge on oral steroid taper. No shortness of breath no chest pain. She has had a BM 2 days ago and reports feeling slightly constipated. Abdomen is soft and nontender. She has normoactive bowel sounds in all 4 quadrants. She is alert x 3. Sodium 131 today. Total time taken in discharge planning greater than 35 minutes. Please see medication reconciliation for a list of current medication. Thank you for allowing us to participate in the care of this patient. The impression and plan of care has been dictated by Bessy Duong, Nurse Practitioner as directed. Dr. Daniel MD I have performed a history and physical examination and medical decision making of this patient, discussed the same with the dictator, and agree with the dictators assessment and plan as written, documented as a scribe. Based on total visit time, I have performed more than 50% of this visit. Plan - Discharge Summary Discharge Rx Participant: Yes New Discharge Prescriptions: New Hydrophilic Cream [Kerodex 71 Cream] 1 applic TOPICAL DAILY #1 gm polyethylene glycoL 3350 [Miralax] 17 gm PO DAILY PRN packet PRN Reason: Constipation Sennosides-Docusate Sodium [Senokot-S] 2 each PO BID tab Lactulose [Cephulac] 10 gm PO BID PRN #30 ml PRN Reason: Constipation Morphine Sulfate ER [Ms Contin] 30 mg PO Q12HR 2 Days #4 tab Gabapentin [Neurontin] 200 mg PO TID #6 cap Continue Tolterodine ER [Detrol LA] 4 mg PO DAILY Cyanocobalamin (Vitamin B-12) [Vitamin B-12] 1,000 mcg PO HS Budesonide/Formoterol Fumarate [Symbicort 160-4.5 Mcg Inhaler] 2 puff INHALATION RT-BID Apixaban [Eliquis] 5 mg PO BID Vit C/E/Zn/Coppr/Lutein/Zeaxan [Preservision Areds 2 Softgel] 2 cap PO HS Doxazosin [Cardura] 4 mg PO HS Albuterol Inhaler [Ventolin Hfa Inhaler] 2 puff INHALATION RT-QID PRN PRN Reason: Shortness Of Breath Umeclidinium [place] [Incruse Ellipta] 1 puff INHALATION RT-DAILY Pravastatin Sodium [Pravachol] 40 mg PO HS Omeprazole [PriLOSEC] 20 mg PO BID Montelukast Sodium [Singulair] 10 mg PO DAILY Aspirin EC [Ecotrin Low Dose] 81 mg PO HS allopurinoL [Zyloprim] 100 mg PO BID buPROPion HCL [buPROPion HCL SR] 100 mg PO BID Furosemide [Lasix] 40 mg PO DAILY #0 Cholecalciferol [Vitamin D3 (25 Mcg = 1000 Iu)] 50 mcg PO HS Levothyroxine Sodium [Synthroid] 125 mcg PO DAILY Spironolactone [Aldactone] 25 mg PO DAILY #0 Discontinued Gabapentin [Neurontin] 100 mg PO TID Hydrocodone/Acetaminophen [Hydrocodone/Acetaminophen 7.5-325] 1 tab PO Q6H PRN PRN Reason: Pain Discharge Medication List Albuterol Inhaler [Ventolin Hfa Inhaler] 2 puff INHALATION RT-QID PRN 08/23/19 [History] Apixaban [Eliquis] 5 mg PO BID 08/23/19 [History] Aspirin EC [Ecotrin Low Dose] 81 mg PO HS 08/23/19 [History] Budesonide/Formoterol Fumarate [Symbicort 160-4.5 Mcg Inhaler] 2 puff INHALATION RT-BID 08/23/19 [History] Cyanocobalamin (Vitamin B-12) [Vitamin B-12] 1,000 mcg PO HS 08/23/19 [History] Doxazosin [Cardura] 4 mg PO HS 08/23/19 [History] Montelukast Sodium [Singulair] 10 mg PO DAILY 08/23/19 [History] Omeprazole [PriLOSEC] 20 mg PO BID 08/23/19 [History] Pravastatin Sodium [Pravachol] 40 mg PO HS 08/23/19 [History] Tolterodine ER [Detrol LA] 4 mg PO DAILY 08/23/19 [History] Umeclidinium [place] [Incruse Ellipta] 1 puff INHALATION RT-DAILY 08/23/19 [History] Vit C/E/Zn/Coppr/Lutein/Zeaxan [Preservision Areds 2 Softgel] 2 cap PO HS 08/23/19 [History] allopurinoL [Zyloprim] 100 mg PO BID 08/23/19 [History] Cholecalciferol [Vitamin D3 (25 Mcg = 1000 Iu)] 50 mcg PO HS 01/26/22 [History] Levothyroxine Sodium [Synthroid] 125 mcg PO DAILY 01/26/22 [History] buPROPion HCL [buPROPion HCL SR] 100 mg PO BID 01/26/22 [History] Furosemide [Lasix] 40 mg PO DAILY #0 02/01/22 [Rx] Gabapentin [Neurontin] 200 mg PO TID #6 cap 02/01/22 [Rx] Hydrophilic Cream [Kerodex 71 Cream] 1 applic TOPICAL DAILY #1 gm 02/01/22 [Rx] Lactulose [Cephulac] 10 gm PO BID PRN #30 ml 02/01/22 [Rx] Morphine Sulfate ER [Ms Contin] 30 mg PO Q12HR 2 Days #4 tab 02/01/22 [Rx] Sennosides-Docusate Sodium [Senokot-S] 2 each PO BID tab 02/01/22 [Rx] Spironolactone [Aldactone] 25 mg PO DAILY #0 02/01/22 [Rx] polyethylene glycoL 3350 [Miralax] 17 gm PO DAILY PRN packet 02/01/22 [Rx] Follow up Appointment(s)/Referral(s): Oscar Redd MD [Primary Care Provider] - 1-2 days Tam Collier DO [Doctor of Osteopathic Medicine] - 1 Week Manolo Nam MD [STAFF PHYSICIAN] - 1 Week Ambulatory/Diagnostic Orders: Basic Metabolic Panel [LAB.AMB] Time Frame: 2 Days, Location: None Selected Activity/Diet/Wound Care/Special Instructions: Continue with Triad hydrophillic cream to right buttocks daily and as needed Follow up at [facility] as needed Hold spironolactone and also furosemide for 2 days and than resume Repeat metabolic panel in 2 days outpatient to monitor sodium level Continue eliquis PET scan will be scheduled as outpatient and oncology will follow up with patient once discharged from sub acute rehab Follow up with your surgeon and top lift nailer as previous recommended Follow up with Pulmonary Discharge Disposition: TRANSFER TO SNF/ECF
[2022-02-01] MEDS ORDERED: SODIUM CHLORIDE 0.9% 1,000 ML IV SCH (15:00)
[2022-02-01] MEDS ORDERED: GABAPENTIN 100 MG CAP PO STA (15:06)
[2022-02-01] MEDS ORDERED: GABAPENTIN 100 MG CAP PO SCH (16:00)
[2022-02-01] MEDS: HYDROPHILIC CREAM 180 GM TUBE TOPICAL SCH (16:12)
[2022-02-01 16:37] LABS: Glucose,Whole Blood 123 mg/dL (70-110)
--- NOTE | 2022-02-01 20:01 | P.PN ---
Subjective Progress Note Date: 02/01/22 Principal diagnosis: Intractable pain, elevated troponins In f/u today pt reports that she is sleeping a little better, at rest her pain is manageable. Her LUE is very painful to move, not to touch, the swelling is slightly improved. Objective - Vital Signs Vital signs: Vital Signs Temp 98.3 F 02/01/22 08:41 Pulse 77 02/01/22 08:41 Resp 16 02/01/22 08:41 BP 122/77 02/01/22 08:41 Pulse Ox 94 L 02/01/22 08:41 FiO2 Intake & Output 01/31/22 02/01/22 02/01/22 18:59 06:59 18:59 Intake Total 118 Output Total 800 900 Balance -682 -900 Weight 102 kg Intake: Oral 118 Output: Urine 800 900 Other: Voiding Method External Catheter External Catheter External Catheter # Bowel Movements 2 - Constitutional General appearance: Present: cooperative, mild distress, obese - EENT Eyes: Present: anicteric sclerae, EOMI ENT: Present: hearing grossly normal - Respiratory Details: resp even and unlabored at rest - Musculoskeletal Musculoskeletal: Present: generalized weakness (prolonged bed rest) - Psychiatric Psychiatric Comment(s): anxious, frustrated Psychiatric: Present: A&O x's 3 - Labs CBC & Chem 7: 02/01/22 07:00 02/01/22 07:00 Labs: Abnormal Lab Results - Last 24 Hours (Table) 01/31/22 01/31/22 01/31/22 Range/Units 11:59 16:29 19:50 Neutrophils # (1.3-7.7) k/uL Lymphocytes # (1.0-4.8) k/uL Sodium (137-145) mmol/L Chloride (98-107) mmol/L Carbon Dioxide (22-30) mmol/L BUN (7-17) mg/dL POC Glucose (mg/dL) 120 H 120 H 118 H (70-110) mg/dL 02/01/22 02/01/22 02/01/22 Range/Units 07:00 07:00 11:38 Neutrophils # 8.5 H (1.3-7.7) k/uL Lymphocytes # 0.5 L (1.0-4.8) k/uL Sodium 131 L (137-145) mmol/L Chloride 88 L (98-107) mmol/L Carbon Dioxide 35 H (22-30) mmol/L BUN 47 H (7-17) mg/dL POC Glucose (mg/dL) 150 H (70-110) mg/dL Microbiology - Last 24 Hours (Table) 01/26/22 15:25 Blood Culture - Preliminary Blood No Growth after 120 hours 01/26/22 15:10 Blood Culture - Preliminary Blood No Growth after 120 hours Assessment and Plan (1) DVT (deep venous thrombosis) Current Visit: Yes Status: Acute Priority: High Code(s): I82.409 - ACUTE EMBOLISM AND THOMBOS UNSP DEEP VN UNSP LOWER EXTREMITY SNOMED Code(s): 521317632 (2) Adenocarcinoma, lung Current Visit: Yes Status: Acute Priority: High Code(s): C34.90 - MALIGNANT NEOPLASM OF UNSP PART OF UNSP BRONCHUS OR LUNG SNOMED Code(s): 863496178 (3) Acute cervical radiculopathy Current Visit: Yes Status: Acute Priority: High Code(s): M54.12 - RADICULOPATHY, CERVICAL REGION SNOMED Code(s): 85685507 Plan: Patient is on eliquis for recently diagnosed left upper extremity DVT and right lower extremity DVT. BLE doppler was done, no clot in RLE, chronic DVT in LLE seen. Continue elliquis. Patient does have a history of lung cancer. Over the last 2 months she has evidence of disease progression on imaging, plans were for PET scan to determine extent and for documentation of FDG avid areas as pt is not a candidate for pulmonary biopsy 2/2 to severe COPD. Plans were to treat if PET positive. Unfortunately, she required cervical surgery, as noted below. This has delayed workupand f/u and now pain control. Recent CT chest reports stable LORY mass, nodules, some mediastinal LAD may be increasing in size. Radiculopathy, s/p anterior access fusion of C4 & 5, C6 & 7. Pain is in LUE. Pain meds adjusted with tolerable pain at rest, if the LUE is moved she is in severe pain. Plan to cont analgesics as prescribed. Dose of neurontin adjusted. Medications for prevention of narcotic-induced constipation ordered. Continue steroids at current dose. It has been explained to pt repeatedly that she cannot have PET inpt. She cannot have PET if she is admitted to rehab. She is today requesting sedation for PET scan which was explained that that requires planning so the appropriate Providers are available to oversee. Case discussed with Case Mgmt, Nursing, Attending LOCOMOTIVE SWITCH OPERATOR. It is my understanding that the pt has requested to be discharged to home so she can have PET scan. Once pt is discharged then we can order PET with sedation. Will contact pt with appt date and time. She already has f/u with Medical Oncologist.
[2022-02-01 20:27] LABS: Glucose,Whole Blood 159 mg/dL (70-110)
[2022-02-01] MEDS: ASPIRIN 81 MG PO SCH (21:17)
[2022-02-01] MEDS: PREGABALIN 100 MG CAP PO SCH (21:17)
[2022-02-01] MEDS: PRAVASTATIN SODIUM 40 MG TAB PO SCH (21:17)
[2022-02-01] MEDS: DOXAZOSIN 4 MG TAB PO SCH (21:17)
[2022-02-01] MEDS: CHOLECALCIFEROL 25 MCG (1000 IU) TABLET PO SCH (21:17)
[2022-02-01] MEDS: CYANOCOBALAMIN 500 MCG TAB PO SCH (21:18)
[2022-02-02 06:16] LABS: Glucose,Whole Blood 141 mg/dL (70-110)
[2022-02-02] MEDS: LEVOTHYROXINE 125 MCG TAB PO SCH (06:23)
[2022-02-02] MEDS: INSULIN ASPART (NovoLOG) 100 UNIT/ML VIAL SQ SCH ×2 (06:27→12:05)
[2022-02-02 08:06] VITALS: RESP 16; TEMP 97.8
[2022-02-02] MEDS: ALBUTEROL NEBULIZED 2.5 MG/3 ML INHALATION PRN (08:55)
[2022-02-02] MEDS: SYMBICORT 160-4.5 MCG INHALER INHALATION SCH (08:56)
[2022-02-02] MEDS: PREGABALIN 100 MG CAP PO SCH (09:09)
[2022-02-02] MEDS: APIXABAN 5 MG TAB PO SCH (09:09)
[2022-02-02] MEDS: allopurinoL 100 MG TAB PO SCH (09:09)
[2022-02-02] MEDS: MONTELUKAST 10 MG TAB PO SCH ×2 (09:09→09:20)
[2022-02-02] MEDS: SENNOSIDES-DOCUSATE SODIUM 1 EACH TAB PO SCH (09:10)
[2022-02-02] MEDS: PANTOPRAZOLE 40 MG TABLET PO SCH (09:10)
[2022-02-02] MEDS: MORPHINE SULFATE ER 30 MG TABLET PO SCH (09:10)
[2022-02-02] MEDS: HYDROPHILIC CREAM 180 GM TUBE TOPICAL SCH (09:11)
[2022-02-02] MEDS: buPROPion SR 100 MG TABLET.ER PO SCH (09:11)
[2022-02-02] MEDS: DEXAMETHASONE SOD PHOSPHATE 4 MG/ML 1 ML VIAL IVP SCH (09:11)
[2022-02-02 10:30] LABS: Calcium 8.4 mg/dL (8.4-10.2); Potassium 4.4 mmol/L (3.5-5.1)
[2022-02-02 11:49] LABS: Glucose,Whole Blood 149 mg/dL (70-110)
[2022-02-02 12:21] VITALS: BP 133/76; PULSE 83
--- NOTE | 2022-02-02 14:47 | P.PN ---
Subjective Progress Note Date: 02/02/22 81-year-old female who presented to the emergency department, via EMS, on January 26, complaining of generalized weakness. In addition, the patient had recent cervical spine surgery, at level C3 through C7, December 28, at [facility]. The patient states that her left arm pain, and swelling, as well as lack of mobility, preceded the surgery. She had the surgery hoping that he would help to improve the left upper extremity. Unfortunately it has not. She denies any difficulty breathing, coughing, wheezing, or phlegm production. No abdominal pain, nausea, vomiting, or diarrhea. No chest pain. No urinary complaints. The patient does have a history of lung cancer, GERD, hyperlipidemia, hypertension, and pneumonia. She's had a previous right upper lobectomy, 2005 for her lung cancer. In addition, she has a nodule in the left upper lobe, thought to possibly be lung cancer as well. The patient is on 3 L of oxygen. The left upper lobe pulmonary nodule is being followed with serial CT scanning. The most recent computed tomography scan showed that the nodule was stable in size. Because of a abnormal PET scan of the nodule, the patient was treated with stereotactic body radiotherapy (SBRT) Doppler of the lower extremities reveal no DVT in the right leg, and a possible chronic DVT in the left leg. On today's evaluation, the patient is on anticoagulation and she is currently on Eliquis 5 mg by mouth twice a day. As mentioned, she has a left lower extremity DVT. The blood work from today shows a white cell count of 9.7 with a hemoglobin of 12.7 and a platelet count of 360. BUN is 47 with a creatinine of 0.8 and a sodium level is at 131. The CAT scan of the chest that was done on 01/29/2022 showed estimated left upper lobe lesion for which the patient received SBR T. There was also evidence of mediastinal lymphadenopathy with interval progression. There was bilateral renal calculi and a stable ascending aortic aneurysm measuring 4.6 cm and a trace left-sided pleural effusion. There was no evidence of any filling defect to suggest pulmonary embolism. The patient had instigated masslike density in the left upper lobe measuring 2.7 x 1.2 cm. Also, the Doppler of the lower extremity showed mild chronic DVT in the left femoral vein. No evidence of any DVT on the right. She is currently wearing a neck collar. She is also on Decadron 4 mg IV 3 times a day she also has a stage II pressure ulcer on her right buttocks and she is being seen by wound services. On 02/04/2022, no new complaints and the patient is on anticoagulation with Eliquis 5 mg by mouth twice a day. Left upper extremity remains swollen and weak. No respiratory distress and the patient is on 2 L O2 nasal cannula with a pulse ox of 95%. Medications remain unchanged. Remains on Decadron. Objective - Vital Signs Vital signs: Vital Signs Temp 97.8 F 02/02/22 08:00 Pulse 83 02/02/22 12:00 Resp 16 02/02/22 12:00 BP 133/76 02/02/22 12:00 Pulse Ox 95 02/02/22 12:00 FiO2 Intake & Output 02/01/22 02/02/22 02/02/22 18:59 06:59 18:59 Output Total 300 Balance -300 Weight 102 kg Output: Urine 300 Other: Voiding Method External Catheter External Catheter External Catheter # Bowel Movements 2 2 - Exam No acute distress, oriented 3. Currently on 2 L. This is her home dose. No respiratory difficulty or distress. No use of accessory muscles or conversational dyspnea. HEENT examination is grossly unremarkable. Neck supple. Full range of motion. No adenopathy thyromegaly or neck vein distention. Cervical collar in place. Cardiovascular examination reveals regular rhythm rate. S1-S2 normal. No S3 or S4. No discernible murmur noted. Heart rate 84 bpm. Lungs reveal mostly clear breath sounds. Minimal rhonchi. No wheezes or crackles. Breath sounds equal bilaterally. Saturations are 93 %. Abdomen soft bowel sounds are heard. No masses or tenderness. Extremities reveal a very painful, swollen left upper extremity. She could hardly move it. The rest of the extremities appear normal. Skin is without rash or lesion. Neurologic examination is brief but nonfocal. - Labs CBC & Chem 7: 02/01/22 07:00 02/02/22 09:34 Labs: Abnormal Lab Results - Last 24 Hours (Table) 02/01/22 02/01/22 02/02/22 Range/Units 16:35 20:26 06:15 Sodium (137-145) mmol/L Chloride (98-107) mmol/L Carbon Dioxide (22-30) mmol/L BUN (7-17) mg/dL Glucose (74-99) mg/dL POC Glucose (mg/dL) 123 H 159 H 141 H (70-110) mg/dL 02/02/22 02/02/22 Range/Units 09:34 11:47 Sodium 132 L (137-145) mmol/L Chloride 89 L (98-107) mmol/L Carbon Dioxide 38 H (22-30) mmol/L BUN 44 H (7-17) mg/dL Glucose 119 H (74-99) mg/dL POC Glucose (mg/dL) 149 H (70-110) mg/dL Microbiology - Last 24 Hours (Table) 01/26/22 15:10 Blood Culture - Final Blood No Growth after 144 hours 01/26/22 15:25 Blood Culture - Final Blood No Growth after 144 hours Assessment and Plan Plan: Left upper extremity DVT, with pain, swelling, and immobility of the extremity. Addition to that, the patient is a chronic DVT involving the right femoral vein. The patient is currently on anticoagulation with Eliquis. Multiple osseous lesions, consistent with metastatic lung cancer. Recent C3-C7 surgery, 12/28/2021 at [facility]. History of severe oxygen-dependent COPD. Right upper lobectomy, for non-small cell lung cancer, 2005. FDG avid 1.4 cm lesion left upper lobe, status post SBRT. Right lower extremity DVT. History of hyperlipidemia. History of hypertension. History of gastroesophageal reflux disease. Plan: Continue anticoagulation with Eliquis 5 mg by mouth twice a day Patient continues to have left upper extremity weakness Decadron. The surgical and the medical team Follow-up with spine surgery Follow-up with oncology discharge planning is in progress Pulmonary critical care services will sign off. I do not believe that the patient is outpatient and will be glad to see an outpatient basis regarding her lung cancer if needed. She follows up with oncology, Dr. Brock.
--- NOTE | 2022-02-02 15:20 | P.DS ---
Providers Date of admission: 01/26/22 15:07 Attending physician: Segundo Armenta Consults: 01/26/22 15:07 Consult Physician Routine Consulting Provider: [facility] Consult Reason/Comments: Elevated troponin Do you want consulting provider notified?: Yes 01/26/22 15:09 Consult Physician Routine Consulting Provider: Manolo Nam Consult Reason/Comments: Lung mass Do you want consulting provider notified?: Yes 01/28/22 10:16 Consult Physician Routine Consulting Provider: Tam Collier Consult Reason/Comments: cancer, weakness, sees outpatient Do you want consulting provider notified?: Yes 01/29/22 12:38 Consult Physician Routine Consulting Provider: Travis Muse Consult Reason/Comments: suspect metastatic lung cancer, pain Do you want consulting provider notified?: Yes Primary care physician: Oscar Redd [facility] Course: Final Diagnosis Generalized weakness and left arm pain. Improved. Left upper lobe patchy infiltrate with possible atelectasis versus pneumonia procalcitonin negative 0.22. Urinary tract infection without sepsis present on admission, culture negative Lung cancer with history of left upper lobe resection in 2005 and disease progression recently. Scheduled for PET scan as outpatient Recently diagnosed DVT of the right lower extremity and left upper extremity. Currently on Eliquis. Elevated troponin level Unlikely ACS. Recent echocardiogram at [facility] showed normal ejection fraction and no significant wall motion abnormalities noted. Hypertension Hyperlipidemia GERD Discharge Disposition Patient has refused discharge to subacute rehab and will be discharging home with homecare and home PT. Patient is strongly advised to discharge to rehab and the risks of discharging home were discussed. Patient with recent cervical spine surgery at [facility], currently wearing C-Spine collar per surgeon recommendations from prior hospital stay. Patient also to follow up with oncology outpatient to schedule PET scan. Continue pain management and bowel regimen. Recommend to elevate her left upper extremity on pillows. Hold furosemide and aldactone for 2 days and can resume. Decreased lasix to 20 mg daily. Repeat labs in 2 days to monitor sodium level. Hospital Course This is an 81 year old female with known history of lung cancer status post right upper lobe resection in 2005, hypertension, hyperlipidemia, GERD. Patient is sent to the hospital from oncology reports generalized weakness as well as left extremity weakness and discomfort mostly neuropathic pain around the wrist area. Patient has a recent history of cervical spine surgery in December 2021 [facility]. Since then she's becoming more weak and having left arm pain. Patient does state that she was diagnosed with acute DVT in the left upper extremity at [facility] prior to her cervical spine surgery. Her eliquis was on hold during that time pending surgery when she developed upper extremity swelling. She does have history of right DVT, left leg is negative for DVT. On admission patient had a chest x-ray completed which shows patchy airspace with normal upper lung region of known spiculated nodule which is Atelectasis Versus Infiltrate Versus Worsening Cancer. Her Procalcitonin Level Was Found to Be 0.22 Which Is Not Suggestive of a Bacterial Pneumonia Process. She Denies Fever or Chills, No Shortness of Breath, No Chest Pain, however she is significantly weak. She has been started on MS contin and will trial pregabalin 100 mg BID for upper extremity neurophatic pain. Patient will be discharged to subacute rehab and will need to see oncology outpatient once discharged from rehab. PET scan will be scheduled as an outpatient once oncology follows up with patient. She did have troponin elevation this admission was evaluated by cardiology and recommended to follow up with her own scouts on discharge. Sodium level 132 on admission, had improved slightly and back down to 131, will recommend to hold lasix and aldactone for 2 days on discharge and repeat labs. Lasix will be decreased to 20 mg PO daily. Patient will also need to follow up with pulmonary on discharge. 02/01/2022 Patient is monitored today sitting up in bed. She reports pain to the left arm rating a 0/0 at rest and 10/10 with movement. Medications have been further adjusted and recommend to elevated left arm when resting. Has equal hand grasp. Left arm is edematous has +2 peripheral pulse. She continues in C Collar. Cardiology, pulmonary have cleared for DC. Will discharge on oral steroid taper. No shortness of breath no chest pain. She has had a BM 2 days ago and reports feeling slightly constipated. Abdomen is soft and nontender. She has normoactive bowel sounds in all 4 quadrants. She is alert x 3. Sodium 131 today. 02/02/2022 Patient has decided to discharge home with homecare services and home PT. She has refused subacute rehab. Strongly advised patient to consider rehab on discharge however she is concerned about PET scan and does not wish to prolong testing any further. Her left arm pain has improved to 5-6/10 and will continue on MS contin and pregabalin dosing has been decreased to avoid over sedation as patient is now discharging home. She has been instructed to elevate arm when ambulating and can wrap arm with whitney if tolerating. Sodium has improved to 132 after gentle hydration. glucose 119. Blood pressure 133/76. Patient is saturating 96% on 2L nasal cannula. She will continue wearing oxygen as needed on discharge, which she already has home oxygen set up. Her lungs are clear, S1, S2 auscultated, abdomen is soft and nontender. She is having bowel movements. Plan for discharge home today. Total time taken in discharge planning greater than 35 minutes. Please see medication reconciliation for a list of current medication. Thank you for allowing us to participate in the care of this patient. The impression and plan of care has been dictated by Bessy Duong, Nurse Practitioner as directed. Dr. Daniel MD I have performed a history and physical examination and medical decision making of this patient, discussed the same with the dictator, and agree with the dictators assessment and plan as written, documented as a scribe. Based on total visit time, I have performed more than 50% of this visit. Patient Condition at Discharge: Fair Plan - Discharge Summary Discharge Rx Participant: Yes New Discharge Prescriptions: New Hydrophilic Cream [Kerodex 71 Cream] 1 applic TOPICAL DAILY #1 gm polyethylene glycoL 3350 [Miralax] 17 gm PO DAILY PRN packet PRN Reason: Constipation Sennosides-Docusate Sodium [Senokot-S] 2 each PO BID tab Pregabalin [Lyrica] 75 mg PO BID 3 Days #6 cap Lactulose [Cephulac] 10 gm PO BID PRN #30 ml PRN Reason: Constipation dexAMETHasone [Decadron] 0 mg PO DIRECTED 6 Days #6 tablet Morphine Sulfate ER [Ms Contin] 15 mg PO Q12HR 3 Days #6 tab Continue Tolterodine ER [Detrol LA] 4 mg PO DAILY Cyanocobalamin (Vitamin B-12) [Vitamin B-12] 1,000 mcg PO HS Budesonide/Formoterol Fumarate [Symbicort 160-4.5 Mcg Inhaler] 2 puff INHALATION RT-BID Apixaban [Eliquis] 5 mg PO BID Vit C/E/Zn/Coppr/Lutein/Zeaxan [Preservision Areds 2 Softgel] 2 cap PO HS Doxazosin [Cardura] 4 mg PO HS Albuterol Inhaler [Ventolin Hfa Inhaler] 2 puff INHALATION RT-QID PRN PRN Reason: Shortness Of Breath Umeclidinium Houck [Incruse Ellipta] 1 puff INHALATION RT-DAILY Pravastatin Sodium [Pravachol] 40 mg PO HS Omeprazole [PriLOSEC] 20 mg PO BID Montelukast Sodium [Singulair] 10 mg PO DAILY Aspirin EC [Ecotrin Low Dose] 81 mg PO HS allopurinoL [Zyloprim] 100 mg PO BID buPROPion HCL [buPROPion HCL SR] 100 mg PO BID Cholecalciferol [Vitamin D3 (25 Mcg = 1000 Iu)] 50 mcg PO HS Levothyroxine Sodium [Synthroid] 125 mcg PO DAILY Spironolactone [Aldactone] 25 mg PO DAILY #0 Changed Furosemide [Lasix] 20 mg PO DAILY #0 Discontinued Gabapentin [Neurontin] 100 mg PO TID Hydrocodone/Acetaminophen [Hydrocodone/Acetaminophen 7.5-325] 1 tab PO Q6H PRN PRN Reason: Pain Discharge Medication List Albuterol Inhaler [Ventolin Hfa Inhaler] 2 puff INHALATION RT-QID PRN 08/23/19 [History] Apixaban [Eliquis] 5 mg PO BID 08/23/19 [History] Aspirin EC [Ecotrin Low Dose] 81 mg PO HS 08/23/19 [History] Budesonide/Formoterol Fumarate [Symbicort 160-4.5 Mcg Inhaler] 2 puff INHALATION RT-BID 08/23/19 [History] Cyanocobalamin (Vitamin B-12) [Vitamin B-12] 1,000 mcg PO HS 08/23/19 [History] Doxazosin [Cardura] 4 mg PO HS 08/23/19 [History] Montelukast Sodium [Singulair] 10 mg PO DAILY 08/23/19 [History] Omeprazole [PriLOSEC] 20 mg PO BID 08/23/19 [History] Pravastatin Sodium [Pravachol] 40 mg PO HS 08/23/19 [History] Tolterodine ER [Detrol LA] 4 mg PO DAILY 08/23/19 [History] Umeclidinium Houck [Incruse Ellipta] 1 puff INHALATION RT-DAILY 08/23/19 [History] Vit C/E/Zn/Coppr/Lutein/Zeaxan [Preservision Areds 2 Softgel] 2 cap PO HS 08/23/19 [History] allopurinoL [Zyloprim] 100 mg PO BID 08/23/19 [History] Cholecalciferol [Vitamin D3 (25 Mcg = 1000 Iu)] 50 mcg PO HS 01/26/22 [History] Levothyroxine Sodium [Synthroid] 125 mcg PO DAILY 01/26/22 [History] buPROPion HCL [buPROPion HCL SR] 100 mg PO BID 01/26/22 [History] Furosemide [Lasix] 20 mg PO DAILY #0 02/01/22 [Rx] Hydrophilic Cream [Kerodex 71 Cream] 1 applic TOPICAL DAILY #1 gm 02/01/22 [Rx] Lactulose [Cephulac] 10 gm PO BID PRN #30 ml 02/01/22 [Rx] Sennosides-Docusate Sodium [Senokot-S] 2 each PO BID tab 02/01/22 [Rx] Spironolactone [Aldactone] 25 mg PO DAILY #0 02/01/22 [Rx] dexAMETHasone [Decadron] 0 mg PO DIRECTED 6 Days #6 tablet 02/01/22 [Rx] polyethylene glycoL 3350 [Miralax] 17 gm PO DAILY PRN packet 02/01/22 [Rx] Morphine Sulfate ER [Ms Contin] 15 mg PO Q12HR 3 Days #6 tab 02/02/22 [Rx] Pregabalin [Lyrica] 75 mg PO BID 3 Days #6 cap 02/02/22 [Rx] Follow up Appointment(s)/Referral(s): Tam Collier DO [Doctor of Osteopathic Medicine] - 1 Week (Phone is busy. Please call to schedule appointment) Oscar Redd MD [Primary Care Provider] - 02/05/22 9:40 am (Tuesday appointment with Dr Marquez) Manolo Nam MD [STAFF PHYSICIAN] - 03/02/22 4:30 pm (Tuesday. Previously scheduled appointment. If Dr wants to see you earlier they will call you.) Ambulatory/Diagnostic Orders: Basic Metabolic Panel [LAB.AMB] Time Frame: 2 Days, Location: None Selected Complete Blood Count w/diff [LAB.AMB] Time Frame: 3 Days, Location: None Selected Activity/Diet/Wound Care/Special Instructions: Continue with Triad hydrophillic cream to right buttocks daily and as needed Follow up at [facility] as needed Hold spironolactone and also furosemide for 2 days and than resume Repeat metabolic panel in 2 days outpatient to monitor sodium level Continue eliquis PET scan will be scheduled as outpatient and oncology will follow up with patient Follow up with your surgeon and scouts as previous recommended Follow up with Pulmonary Continue MS contin twice a day and also lyrica twice a day Can use tylenol for breakthrough pain. Discharge Disposition: HOME WITH HOME HEALTH SERVICES
--- NOTE | 2022-02-02 19:00 | P.PN ---
Subjective Progress Note Date: 02/02/22 Principal diagnosis: Intractable pain, elevated troponins In f/u today pt is smiling. Her neuropathy medication was changed to Lyrica with some improvements. She is able to lift the bottom part of her arm without too much pain. Objective - Vital Signs Vital signs: Vital Signs Temp 97.8 F 02/02/22 08:00 Pulse 83 02/02/22 12:00 Resp 16 02/02/22 12:00 BP 133/76 02/02/22 12:00 Pulse Ox 95 02/02/22 12:00 FiO2 Intake & Output 02/01/22 02/02/22 02/02/22 18:59 06:59 18:59 Output Total 300 Balance -300 Weight 102 kg Output: Urine 300 Other: Voiding Method External Catheter External Catheter External Catheter # Bowel Movements 2 2 - Constitutional General appearance: Present: cooperative, no acute distress, obese - EENT Eyes: Present: anicteric sclerae, EOMI ENT: Present: hearing grossly normal - Respiratory Details: Respirations even and unlabored at rest - Musculoskeletal Musculoskeletal: Present: generalized weakness - Psychiatric Psychiatric: Present: A&O x's 3, appropriate affect, intact judgment & insight - Labs CBC & Chem 7: 02/01/22 07:00 02/02/22 09:34 Labs: Abnormal Lab Results - Last 24 Hours (Table) 02/01/22 02/02/22 02/02/22 Range/Units 20:26 06:15 09:34 Sodium 132 L (137-145) mmol/L Chloride 89 L (98-107) mmol/L Carbon Dioxide 38 H (22-30) mmol/L BUN 44 H (7-17) mg/dL Glucose 119 H (74-99) mg/dL POC Glucose (mg/dL) 159 H 141 H (70-110) mg/dL 02/02/22 Range/Units 11:47 Sodium (137-145) mmol/L Chloride (98-107) mmol/L Carbon Dioxide (22-30) mmol/L BUN (7-17) mg/dL Glucose (74-99) mg/dL POC Glucose (mg/dL) 149 H (70-110) mg/dL Microbiology - Last 24 Hours (Table) 01/26/22 15:10 Blood Culture - Final Blood No Growth after 144 hours 01/26/22 15:25 Blood Culture - Final Blood No Growth after 144 hours Assessment and Plan (1) DVT (deep venous thrombosis) Status: Acute Priority: High Code(s): I82.409 - ACUTE EMBOLISM AND THOMBOS UNSP DEEP VN UNSP LOWER EXTREMITY SNOMED Code(s): 214716724 (2) Adenocarcinoma, lung Status: Acute Priority: High Code(s): C34.90 - MALIGNANT NEOPLASM OF UNSP PART OF UNSP BRONCHUS OR LUNG SNOMED Code(s): 740850362 (3) Acute cervical radiculopathy Status: Acute Priority: High Code(s): M54.12 - RADICULOPATHY, CERVICAL REGION SNOMED Code(s): 32124324 Plan: Patient is on eliquis for recently diagnosed left upper extremity DVT and right lower extremity DVT. BLE doppler was done, no clot in RLE, chronic DVT in LLE seen. Continue elliquis. Patient does have a history of lung cancer. Over the last 2 months she has evidence of disease progression on imaging, plans were for PET scan to determine extent and for documentation of FDG avid areas as pt is not a candidate for pulmonary biopsy 2/2 to severe COPD. Plans were to treat if PET positive. She is now requesting PET scan with sedation. We will get patient scheduled for a PET scan with sedation once she is discharged. Patient is aware. We will plan for follow-up with Dr. Nam 3-5 days after the PET scan is completed. Radiculopathy, s/p anterior access fusion of C4 & 5, C6 & 7. Pain is in LUE. Pain meds adjusted with tolerable pain at rest, if the LUE is moved she is in severe pain. Patient was encouraged to follow up with the Surgeon. Suspect that some of the patient's pain is from a humerus lesion, pending PET scan for confirmation of hypermetabolic activity. Patient will be sent back to [facility] for palliative treatment
== END 2022-02-02 16:48 | disposition home health service (06) | DRG 300 ==
LOC: EC 12:27 → 3SCARD 15:07
PROVIDERS: ADMIT Internal Medicine; ATTEND Internal Medicine
DX: I82.622 Acute embolism and thrombosis of deep veins of left upper extremity (principal); C34.12 Malignant neoplasm of upper lobe, left bronchus or lung; C79.51 Secondary malignant neoplasm of bone; N39.0 Urinary tract infection, site not specified; J90 Pleural effusion, not elsewhere classified; J96.11 Chronic respiratory failure with hypoxia; J96.12 Chronic respiratory failure with hypercapnia; I82.512 Chronic embolism and thrombosis of left femoral vein; E86.0 Dehydration; R77.8 Other specified abnormalities of plasma proteins; N20.0 Calculus of kidney; I71.21 Aneurysm of the ascending aorta, without rupture; K21.9 Gastro-esophageal reflux disease without esophagitis; Z96.653 Presence of artificial knee joint, bilateral; Z96.611 Presence of right artificial shoulder joint; E78.5 Hyperlipidemia, unspecified; G62.9 Polyneuropathy, unspecified; L89.312 Pressure ulcer of right buttock, stage 2; Z99.81 Dependence on supplemental oxygen; I25.10 Atherosclerotic heart disease of native coronary artery without angina pectoris; Z20.822 Contact with and (suspected) exposure to COVID-19; I12.9 Hypertensive chronic kidney disease with stage 1 through stage 4 chronic kidney disease, or unspecified chronic kidney disease; N18.30 Chronic kidney disease, stage 3 unspecified; M19.90 Unspecified osteoarthritis, unspecified site; M54.12 Radiculopathy, cervical region; J44.9 Chronic obstructive pulmonary disease, unspecified; R53.81 Other malaise; K59.00 Constipation, unspecified; Z87.01 Personal history of pneumonia (recurrent); Z88.8 Allergy status to other drugs, medicaments and biological substances; Z90.2 Acquired absence of lung [part of]; Z87.891 Personal history of nicotine dependence; Z79.899 Other long term (current) drug therapy; Z79.890 Hormone replacement therapy; Z79.01 Long term (current) use of anticoagulants; Z79.51 Long term (current) use of inhaled steroids; Z79.82 Long term (current) use of aspirin; Z86.14 Personal history of Methicillin resistant Staphylococcus aureus infection; Z85.118 Personal history of other malignant neoplasm of bronchus and lung; Z71.3 Dietary counseling and surveillance; Z92.21 Personal history of antineoplastic chemotherapy; Z92.3 Personal history of irradiation
CPT/HCPCS: 36415; 71045; 71046; 71260; 80048; 80053; 81001; 83605; 83735; 84145; 84443; 84484; 85025; 85610; 85730; 87040; 87070; 87086; 87205; 87635; 93005; 93970; 94640; 94760; 96365; 96375; 99285